=== PATIENT | female | born 1980 | race American Indian/Alaskan Native ===

== ENCOUNTER 2016-08-19 07:56 | Inpatient (IN) | payer OTHER ==
[2016-08-19] MEDS ORDERED: DUONEB 0.5 MG-3 MG/3 ML SOLN IH ONE (08:49)
[2016-08-19] MEDS ORDERED: TESSALON PERLES PO ONE (08:49)
[2016-08-19] MEDS ORDERED: MAGNESIUM SULFATE 2GM/50ML 50 ML IV ONE (08:50)
[2016-08-19 09:12] LABS: Basophils % (Auto) 0.8 % (0.0-1.8); Eosinophils % (Auto) 0.4 % (0.0-4.3); Hematocrit 44.1 % (30.3-42.9); Hemoglobin 13.8 gm/dl (10.1-14.3); Mean Corpuscular HGB Conc 31 % (30-34); Mean Corpuscular Volume 82 fl (79-97); Platelet Count 203 K/mm3 (140-440); Red Blood Count 5.35 M/mm3 (3.65-5.03); Red Cell Distribution Width 15.4 % (13.2-15.2); White Blood Count 13.7 K/mm3 (4.5-11.0)
[2016-08-19 09:15] LABS: Mean Corpuscular Hemoglobin 26 pg (28-32)
[2016-08-19] MEDS ORDERED: NACL 0.9% 1000 ML 1,000 ML IV ONE ×2 (09:25→09:26)
[2016-08-19 09:32] LABS: Alanine Aminotransferase 11 units/L (7-56); Albumin 3.3 g/dL (3.9-5); Albumin/Globulin Ratio 0.8 %; Alkaline Phosphatase 69 units/L (35-129); BUN/Creatinine Ratio 16.66; Bilirubin,Total 0.5 mg/dL (0.1-1.2); Blood Urea Nitrogen 10 mg/dL (7-17); Calcium 8.8 mg/dL (8.4-10.2); Carbon Dioxide 24 mmol/L (22-30); Chloride 96.9 mmol/L (98-107); Glucose 377 mg/dL (65-100); Potassium 3.5 mmol/L (3.6-5.0); Sodium 138 mmol/L (137-145); Total Protein 7.2 g/dL (6.3-8.2)
[2016-08-19 09:45] LABS: INR 1.06 (0.87-1.13)
[2016-08-19 09:46] LABS: Partial Thromboplastin Time 26.8 Sec. (24.2-36.6)
[2016-08-19 09:50] LABS: Anion Gap 21 mmol/L
--- NOTE | 2016-08-19 09:51 | Admit Criteria Form ---
Admission Criteria Documentation: PULMONARY DISEASE GRG Clinical Indications for Admission to Inpatient Care ( Place 'X' for any and all applicable criteria): Hospital admission is needed for appropriate care of the patient because of ANY ONE of the following(1): [ ]I. Impending or actual respiratory arrest ( Use Respiratory Failure Criteria for severe respiratory disease and long-term mechanical ventilation patients) (4) [ ]II. Severe airflow or ventilation abnormalities (not responsive to emergency and observation care treatment as appropriate) as indicated by ANY ONE of the following(5)(6)(7)(8) : [ ]a) PCO2 > 42 mm Hg (5.6 kPa) and pH < 7.35 (new) [ ]b) Documented PCO2 increase > 5 mm Hg (0.7 kPa) from disease baseline [ ]c) Airflow measurements[A] < 60% of previous best or predicted ( e.g., PEF <300 L/minute) despite intensive emergent treatment[B] [ ]d) Required respiratory treatments that are performable only in acute inpatient setting [ X]III. Severe respiratory findings (not responsive to emergency and observation care treatment as appropriate) including ANY ONE of the following(5)(8)(9): [X]a) Respiratory distress as indicated by ALL of the following(5)(10): [X ]i) Patient with ANY ONE of the following: [ ]1) Dyspnea (difficulty breathing) [ ]2) Abnormal breathing pattern (eg, chest retractions) [X ]3) Tachypnea [ ]4) Other evidence of difficulty breathing [X ]ii) Evidence of respiratory compromise indicated by ANY ONE of the following: [X ]1) Hypoxemia [ ]2) Altered mental status [ ]3) Other evidence of respiratory compromise (eg, pulmonary edema on chest x-ray) [ ]b) Stridor [ ]c) Gross hemoptysis(11) [ ]d) Acute cyanosis [ ]IV. High-risk pulmonary infection as indicated by ANY ONE of the following( 19)(20)(21)(22): [ ]a) Temperature less than 95 degrees F(35 degrees C) or greater than 103.1 degrees F(39.5 degrees C) [ ]b) Hemodynamic instability that remains after emergency or observation level care (as appropriate) [ ]c) Immunocompromised patient (eg, AIDS, post transplant, neutropenic) [ ]d) History of severe COPD [ ]e) History of severely symptomatic congestive heart failure [ ]f) Other high-risk comorbidity (eg, poorly controlled diabetes, cirrhosis, chronic renal insufficiency) [ ]g) Hypoxemia (new) [ ]h) Outpatient, observation, or recovery facility therapy has failed, is not appropriate, or is not feasible [ ]V. Severe atelectasis or lung collapse(15)(16) [ ]. Tuberculosis requiring inpatient treatment as indicated by ANY ONE of the following(17)(18): [ ]a) New positive acid-fast bacilli sputum smear [ ]b) Positive acid-fast bacilli smear (under current treatment), with ANY ONE of the following: [ ]i) Unexposed household contacts [ ]ii) Infants or immunosuppressed household contacts [ ]iii) Patient unable or unwilling to avoid exposing others [ ]iv) Severe immunocompromised patient (eg, AIDS, post transplant, neutropenic) [ ]VII. Empyema or lung abscess(13)(14) [ ]VIII. Severe pulmonary arterial hypertension or pulmonary vascular disease requiring inpatient care indicated by ANY ONE of the following(24)(25): [ ]a) Initiation or change of vasodilators (IV, subcutaneous, or inhaled) or other vasoactive medications needed [ ]b) IV anticoagulation needed (eg, immediate anticoagulation necessary, alternatives not appropriate) [ ]c) Arterial or pulmonary artery catheter monitoring needed due to infusion or other treatment [ ]IX. Chronic lung disease with severe deterioration (not responsive to emergency and observation care treatment as appropriate) as indicated by ANY ONE of the following (6)(12): [ ]a) SaO2 5% below baseline in patient with chronic hypoxemia [ ]b) New requirement for supplemental oxygen to keep SaO2 at baseline or acceptable level [ ]c) Required supplemental oxygen performable only in acute inpatient setting [ ]d) Severe airflow or ventilation abnormalities [ ]e) Rapid rate of exacerbation onset [ ]f) Previously mobile patient unable to walk between rooms [ ]g) Inability to eat or sleep due to dyspnea [ ]h) Altered mental status [ ]X. Cystic fibrosis with severe deterioration as indicated by ANY ONE of the following(26)(27): [ ]a) Severe exacerbation that does not respond to intensified home therapy [ ]b) Pneumonia [ ]c) Hemoptysis [ ]d) Atelectasis [ ]e) Pneumothorax [ ]f) Respiratory failure [ ]g) Severe exacerbation with patient unable to perform prescribed treatments at home [ ]XI. Severe right heart failure as indicated by ANY ONE of the following(24) (25): [ ]a) Increasing organ failure (eg, liver congestion with significant and worsening or new elevation of transaminases) [ ]b) Anasarca [ ]c) Angina that requires inpatient care (eg, not treatable in emergency or observation level of care) [ ]d) Respiratory distress [ ]e) Syncope [ ]f) SBP < 90 mm Hg (new) [ ]XII. Injury requiring inpatient care (medical) as indicated by ANY ONE of the following(28): [ ]a) Significant inhalation injury (eg, smoke inhalation, other toxic inhalation) (29)(30)(31) [ ]b) Airway obstruction that remains or is unstable after emergency or observation level care(32) [ ]c) Severe pain requiring acute inpatient management [ ]d) Lung contusion [ ]e) Bronchial tree injury [ ]f) Air or fat emboli(33) [ ]g) Other injury not treatable in emergency or observation level care (eg, hemothorax) (34) [ ]XIII. Pulmonary hemorrhage or significant hemoptysis(11)(35)(36) [ ]XIV. Inpatient palliative care needed[C](37)(38)(39)(40) [ ]XV. Complications of lung transplant (eg, rejection, failure, respiratory infection) (23) [ ]XVI. Pulmonary Disease and ANY ONE of the following: [ ]a) General Admission Criteria [ ]b) Pediatric General Admission Criteria [facility] has been revised. The portions of the content which have been revised are identified through the use of italic text or in bold, and [facility] has neither reviewed nor approved the modified material. All other unmodified content is copyright [facility]. Please see references footnoted in the original [facility] edition 2016 Admission Criteria Met: Yes
--- NOTE | 2016-08-19 09:54 | XRay Report ---
Portable chest: There is a diffusely coarse bronchovascular pulmonary pattern throughout both lungs. There is no focal mass or pleural effusion. There is some question concerning ill-defined infiltrate in the lower right lung however this may be due to poor inspiration. This is not apparent on recent study of July 16, 2016. The heart is normal in size. Impression: Fibrotic lung disease. Questionable infiltrate in right lower lung.
--- NOTE | 2016-08-19 10:21 | Emergency Department Report ---
HPI - General Chief Complaint: Dyspnea/Respdistress Time Seen by Provider: 08/19/16 08:43 - HPI HPI: The patient is a 36 yo female with a significant history of sarcoidosis, diabetes, afib, and who presents for evaluation of dyspnea. The patient reports 1 week of progressive dyspnea, constant and severe since this morning, 4 hours prior to my eval, exacerbated with attempted exertion or activity, and associated with wheezing, mild midsternal chest tightness, and a nonproductive cough. The patient denies fever, syncope, hemoptysis, unilateral leg swelling, oral contraceptive use, recent immobilization, history of DVT or PE, hx cancer. ED Past Medical Hx - Past Medical History Previous Medical History?: Yes Hx Hypertension: Yes Hx Diabetes: Yes Additional medical history: Sarchoidosis. Afib - Surgical History Past Surgical History?: Yes Additional Surgical History: x3 - Social History Smoking Status: Current Every Day Smoker Substance Use Type: None - Medications Home Medications: Home Medications Medication Instructions Recorded Confirmed Last Taken Type ALBUTEROL Inhaler [ProAir HFA 2 puff IH QID PRN #1 inhalation 07/16/16 08/19/16 Unknown Rx Inhaler] ALBUTEROL NEB's [Proventil 0.083% 2.5 mg IH QID PRN #1 box 07/16/16 08/19/16 Unknown Rx NEBS] Amiodarone [Cordarone 200 MG TAB] 200 mg PO DAILY #30 tablet 07/16/16 08/19/16 Unknown Rx Aspirin 162 mg PO DAILY 07/16/16 08/19/16 Unknown History Insulin NPH Hum/Reg Insulin Hm 50 unit SQ BID 07/16/16 08/19/16 Unknown History [HumuLIN 70-30 Vial] Lisinopril/Hydrochlorothiazide 1 tab PO QDAY #30 tablet 07/16/16 08/19/16 Unknown Rx [Zestoretic 10-12.5 mg] Metoprolol Tartrate [Lopressor] 50 mg PO BID 07/16/16 08/19/16 Unknown History predniSONE [Deltasone] 20 mg PO BID #14 tablet 07/16/16 08/19/16 Unknown Rx ED Review of Systems ROS: Stated complaint: SARCOID /AIFIB Other details as noted in HPI Constitutional: denies: fever ENT: denies: throat or neck pain Respiratory: reports cough, shortness of breath Cardiovascular: denies: chest pain Endocrine: denies unexplained weight loss or gain Gastrointestinal: denies: abdominal pain, nausea Genitourinary: denies: dysuria Musculoskeletal: denies: leg swelling Skin: denies: rash Neurological: denies: headache Hematological/Lymphatic: denies: easy bleeding or easy bruising Psych: denies sadness or hopelessness Physical Exam - Physical Exam Vital Signs: Vital Signs 08/19/16 08/19/16 08/19/16 08:40 08:49 09:00 Temperature 100 F H Pulse Rate 133 H 131 H Pulse Rate [ Anterior Bilateral Throughout] Respiratory 41 H Rate Respiratory Rate [Anterior Bilateral Throughout] Blood Pressure 151/90 O2 Sat by Pulse 94 100 97 Oximetry 08/19/16 08/19/16 09:03 09:26 Temperature Pulse Rate Pulse Rate [ 131 H 128 H Anterior Bilateral Throughout] Respiratory Rate Respiratory 26 H 20 Rate [Anterior Bilateral Throughout] Blood Pressure O2 Sat by Pulse Oximetry Physical Exam: General: well-nourished, well-developed, no acute distress Head: Normocephalic, atraumatic Eyes: normal sclera ENT: Mucous membranes are pale and dry Neck: trachea midline, neck supple, No neck stiffness, no cervical adenopathy Respiratory: Patient tachypnea, positive costal retractions, mild respiratory distress, diminished breath sounds and wheezing present throughout lung dunn bilaterally, rhonchi present to the right lower lung field Cardio: S1 and S2 present, no murmurs, rubs, gallops, capillary refill is delayed Abdomen: Normoactive bowel sounds, soft abdomen, no rigidity, no guarding or rebound tenderness Chest WALL/Back: No tenderness to palpation of the chest wall, no CVA tenderness with percussion Musc: No pitting edema Skin: No rash Neuro: no facial drooping, normal speech Psych: Normal affect ED Course Vital Signs 08/19/16 08/19/16 08/19/16 08:40 08:49 09:00 Temperature 100 F H Pulse Rate 133 H 131 H Pulse Rate [ Anterior Bilateral Throughout] Respiratory 41 H Rate Respiratory Rate [Anterior Bilateral Throughout] Blood Pressure 151/90 O2 Sat by Pulse 94 100 97 Oximetry 08/19/16 08/19/16 09:03 09:26 Temperature Pulse Rate Pulse Rate [ 131 H 128 H Anterior Bilateral Throughout] Respiratory Rate Respiratory 26 H 20 Rate [Anterior Bilateral Throughout] Blood Pressure O2 Sat by Pulse Oximetry ED Medical Decision Making - Lab Data Result diagrams: 08/19/16 09:00 08/19/16 09:00 - Medical Decision Making The patient was seen and examined by myself. The patient is placed on a cherry cutter and continuous pulse ox. On initial evaluation, the patient was found to be in mild respiratory distress, with hypoxia, oxygen saturation in the 70% on room air, and a low-grade temperature of 100 Fahrenheit. The patient is placed on a nonrebreather and oxygen saturation normalizes. The patient is given a tablet of Tylenol for her fever. Evaluation orders were placed. The patient given a DuoNeb breathing treatment, IV solumedrol, and IV magnesium for treatment of dyspnea and wheezing. x-ray of the chest reveals diffuse interstitial lung scarring and a right lower lobe infiltrate suspicious for pneumonia. The patient is given IV Rocephin and Levaquin for treatment of pneumonia. Lab results reveal hyperglycemia 377, LA 2.3, leukocytosis, WBC 13 and hypoxemia, PO2 61 on ABG. The patient is placed on Ventimask and FiO2 is titrated upward. The patient is given IV insulin for treatment of hyperglycemia and 2 L normal saline fluid bolus for treatment of dehydration. Medical records were reviewed and revealed that the patient received a CT as a gram of the chest one month ago which was negative for pulmonary embolism. The patient's d-dimer today is comparable to d-dimer level during that previous evaluation. The on-call hospitalist service was contacted. They agreed to admit the patient for further treatment and close monitoring. The ED admit order was placed. The patient was admitted in guarded condition. Critical care attestation.: If time is entered above; I have spent that time in minutes in the direct care of this critically ill patient, excluding procedure time. ED Disposition Clinical Impression: Acute hyperglycemia, Hypoxia, Interstitial lung disease, Dehydration Pneumonia Qualifiers: Pneumonia type: due to unspecified organism Laterality: right Lung location: lower lobe of lung Qualified Code(s): J18.9 - Pneumonia, unspecified organism Disposition: OP ADMITTED IP TO THIS HOSP Is pt being admited?: Yes Does the pt Need Aspirin: Yes Condition: Serious Instructions: Bacterial Pneumonia (ED) Referrals: PRIMARY CARE, [Primary Care Provider] - 3-5 Days Time of Disposition: 09:42
[2016-08-19] MEDS ORDERED: TYLENOL PO ONE (10:23)
[2016-08-19] MEDS ORDERED: BABY ASPIRIN PO ONE (10:24)
[2016-08-19] MEDS ORDERED: ROCEPHIN/NS 1 GM/50 ML 50 ML IV ONE (10:29)
[2016-08-19] MEDS ORDERED: LEVAQUIN 500MG/100ML 100 ML IV ONE (10:29)
[2016-08-19 10:33] LABS: ISTAT Base Excess -3; ISTAT HCO3 21.4; ISTAT PCO2 33.8 (35-45); ISTAT PO2 61 (80-105); ISTAT SO2 91; ISTAT TCO2 22
[2016-08-19] MEDS ORDERED: MILK OF MAGNESIA PO PRN (11:55)
[2016-08-19] MEDS ORDERED: D50W (25GM) IV PRN (11:55)
[2016-08-19] MEDS ORDERED: DULCOLAX PR PRN (11:55)
[2016-08-19] MEDS ORDERED: ZOFRAN IV PRN (11:55)
[2016-08-19] MEDS ORDERED: PROVENTIL IH PRN (12:03)
[2016-08-19] MEDS ORDERED: NON-FORMULARY (Lisinopril/Hydrochlorothiazide [Zestoretic 10-12.5 Mg] 1 TAB) PO SCH (12:15)
[2016-08-19] MEDS: BABY ASPIRIN PO SCH (12:41)
[2016-08-19] MEDS ORDERED: HCTZ ONE (13:00)
[2016-08-19] MEDS ORDERED: LOPRESSOR ONE (13:00)
[2016-08-19] MEDS ORDERED: ZESTRIL ONE (13:00)
[2016-08-19] MEDS: LOPRESSOR PO SCH ×2 (13:16→21:57)
[2016-08-19] MEDS: DUONEB 0.5 MG-3 MG/3 ML SOLN IH SCH ×2 (14:15→20:55)
[2016-08-19] MEDS: NOVOLOG SUB-Q SCH (16:40)
[2016-08-19 18:45] LABS: Bilirubin,Urine NEG (Negative); Blood,Urine NEG (Negative); Ketones,Urine NEG (Negative); Leukocyte Esterase,Urine NEG (Negative); Nitrite,Urine NEG (Negative); Urobilinogen,Urine < 2.0 mg/dL (<2.0)
[2016-08-19] MEDS: DELTASONE PO SCH (21:57)
[2016-08-19] MEDS: TYLENOL PO PRN (22:02)
--- NOTE | 2016-08-19 22:36 | History and Physical Report ---
History of Present Illness Date of examination: 08/19/16 Date of admission: 08/19/16 11:56 Chief complaint: SOB, Cough History of present illness: Patient is a 36 years old obese -[place] female with past medical history significant for sarcoidosis, atrial fibrillation on amiodarone for 6-7 years, HTN, DM, who presents to the ER complaining of cough, shortness of breath and chest tightness; her symptoms started approximately 2 weeks ago after she ran out of all her medications (lost [facility] insurance) and since then worsened progressively; her cough is productive at times; there was no fever, but chills were present; no sick contacts. Past History Past Medical History: atrial fib, diabetes, hypertension, sarcoidosis Past Surgical History: (x3) Social history: other (former smoker, denies alcohol or drug use) Family history: diabetes, hypertension, other (lupus (sister)) Medications and Allergies Allergies Allergy/AdvReac Type Severity Reaction Status Date / Time No Known Allergies Allergy Verified 07/16/16 17:20 Home Medications Medication Instructions Recorded Confirmed Last Taken Type ALBUTEROL Inhaler [ProAir HFA 2 puff IH QID PRN #1 inhalation 07/16/16 08/19/16 Unknown Rx Inhaler] ALBUTEROL NEB's [Proventil 0.083% 2.5 mg IH QID PRN #1 box 07/16/16 08/19/16 Unknown Rx NEBS] Amiodarone [Cordarone 200 MG TAB] 200 mg PO DAILY #30 tablet 07/16/16 08/19/16 Unknown Rx Aspirin 162 mg PO DAILY 07/16/16 08/19/16 Unknown History Insulin NPH Hum/Reg Insulin Hm 50 unit SQ BID 07/16/16 08/19/16 Unknown History [HumuLIN 70-30 Vial] Lisinopril/Hydrochlorothiazide 1 tab PO QDAY #30 tablet 07/16/16 08/19/16 Unknown Rx [Zestoretic 10-12.5 mg] Metoprolol Tartrate [Lopressor] 50 mg PO BID 07/16/16 08/19/16 Unknown History predniSONE [Deltasone] 20 mg PO BID #14 tablet 07/16/16 08/19/16 Unknown Rx Active Meds: Active Medications Acetaminophen (Tylenol) 650 mg PO Q4H PRN PRN Reason: Pain MILD(1-3)/Fever >100.5/IBRAHIM Last Admin: 08/19/16 22:02 Dose: 650 mg Albuterol (Proventil) 2.5 mg IH QID PRN PRN Reason: Wheezing Albuterol/Ipratropium (Duoneb 0.5 Mg-3 Mg/3 Ml Soln) 1 ampul IH Q6HRT [facility] Last Admin: 08/19/16 20:55 Dose: 1 ampul Aspirin (Baby Aspirin) 162 mg PO DAILY [facility] Last Admin: 08/19/16 12:41 Dose: Not Given Bisacodyl (Dulcolax) 10 mg [place] QDAY PRN PRN Reason: Constipation unrelieved by MOM Dextrose (D50w (25gm)) 50 ml IV PRN PRN PRN Reason: Hypoglycemia Enoxaparin Sodium (Lovenox) 40 mg SUB-Q QDAY [facility] Hydrochlorothiazide (Hctz) 12.5 mg PO QDAY [facility] Levofloxacin/Dextrose (Levaquin 750mg/150ml) 150 mls @ 100 mls/hr IV Q24HR [facility] PRN Reason: Protocol Insulin Aspart (Novolog) 0 units SUB-Q ACHS [facility] PRN Reason: Protocol Last Admin: 08/19/16 16:40 Dose: 6 units Insulin Human Isoph/Insulin Regular (Novolin 70/30) 50 unit SUB-Q BID [facility] Last Admin: 08/19/16 21:58 Dose: 50 unit Lisinopril (Zestril) 10 mg PO QDAY [facility] Magnesium Hydroxide (Milk Of Magnesia) 30 ml PO Q4H PRN PRN Reason: Constipation Metoprolol Tartrate (Lopressor) 50 mg PO BID [facility] Last Admin: 08/19/16 21:57 Dose: 50 mg Ondansetron HCl (Zofran) 4 mg IV Q8H PRN PRN Reason: N/V unrelieved by Reglan Prednisone (Deltasone) 20 mg PO BID [facility] Last Admin: 08/19/16 21:57 Dose: 20 mg Review of Systems Constitutional: chills, fatigue, no weight loss, no weight gain, no fever Ears, nose, mouth and throat: no ear pain, no nasal congestion, no nasal discharge, no sinus pressure, no dysphagia, no sore throat Cardiovascular: edema, shortness of breath, decreased exercise tolerance, no palpitations, no syncope, no lightheadedness Respiratory: cough, cough with sputum, shortness of breath, dyspnea on exertion , no congestion, no wheezing Gastrointestinal: no abdominal pain, no nausea, no vomiting, no change in bowel habits Genitourinary Female: no pelvic pain, no flank pain, no dysuria, no urinary frequency Rectal: no pain, no incontinence, no itching, no hemorrhoids Musculoskeletal: no arm numbness/tingling, no leg numbness/tingling Integumentary: no rash, no pruritis, no sores, no wounds Neurological: no paralysis, no weakness, no parathesias, no numbness, no tingling, no seizures, no syncope Psychiatric: no anxiety, no memory loss, no depression, no difficulties concentrating Endocrine: no cold intolerance, no heat intolerance, no polydipsia, no polyuria Hematologic/Lymphatic: no easy bruising, no easy bleeding, no lymphadenopathy, no lymphedema Allergic/Immunologic: no persistent infections Exam - Constitutional Vitals: Temp Pulse Resp BP Pulse Ox 98.5 F 102 H 20 148/100 96 08/19/16 21:00 08/19/16 21:16 08/19/16 21:16 08/19/16 21:00 08/19/16 21:00 General appearance: Present: mild distress, obese - EENT Eyes: Present: PERRL, EOM intact. Absent: scleral icterus, conjunctival injection - Neck Neck: Present: supple, normal ROM. Absent: enlarged thyroid, masses or JVD - Respiratory Respiratory effort: labored Respiratory: right: rhonchi, bilateral: diminished, negative: rales, wheezing - Cardiovascular Rhythm: other (tachycardic) Heart Sounds: Present: S1 & S2. Absent: systolic murmur - Extremities Extremities: no ischemia Extremity abnormal: edema - Abdominal General gastrointestinal: Present: soft, non-tender, non-distended, normal bowel sounds - Integumentary Integumentary: Present: warm, dry. Absent: jaundice, rash - Musculoskeletal Musculoskeletal: strength equal bilaterally - Psychiatric Psychiatric: appropriate mood/affect, intact judgment & insight, cooperative - Neurologic Neurologic: CNII-XII intact, no focal deficits Results - Labs CBC & Chem 7: 08/19/16 09:00 08/19/16 09:00 Labs: Abnormal lab results 01/12/2908/19/16 08/19/16 Range/Units 12:09 12:09 12:09 POC Glucose (70-105) Hemoglobin A1c 12.4 H (4-6) % Lactic Acid 3.2 H* (0.7-2.0) mmol/L Cholesterol 200 H (50-199) mg/dL 08/19/16 08/19/16 08/19/16 Range/Units 13:11 15:19 16:27 POC Glucose 360 H 335 H (70-105) Hemoglobin A1c (4-6) % Lactic Acid 2.2 H* (0.7-2.0) mmol/L Cholesterol (50-199) mg/dL 08/19/16 Range/Units 20:36 POC Glucose 293 H (70-105) Hemoglobin A1c (4-6) % Lactic Acid (0.7-2.0) mmol/L Cholesterol (50-199) mg/dL - Imaging and Cardiology EKG: image reviewed (sinus tachycardia) Chest x-ray: image reviewed (fibrotic lung changes bilateral; possible RLL infiltrate) Assessment and Plan 1. Sepsis/PNA Cough associated with tachycardia, tachypnea, leukocytosis; chest x-ray with RLL infiltrate Obtain blood and sputum cultures, check lactic acid Start antibiotics, IV fluids 2. Acute respiratory failure Secondary to pneumonia superimposed on sarcoidosis with fibrotic lung changes Supplemental oxygen, pulmonary toileting, NIPPV as needed 3. Sarcoidosis On chronic prednisone which she ran out 2 weeks ago Had no recent follow-up Resume corticosteroids Refer for pulmonary outpatient follow-up as she wants to establish care (also may need sleep study) 4. H/o Afib On amiodarone for rate control; was started 6-7 years and had no recent follow- up Refused anticoagulation; was only on antiplatelet therapy Currently she is on sinus rhythm Will monitor on telemetry Discontinue amiodarone given her age, lateral lung fibrotic changes and sarcoidosis Continue metoprolol for rate control if needed along with aspirin 5. DM Uncontrolled, BS almost 400 on admission Resume insulin 70/30 Add SSI based Accu-Cheks to assess insulin requirements and make adjustments Check hemoglobin A1c and lipid profile 6. HTN Restart home antihypertensives - metoprolol, lisinopril, HCTZ Monitor BP and adjust regimen as needed 7. Hypokalemia Mild, monitor 8. Obesity Counseled regarding importance of losing weight and lifestyle changes 9. DVT prophylaxis Lovenox
[2016-08-20] MEDS: DUONEB 0.5 MG-3 MG/3 ML SOLN IH SCH ×4 (02:41→20:04)
[2016-08-20] MEDS: NOVOLOG SUB-Q SCH ×5 (08:30→22:35)
[2016-08-20 08:36] LABS: Hematocrit 43.6 % (30.3-42.9); Hemoglobin 13.6 gm/dl (10.1-14.3); Mean Corpuscular HGB Conc 31 % (30-34); Mean Corpuscular Hemoglobin 26 pg (28-32); Mean Corpuscular Volume 83 fl (79-97); Platelet Count 208 K/mm3 (140-440); Red Blood Count 5.26 M/mm3 (3.65-5.03); Red Cell Distribution Width 15.7 % (13.2-15.2); White Blood Count 22.5 K/mm3 (4.5-11.0)
[2016-08-20 08:52] LABS: Anion Gap 20 mmol/L; BUN/Creatinine Ratio 16.66; Blood Urea Nitrogen 10 mg/dL (7-17); Calcium 8.6 mg/dL (8.4-10.2); Carbon Dioxide 25 mmol/L (22-30); Chloride 97.7 mmol/L (98-107); Glucose 284 mg/dL (65-100); Potassium 4.5 mmol/L (3.6-5.0); Sodium 138 mmol/L (137-145)
[2016-08-20 09:31] LABS: Anisocytosis 1+; Basophils % (Manual) 0 % (0.0-1.8); Blastocytes % (Manual) 0 %; Eosinophils % (Manual) 0 % (0.0-4.3); Poikilocytosis 1+
[2016-08-20 09:32] LABS: Diff Status Complete; Ovalocytes 1+; Polychromasia 1+; Tear Drop Cells Rare
[2016-08-20] MEDS: BABY ASPIRIN PO SCH (10:31)
[2016-08-20] MEDS: DELTASONE PO SCH ×2 (10:31→22:32)
[2016-08-20] MEDS: HCTZ PO SCH (10:32)
[2016-08-20] MEDS: LOVENOX SUB-Q SCH (10:32)
[2016-08-20] MEDS: LOPRESSOR PO SCH ×2 (10:32→22:32)
[2016-08-20] MEDS: LEVAQUIN 750MG/150ML 150 ML IV SCH (10:32)
[2016-08-20] MEDS: ZESTRIL PO SCH (10:34)
--- NOTE | 2016-08-20 17:13 | Progress Note ---
Assessment and Plan Assessment and plan: 1. Sepsis/PNA Cough associated with tachycardia, tachypnea, leukocytosis; chest x-ray with RLL infiltrate Blood and sputum cultures obtained, results pending; lactic acid mildly elevated, but trending down Continue antibiotics, IV fluids Leukocytosis worsening, but most likely secondary to corticosteroid use 2. Acute respiratory failure Secondary to pneumonia superimposed on sarcoidosis with fibrotic lung changes Supplemental oxygen, pulmonary toileting, NIPPV as needed 3. Sarcoidosis On chronic prednisone which she ran out 2 weeks ago Had no recent follow-up Corticosteroids resumed Referal for pulmonary outpatient follow-up as she wants to establish care (also may need sleep study) 4. H/o Afib On amiodarone for rate control; was started 6-7 years and had no recent follow- up Refused anticoagulation; was only on antiplatelet therapy Currently on sinus rhythm Monitor on telemetry Amiodarone discontinued given her age, bilateral lung fibrotic changes and sarcoidosis Continue metoprolol for rate control if needed along with aspirin 5. DM Uncontrolled, BS almost 400 on admission Insulin 70/30 resumed Hemoglobin A1c 12 Will increase dose of 70/30 And tinea Accu-Cheks and SSI to assess insulin requirements and make further adjustments 6. Hyperlipidemia Lipid profile checked and total cholesterol 200, LDL 126 Start statin 7. HTN BP controlled on metoprolol, lisinopril, HCTZ Continue to monitor and adjust regimen as needed 8. Hypokalemia Resolved 9. Obesity Counseled regarding importance of losing weight and lifestyle changes 10. DVT prophylaxis Lovenox History Interval history: no significant change, still SOB, using nonrebreather Hospitalist Physical - Constitutional Vitals: Temp Pulse Resp BP Pulse Ox 97.8 F 108 H 20 135/90 96 08/20/16 12:00 08/20/16 14:13 08/20/16 14:13 08/20/16 12:00 08/20/16 12:00 General appearance: Present: mild distress, obese - EENT Eyes: Present: PERRL, EOM intact. Absent: scleral icterus, conjunctival injection - Neck Neck: Present: supple, normal ROM. Absent: masses or JVD - Respiratory Respiratory effort: labored Respiratory: bilateral: diminished, rhonchi, negative: wheezing - Cardiovascular Rhythm: other (tachycardic) Heart Sounds: Present: S1 & S2. Absent: systolic murmur - Extremities Extremities: no ischemia - Abdominal General gastrointestinal: soft, non-tender, non-distended, normal bowel sounds - Integumentary Integumentary: Present: warm, dry. Absent: jaundice, rash - Psychiatric Psychiatric: cooperative - Neurologic Neurologic: CNII-XII intact, no focal deficits Results - Labs CBC & Chem 7: 08/20/16 07:20 08/20/16 07:20 Labs: Laboratory Last Values WBC 22.5 K/mm3 (4.5-11.0) H 08/20/16 07:20 RBC 5.26 M/mm3 (3.65-5.03) H 08/20/16 07:20 Hgb 13.6 gm/dl (10.1-14.3) 08/20/16 07:20 Hct 43.6 % (30.3-42.9) H 08/20/16 07:20 MCV 83 fl (79-97) 08/20/16 07:20 MCH 26 pg (28-32) L 08/20/16 07:20 MCHC 31 % (30-34) 08/20/16 07:20 RDW 15.7 % (13.2-15.2) H 08/20/16 07:20 Plt Count 208 K/mm3 (140-440) 08/20/16 07:20 Lymph % (Auto) 11.5 % (13.4-35.0) L 08/19/16 09:00 [place] % (Auto) 6.4 % (0.0-7.3) 08/19/16 09:00 Eos % (Auto) 0.4 % (0.0-4.3) 08/19/16 09:00 Baso % (Auto) 0.8 % (0.0-1.8) 08/19/16 09:00 Lymph # 1.6 K/mm3 (1.2-5.4) 08/19/16 09:00 [place] # 0.9 K/mm3 (0.0-0.8) H 08/19/16 09:00 Eos # 0.1 K/mm3 (0.0-0.4) 08/19/16 09:00 Baso # 0.1 K/mm3 (0.0-0.1) 08/19/16 09:00 Add Manual Diff Complete 08/20/16 07:20 Total Counted 100 08/20/16 07:20 Seg Neutrophils % 80.9 % (40.0-70.0) H 08/19/16 09:00 Seg Neuts % (Manual) 83.0 % (40.0-70.0) H 08/20/16 07:20 Band Neutrophils % 3.0 % 08/20/16 07:20 Lymphocytes % (Manual) 7.0 % (13.4-35.0) L 08/20/16 07:20 Reactive Lymphs % (Man) 0 % 08/20/16 07:20 Monocytes % (Manual) 7.0 % (0.0-7.3) 08/20/16 07:20 Eosinophils % (Manual) 0 % (0.0-4.3) 08/20/16 07:20 Basophils % (Manual) 0 % (0.0-1.8) 08/20/16 07:20 Metamyelocytes % 0 % 08/20/16 07:20 Myelocytes % 0 % 08/20/16 07:20 Promyelocytes % 0 % 08/20/16 07:20 Blast Cells % 0 % 08/20/16 07:20 Nucleated RBC % Not Reportable 08/20/16 07:20 Seg Neutrophils # 11.1 K/mm3 (1.8-7.7) H 08/19/16 09:00 Seg Neutrophils # Man 18.7 K/mm3 (1.8-7.7) H 08/20/16 07:20 Band Neutrophils # 0.7 K/mm3 08/20/16 07:20 Lymphocytes # (Manual) 1.6 K/mm3 (1.2-5.4) 08/20/16 07:20 Abs React Lymphs (Man) 0.0 K/mm3 08/20/16 07:20 Monocytes # (Manual) 1.6 K/mm3 (0.0-0.8) H 08/20/16 07:20 Eosinophils # (Manual) 0.0 K/mm3 (0.0-0.4) 08/20/16 07:20 Basophils # (Manual) 0.0 K/mm3 (0.0-0.1) 08/20/16 07:20 Metamyelocytes # 0.0 K/mm3 08/20/16 07:20 Myelocytes # 0.0 K/mm3 08/20/16 07:20 Promyelocytes # 0.0 K/mm3 08/20/16 07:20 Blast Cells # 0.0 K/mm3 08/20/16 07:20 WBC Morphology Not Reportable 08/20/16 07:20 Hypersegmented Neuts Not Reportable 08/20/16 07:20 Hyposegmented Neuts Not Reportable 08/20/16 07:20 Hypogranular Neuts Not Reportable 08/20/16 07:20 Smudge Cells Not Reportable 08/20/16 07:20 Toxic Granulation Not Reportable 08/20/16 07:20 Toxic Vacuolation Not Reportable 08/20/16 07:20 Dohle Bodies Not Reportable 08/20/16 07:20 Pelger-Huet Anomaly Not Reportable 08/20/16 07:20 Amanda Rods Not Reportable 08/20/16 07:20 Platelet Estimate Appears normal 08/20/16 07:20 Clumped Platelets Not Reportable 08/20/16 07:20 Plt Clumps, EDTA Not Reportable 08/20/16 07:20 Large Platelets Not Reportable 08/20/16 07:20 Giant Platelets Not Reportable 08/20/16 07:20 Platelet Satelliting Not Reportable 08/20/16 07:20 Plt Morphology Comment Not Reportable 08/20/16 07:20 RBC Morphology Not Reportable 08/20/16 07:20 Dimorphic RBCs Not Reportable 08/20/16 07:20 Polychromasia 1+ 08/20/16 07:20 Hypochromasia Not Reportable 08/20/16 07:20 Poikilocytosis 1+ 08/20/16 07:20 Anisocytosis 1+ 08/20/16 07:20 Microcytosis Not Reportable 08/20/16 07:20 Macrocytosis Not Reportable 08/20/16 07:20 Spherocytes Not Reportable 08/20/16 07:20 Pappenheimer Bodies Not Reportable 08/20/16 07:20 Sickle Cells Not Reportable 08/20/16 07:20 Target Cells Not Reportable 08/20/16 07:20 Tear Drop Cells Rare 08/20/16 07:20 Ovalocytes 1+ 08/20/16 07:20 Helmet Cells Not Reportable 08/20/16 07:20 Wang-Rupert Bodies Not Reportable 08/20/16 07:20 [place] Rings Not Reportable 08/20/16 07:20 [place] Cells Not Reportable 08/20/16 07:20 Bite Cells Not Reportable 08/20/16 07:20 Crenated Cell Not Reportable 08/20/16 07:20 Elliptocytes Not Reportable 08/20/16 07:20 Acanthocytes (Spur) Not Reportable 08/20/16 07:20 Rouleaux Not Reportable 08/20/16 07:20 Hemoglobin C Crystals Not Reportable 08/20/16 07:20 Schistocytes Not Reportable 08/20/16 07:20 Malaria parasites Not Reportable 08/20/16 07:20 Adriano Bodies Not Reportable 08/20/16 07:20 Hem Pathologist Commnt No 08/20/16 07:20 PT 13.7 Sec. (12.2-14.9) 08/19/16 09:00 INR 1.06 (0.87-1.13) 08/19/16 09:00 APTT 26.8 Sec. (24.2-36.6) 08/19/16 09:00 D-Dimer 489.79 ng/mlDDU (0-234) H 08/19/16 09:00 POC ABG pH 7.410 (7.35-7.45) 08/19/16 10:28 POC ABG pCO2 33.8 (35-45) L 08/19/16 10:28 POC ABG pO2 61 (80-105) L 08/19/16 10:28 POC ABG HCO3 21.4 08/19/16 10:28 POC ABG Total CO2 22 08/19/16 10:28 POC ABG O2 Sat 91 08/19/16 10:28 POC ABG Base Excess -3 08/19/16 10:28 FiO2 40 % 08/19/16 10:28 Sodium 138 mmol/L (137-145) 08/20/16 07:20 Potassium 4.5 mmol/L (3.6-5.0) D 08/20/16 07:20 Chloride 97.7 mmol/L (98-107) L 08/20/16 07:20 Carbon Dioxide 25 mmol/L (22-30) 08/20/16 07:20 Anion Gap 20 mmol/L 08/20/16 07:20 BUN 10 mg/dL (7-17) 08/20/16 07:20 Creatinine 0.6 mg/dL (0.7-1.2) L 08/20/16 07:20 Estimated GFR > 60 ml/min 08/20/16 07:20 BUN/Creatinine Ratio 16.66 % 08/20/16 07:20 Glucose 284 mg/dL (65-100) H 08/20/16 07:20 POC Glucose 293 (70-105) H 08/19/16 20:36 Hemoglobin A1c 12.4 % (4-6) H 08/19/16 12:09 Lactic Acid 2.2 mmol/L (0.7-2.0) H* 08/19/16 15:19 Calcium 8.6 mg/dL (8.4-10.2) 08/20/16 07:20 Total Bilirubin 0.5 mg/dL (0.1-1.2) 08/19/16 09:00 AST 12 units/L (5-40) 08/19/16 09:00 ALT 11 units/L (7-56) 08/19/16 09:00 Alkaline Phosphatase 69 units/L (35-129) 08/19/16 09:00 Troponin T < 0.010 ng/mL (0.00-0.029) 08/19/16 09:00 NT-Pro-B Natriuret Pep 58.23 pg/mL (0-450) 08/19/16 09:00 Total Protein 7.2 g/dL (6.3-8.2) 08/19/16 09:00 Albumin 3.3 g/dL (3.9-5) L 08/19/16 09:00 Albumin/Globulin Ratio 0.8 % 08/19/16 09:00 Triglycerides 97 mg/dL (2-149) 08/19/16 12:09 Cholesterol 200 mg/dL (50-199) H 08/19/16 12:09 LDL Cholesterol Direct 126 mg/dL (50-130) 08/19/16 12:09 HDL Cholesterol 55 mg/dL (40-59) 08/19/16 12:09 Cholesterol/HDL Ratio 3.63 % 08/19/16 12:09 HCG, Qual Negative (Negative) 08/19/16 09:00 Urine Color Straw (Yellow) 08/19/16 18:36 Urine Turbidity Clear (Clear) 08/19/16 18:36 Urine pH 5.0 (5.0-7.0) 08/19/16 18:36 Ur Specific [place] 1.023 (1.003-1.030) 08/19/16 18:36 Urine Protein 100 mg/dl mg/dL (Negative) 08/19/16 18:36 Urine Glucose (UA) >=500 mg/dL (Negative) 08/19/16 18:36 Urine Ketones Neg mg/dL (Negative) 08/19/16 18:36 Urine Blood Neg (Negative) 08/19/16 18:36 Urine Nitrite Neg (Negative) 08/19/16 18:36 Urine Bilirubin Neg (Negative) 08/19/16 18:36 Urine Urobilinogen < 2.0 mg/dL (<2.0) 08/19/16 18:36 Ur Leukocyte Esterase Neg (Negative) 08/19/16 18:36 Urine WBC (Auto) 1.0 /HPF (0.0-6.0) 08/19/16 18:36 Urine RBC (Auto) 1.0 /HPF (0.0-6.0) 08/19/16 18:36 U Epithel Cells (Auto) 1.0 /HPF (0-13.0) 08/19/16 18:36 Ketones 5.9 mg/dL (0.2-2.8) H 08/19/16 09:00
[2016-08-20] MEDS: TYLENOL PO PRN (23:00)
[2016-08-20] MEDS: BENADRYL PO PRN (23:01)
[2016-08-21] MEDS: DUONEB 0.5 MG-3 MG/3 ML SOLN IH SCH ×4 (01:51→20:36)
[2016-08-21] MEDS: NOVOLOG SUB-Q SCH ×4 (08:41→21:17)
[2016-08-21 08:59] LABS: Basophils % (Auto) 0.5 % (0.0-1.8); Hematocrit 42.7 % (30.3-42.9); Hemoglobin 13.4 gm/dl (10.1-14.3); Mean Corpuscular HGB Conc 31 % (30-34); Mean Corpuscular Volume 82 fl (79-97); Platelet Count 225 K/mm3 (140-440); Red Blood Count 5.19 M/mm3 (3.65-5.03); Red Cell Distribution Width 15.8 % (13.2-15.2); White Blood Count 18.4 K/mm3 (4.5-11.0)
[2016-08-21 09:10] LABS: Mean Corpuscular Hemoglobin 26 pg (28-32)
[2016-08-21] MEDS: BABY ASPIRIN PO SCH (11:44)
[2016-08-21] MEDS: ZESTRIL PO SCH (11:44)
[2016-08-21] MEDS: DELTASONE PO SCH ×2 (11:44→21:18)
[2016-08-21] MEDS: LEVAQUIN 750MG/150ML 150 ML IV SCH (11:44)
[2016-08-21] MEDS: LOPRESSOR PO SCH ×2 (11:45→21:18)
[2016-08-21] MEDS: LOVENOX SUB-Q SCH (11:46)
[2016-08-21] MEDS: HCTZ PO SCH (11:48)
--- NOTE | 2016-08-21 20:35 | Progress Note ---
Assessment and Plan Assessment and plan: 1. Sepsis/PNA Cough associated with tachycardia, tachypnea, leukocytosis; chest x-ray with RLL infiltrate Blood and sputum cultures obtained, results pending (blood cultures negative at 48 hours); lactic acid mildly elevated, but trended down Continue antibiotics, IV fluids Leukocytosis worsening, but most likely secondary to corticosteroid use 2. Acute respiratory failure Secondary to pneumonia superimposed on sarcoidosis with fibrotic lung changes Supplemental oxygen, pulmonary toileting, NIPPV as needed 3. Sarcoidosis On chronic prednisone which she ran out 2 weeks ago Had no recent follow-up Corticosteroids resumed Referal for pulmonary outpatient follow-up as she wants to establish care (also may need sleep study) 4. H/o Afib On amiodarone for rate control; was started 6-7 years and had no recent follow- up Refused anticoagulation; was only on antiplatelet therapy Currently on sinus rhythm Monitor on telemetry Amiodarone discontinued given her age, bilateral lung fibrotic changes and sarcoidosis Continue metoprolol for rate control if needed along with aspirin 5. DM Uncontrolled, BS almost 400 on admission Insulin 70/30 resumed and dose increased as BS elevated and hemoglobin A1c 12 Continue Accu-Cheks and SSI to assess insulin requirements and make further adjustments 6. Hyperlipidemia Lipid profile checked and total cholesterol 200, LDL 126 Started on statin 7. HTN On metoprolol, lisinopril, HCTZ BP not at goal, so will increase lisinopril dose and continue to monitor 8. Hypokalemia Resolved 9. Obesity Counseled regarding importance of losing weight and lifestyle changes 10. DVT prophylaxis Lovenox History Interval history: Still significantly short of breath with minimal activity, dependent on oxygen Hospitalist Physical - Constitutional Vitals: Temp Pulse Resp BP Pulse Ox 98.6 F 96 H 20 139/95 96 08/21/16 16:30 08/21/16 16:30 08/21/16 16:30 08/21/16 16:30 08/21/16 16:30 General appearance: Present: no acute distress, obese - EENT Eyes: Present: PERRL, EOM intact. Absent: scleral icterus, conjunctival injection - Neck Neck: Present: supple, normal ROM. Absent: masses or JVD - Respiratory Respiratory effort: normal Respiratory: bilateral: diminished, negative: rhonchi, wheezing - Cardiovascular Rhythm: other (tachycardia) Heart Sounds: Present: S1 & S2. Absent: systolic murmur - Extremities Extremities: no ischemia - Abdominal General gastrointestinal: soft, non-tender, non-distended, normal bowel sounds - Integumentary Integumentary: Present: warm, dry. Absent: jaundice, rash - Psychiatric Psychiatric: cooperative - Neurologic Neurologic: CNII-XII intact, no focal deficits Results - Labs CBC & Chem 7: 08/21/16 08:27 08/20/16 07:20 Labs: Laboratory Last Values WBC 18.4 K/mm3 (4.5-11.0) H 08/21/16 08:27 RBC 5.19 M/mm3 (3.65-5.03) H 08/21/16 08:27 Hgb 13.4 gm/dl (10.1-14.3) 08/21/16 08: Hct 42.7 % (30.3-42.9) 08/21/16 08:27 MCV 82 fl (79-97) 08/21/16 08: MCH 26 pg (28-32) L 08/21/16 08: MCHC 31 % (30-34) 08/21/16 08:27 RDW 15.8 % (13.2-15.2) H 08/21/16 08:27 Plt Count 225 K/mm3 (140-440) 08/21/16 08:27 Lymph % (Auto) 13.3 % (13.4-35.0) L 08/21/16 08:27 [place] % (Auto) 5.0 % (0.0-7.3) 08/21/16 08: Eos % (Auto) 0.0 % (0.0-4.3) 08/21/16 08:27 Baso % (Auto) 0.5 % (0.0-1.8) 08/21/16 08:27 Lymph # 2.4 K/mm3 (1.2-5.4) 08/21/16 08:27 [place] # 0.9 K/mm3 (0.0-0.8) H 08/21/16 08:27 Eos # 0.0 K/mm3 (0.0-0.4) 08/21/16 08:27 Baso # 0.1 K/mm3 (0.0-0.1) 08/21/16 08:27 Add Manual Diff Complete 08/20/16 07:20 Total Counted 100 08/20/16 07:20 Seg Neutrophils % 81.2 % (40.0-70.0) H 08/21/16 08:27 Seg Neuts % (Manual) 83.0 % (40.0-70.0) H 08/20/16 07:20 Band Neutrophils % 3.0 % 08/20/16 07:20 Lymphocytes % (Manual) 7.0 % (13.4-35.0) L 08/20/16 07:20 Reactive Lymphs % (Man) 0 % 08/20/16 07:20 Monocytes % (Manual) 7.0 % (0.0-7.3) 08/20/16 07:20 Eosinophils % (Manual) 0 % (0.0-4.3) 08/20/16 07:20 Basophils % (Manual) 0 % (0.0-1.8) 08/20/16 07:20 Metamyelocytes % 0 % 08/20/16 07:20 Myelocytes % 0 % 08/20/16 07:20 Promyelocytes % 0 % 08/20/16 07:20 Blast Cells % 0 % 08/20/16 07:20 Nucleated RBC % Not Reportable 08/20/16 07:20 Seg Neutrophils # 15.0 K/mm3 (1.8-7.7) H 08/21/16 08:27 Seg Neutrophils # Man 18.7 K/mm3 (1.8-7.7) H 08/20/16 07:20 Band Neutrophils # 0.7 K/mm3 08/20/16 07:20 Lymphocytes # (Manual) 1.6 K/mm3 (1.2-5.4) 08/20/16 07:20 Abs React Lymphs (Man) 0.0 K/mm3 08/20/16 07:20 Monocytes # (Manual) 1.6 K/mm3 (0.0-0.8) H 08/20/16 07:20 Eosinophils # (Manual) 0.0 K/mm3 (0.0-0.4) 08/20/16 07:20 Basophils # (Manual) 0.0 K/mm3 (0.0-0.1) 08/20/16 07:20 Metamyelocytes # 0.0 K/mm3 08/20/16 07:20 Myelocytes # 0.0 K/mm3 08/20/16 07:20 Promyelocytes # 0.0 K/mm3 08/20/16 07:20 Blast Cells # 0.0 K/mm3 08/20/16 07:20 WBC Morphology Not Reportable 08/20/16 07:20 Hypersegmented Neuts Not Reportable 08/20/16 07:20 Hyposegmented Neuts Not Reportable 08/20/16 07:20 Hypogranular Neuts Not Reportable 08/20/16 07:20 Smudge Cells Not Reportable 08/20/16 07:20 Toxic Granulation Not Reportable 08/20/16 07:20 Toxic Vacuolation Not Reportable 08/20/16 07:20 Dohle Bodies Not Reportable 08/20/16 07:20 Pelger-Huet Anomaly Not Reportable 08/20/16 07:20 Amanda Rods Not Reportable 08/20/16 07:20 Platelet Estimate Appears normal 08/20/16 07:20 Clumped Platelets Not Reportable 08/20/16 07:20 Plt Clumps, EDTA Not Reportable 08/20/16 07:20 Large Platelets Not Reportable 08/20/16 07:20 Giant Platelets Not Reportable 08/20/16 07:20 Platelet Satelliting Not Reportable 08/20/16 07:20 Plt Morphology Comment Not Reportable 08/20/16 07:20 RBC Morphology Not Reportable 08/20/16 07:20 Dimorphic RBCs Not Reportable 08/20/16 07:20 Polychromasia 1+ 08/20/16 07:20 Hypochromasia Not Reportable 08/20/16 07:20 Poikilocytosis 1+ 08/20/16 07:20 Anisocytosis 1+ 08/20/16 07:20 Microcytosis Not Reportable 08/20/16 07:20 Macrocytosis Not Reportable 08/20/16 07:20 Spherocytes Not Reportable 08/20/16 07:20 Pappenheimer Bodies Not Reportable 08/20/16 07:20 Sickle Cells Not Reportable 08/20/16 07:20 Target Cells Not Reportable 08/20/16 07:20 Tear Drop Cells Rare 08/20/16 07:20 Ovalocytes 1+ 08/20/16 07:20 Helmet Cells Not Reportable 08/20/16 07:20 Wang-Conde Bodies Not Reportable 08/20/16 07:20 [place] Rings Not Reportable 08/20/16 07:20 [place] Cells Not Reportable 08/20/16 07:20 Bite Cells Not Reportable 08/20/16 07:20 Crenated Cell Not Reportable 08/20/16 07:20 Elliptocytes Not Reportable 08/20/16 07:20 Acanthocytes (Spur) Not Reportable 08/20/16 07:20 Rouleaux Not Reportable 08/20/16 07:20 Hemoglobin C Crystals Not Reportable 08/20/16 07:20 Schistocytes Not Reportable 08/20/16 07:20 Malaria parasites Not Reportable 08/20/16 07:20 Adriano Bodies Not Reportable 08/20/16 07:20 Hem Pathologist Commnt No 08/20/16 07:20 PT 13.7 Sec. (12.2-14.9) 08/19/16 09:00 INR 1.06 (0.87-1.13) 08/19/16 09:00 APTT 26.8 Sec. (24.2-36.6) 08/19/16 09:00 D-Dimer 489.79 ng/mlDDU (0-234) H 08/19/16 09:00 POC ABG pH 7.410 (7.35-7.45) 08/19/16 10:28 POC ABG pCO2 33.8 (35-45) L 08/19/16 10:28 POC ABG pO2 61 (80-105) L 08/19/16 10:28 POC ABG HCO3 21.4 08/19/16 10:28 POC ABG Total CO2 22 08/19/16 10:28 POC ABG O2 Sat 91 08/19/16 10:28 POC ABG Base Excess -3 08/19/16 10:28 FiO2 40 % 08/19/16 10:28 Sodium 138 mmol/L (137-145) 08/20/16 07:20 Potassium 4.5 mmol/L (3.6-5.0) D 08/20/16 07:20 Chloride 97.7 mmol/L (98-107) L 08/20/16 07:20 Carbon Dioxide 25 mmol/L (22-30) 08/20/16 07:20 Anion Gap 20 mmol/L 08/20/16 07:20 BUN 10 mg/dL (7-17) 08/20/16 07:20 Creatinine 0.6 mg/dL (0.7-1.2) L 08/20/16 07:20 Estimated GFR > 60 ml/min 08/20/16 07:20 BUN/Creatinine Ratio 16.66 % 08/20/16 07:20 Glucose 284 mg/dL (65-100) H 08/20/16 07:20 POC Glucose 201 (70-105) H 08/21/16 16:39 Hemoglobin A1c 12.4 % (4-6) H 08/19/16 12:09 Lactic Acid 2.2 mmol/L (0.7-2.0) H* 08/19/16 15:19 Calcium 8.6 mg/dL (8.4-10.2) 08/20/16 07:20 Total Bilirubin 0.5 mg/dL (0.1-1.2) 08/19/16 09:00 AST 12 units/L (5-40) 08/19/16 09:00 ALT 11 units/L (7-56) 08/19/16 09:00 Alkaline Phosphatase 69 units/L (35-129) 08/19/16 09:00 Troponin T < 0.010 ng/mL (0.00-0.029) 08/19/16 09:00 NT-Pro-B Natriuret Pep 58.23 pg/mL (0-450) 08/19/16 09:00 Total Protein 7.2 g/dL (6.3-8.2) 08/19/16 09:00 Albumin 3.3 g/dL (3.9-5) L 08/19/16 09:00 Albumin/Globulin Ratio 0.8 % 08/19/16 09:00 Triglycerides 97 mg/dL (2-149) 08/19/16 12:09 Cholesterol 200 mg/dL (50-199) H 08/19/16 12:09 LDL Cholesterol Direct 126 mg/dL (50-130) 08/19/16 12:09 HDL Cholesterol 55 mg/dL (40-59) 08/19/16 12:09 Cholesterol/HDL Ratio 3.63 % 08/19/16 12:09 HCG, Qual Negative (Negative) 08/19/16 09:00 Urine Color Straw (Yellow) 08/19/16 18:36 Urine Turbidity Clear (Clear) 08/19/16 18:36 Urine pH 5.0 (5.0-7.0) 08/19/16 18:36 Ur Specific [place] 1.023 (1.003-1.030) 08/19/16 18:36 Urine Protein 100 mg/dl mg/dL (Negative) 08/19/16 18:36 Urine Glucose (UA) >=500 mg/dL (Negative) 08/19/16 18:36 Urine Ketones Neg mg/dL (Negative) 08/19/16 18:36 Urine Blood Neg (Negative) 08/19/16 18:36 Urine Nitrite Neg (Negative) 08/19/16 18:36 Urine Bilirubin Neg (Negative) 08/19/16 18:36 Urine Urobilinogen < 2.0 mg/dL (<2.0) 08/19/16 18:36 Ur Leukocyte Esterase Neg (Negative) 08/19/16 18:36 Urine WBC (Auto) 1.0 /HPF (0.0-6.0) 08/19/16 18:36 Urine RBC (Auto) 1.0 /HPF (0.0-6.0) 08/19/16 18:36 U Epithel Cells (Auto) 1.0 /HPF (0-13.0) 08/19/16 18:36 Ketones 5.9 mg/dL (0.2-2.8) H 08/19/16 09:00
[2016-08-21] MEDS: TYLENOL PO PRN (21:17)
[2016-08-21] MEDS: BENADRYL PO PRN (21:17)
[2016-08-22] MEDS: DUONEB 0.5 MG-3 MG/3 ML SOLN IH SCH ×4 (02:25→21:21)
[2016-08-22] MEDS: LEVAQUIN 750MG/150ML 150 ML IV SCH (10:34)
[2016-08-22] MEDS: LOPRESSOR PO SCH ×2 (10:35→21:32)
[2016-08-22] MEDS: HCTZ PO SCH (10:35)
[2016-08-22] MEDS: ZESTRIL PO SCH (10:35)
[2016-08-22] MEDS: BABY ASPIRIN PO SCH (10:35)
[2016-08-22] MEDS: DELTASONE PO SCH ×2 (10:35→21:32)
[2016-08-22] MEDS: NOVOLOG SUB-Q SCH ×4 (10:36→21:32)
[2016-08-22] MEDS: LOVENOX SUB-Q SCH (10:36)
--- NOTE | 2016-08-22 15:03 | Progress Note ---
Assessment and Plan Assessment and plan: 1. Sepsis/PNA Cough associated with tachycardia, tachypnea, leukocytosis; chest x-ray with RLL infiltrate Blood and sputum cultures obtained, results pending (blood cultures negative at 72 hours); lactic acid mildly elevated, but trended down Continue antibiotics, IV fluids 2. Acute respiratory failure Secondary to pneumonia superimposed on sarcoidosis with fibrotic lung changes Supplemental oxygen, pulmonary toileting, NIPPV as needed Sats in 60s while walking, so will consult CM for home O2 Referal for outpatient pulmonary f/u 3. Sarcoidosis On chronic prednisone which she ran out ? 2 weeks (or more) prior to admission Had no recent follow-up Corticosteroids resumed Referal for pulmonary outpatient follow-up as she wants to establish care (also may need sleep study) 4. H/o Afib On amiodarone for rate control; was started 6-7 years and had no recent follow- up Refused anticoagulation; was only on antiplatelet therapy Currently on sinus rhythm Monitor on telemetry Amiodarone discontinued given her age, bilateral lung fibrotic changes and sarcoidosis Continue metoprolol for rate control if needed along with aspirin 5. DM Uncontrolled, BS almost 400 on admission Insulin 70/30 resumed and dose increased as BS elevated and hemoglobin A1c 12 Continue Accu-Cheks and SSI to assess insulin requirements and make further adjustments 6. Hyperlipidemia Lipid profile checked and total cholesterol 200, LDL 126 Started on statin 7. HTN On metoprolol, lisinopril, HCTZ BP not at goal, so lisinopril dose increased yesterday Continue to monitor and adjust regimen 8. Hypokalemia Resolved 9. Obesity Counseled regarding importance of losing weight and lifestyle changes 10. DVT prophylaxis Lovenox History Interval history: Continues to have significant dyspnea with minimal activity; sats in the 60s while walking Hospitalist Physical - Constitutional Vitals: Temp Pulse Resp BP Pulse Ox 98.6 F 94 H 20 130/71 92 08/22/16 12:51 08/22/16 14:19 08/22/16 14:19 08/22/16 12:51 08/22/16 12:51 General appearance: Present: no acute distress, obese - EENT Eyes: Present: PERRL, EOM intact. Absent: scleral icterus, conjunctival injection - Neck Neck: Present: supple, normal ROM. Absent: masses or JVD - Respiratory Respiratory effort: normal (at rest), labored (with minimal activity) Respiratory: bilateral: diminished, rhonchi, negative: wheezing - Cardiovascular Rhythm: other (tachycardic) Heart Sounds: Present: S1 & S2. Absent: systolic murmur - Extremities Extremities: no ischemia - Abdominal General gastrointestinal: soft, non-tender, non-distended, normal bowel sounds - Integumentary Integumentary: Present: warm, dry. Absent: jaundice, rash - Psychiatric Psychiatric: cooperative - Neurologic Neurologic: CNII-XII intact, no focal deficits Results - Labs CBC & Chem 7: 08/21/16 08:27 08/20/16 07:20 Labs: Laboratory Last Values WBC 18.4 K/mm3 (4.5-11.0) H 08/21/16 08:27 RBC 5.19 M/mm3 (3.65-5.03) H 08/21/16 08:27 Hgb 13.4 gm/dl (10.1-14.3) 08/21/16 08: Hct 42.7 % (30.3-42.9) 08/21/16 08:27 MCV 82 fl (79-97) 08/21/16 08:27 MCH 26 pg (28-32) L 08/21/16 08: MCHC 31 % (30-34) 08/21/16 08:27 RDW 15.8 % (13.2-15.2) H 08/21/16 08:27 Plt Count 225 K/mm3 (140-440) 08/21/16 08:27 Lymph % (Auto) 13.3 % (13.4-35.0) L 08/21/16 08:27 [place] % (Auto) 5.0 % (0.0-7.3) 08/21/16 08:27 Eos % (Auto) 0.0 % (0.0-4.3) 08/21/16 08:27 Baso % (Auto) 0.5 % (0.0-1.8) 08/21/16 08:27 Lymph # 2.4 K/mm3 (1.2-5.4) 08/21/16 08:27 [place] # 0.9 K/mm3 (0.0-0.8) H 08/21/16 08:27 Eos # 0.0 K/mm3 (0.0-0.4) 08/21/16 08:27 Baso # 0.1 K/mm3 (0.0-0.1) 08/21/16 08:27 Add Manual Diff Complete 08/20/16 07:20 Total Counted 100 08/20/16 07:20 Seg Neutrophils % 81.2 % (40.0-70.0) H 08/21/16 08:27 Seg Neuts % (Manual) 83.0 % (40.0-70.0) H 08/20/16 07:20 Band Neutrophils % 3.0 % 08/20/16 07:20 Lymphocytes % (Manual) 7.0 % (13.4-35.0) L 08/20/16 07:20 Reactive Lymphs % (Man) 0 % 08/20/16 07:20 Monocytes % (Manual) 7.0 % (0.0-7.3) 08/20/16 07:20 Eosinophils % (Manual) 0 % (0.0-4.3) 08/20/16 07:20 Basophils % (Manual) 0 % (0.0-1.8) 08/20/16 07:20 Metamyelocytes % 0 % 08/20/16 07:20 Myelocytes % 0 % 08/20/16 07:20 Promyelocytes % 0 % 08/20/16 07:20 Blast Cells % 0 % 08/20/16 07:20 Nucleated RBC % Not Reportable 08/20/16 07:20 Seg Neutrophils # 15.0 K/mm3 (1.8-7.7) H 08/21/16 08:27 Seg Neutrophils # Man 18.7 K/mm3 (1.8-7.7) H 08/20/16 07:20 Band Neutrophils # 0.7 K/mm3 08/20/16 07:20 Lymphocytes # (Manual) 1.6 K/mm3 (1.2-5.4) 08/20/16 07:20 Abs React Lymphs (Man) 0.0 K/mm3 08/20/16 07:20 Monocytes # (Manual) 1.6 K/mm3 (0.0-0.8) H 08/20/16 07:20 Eosinophils # (Manual) 0.0 K/mm3 (0.0-0.4) 08/20/16 07:20 Basophils # (Manual) 0.0 K/mm3 (0.0-0.1) 08/20/16 07:20 Metamyelocytes # 0.0 K/mm3 08/20/16 07:20 Myelocytes # 0.0 K/mm3 08/20/16 07:20 Promyelocytes # 0.0 K/mm3 08/20/16 07:20 Blast Cells # 0.0 K/mm3 08/20/16 07:20 WBC Morphology Not Reportable 08/20/16 07:20 Hypersegmented Neuts Not Reportable 08/20/16 07:20 Hyposegmented Neuts Not Reportable 08/20/16 07:20 Hypogranular Neuts Not Reportable 08/20/16 07:20 Smudge Cells Not Reportable 08/20/16 07:20 Toxic Granulation Not Reportable 08/20/16 07:20 Toxic Vacuolation Not Reportable 08/20/16 07:20 Dohle Bodies Not Reportable 08/20/16 07:20 Pelger-Huet Anomaly Not Reportable 08/20/16 07:20 Amanda Rods Not Reportable 08/20/16 07:20 Platelet Estimate Appears normal 08/20/16 07:20 Clumped Platelets Not Reportable 08/20/16 07:20 Plt Clumps, EDTA Not Reportable 08/20/16 07:20 Large Platelets Not Reportable 08/20/16 07:20 Giant Platelets Not Reportable 08/20/16 07:20 Platelet Satelliting Not Reportable 08/20/16 07:20 Plt Morphology Comment Not Reportable 08/20/16 07:20 RBC Morphology Not Reportable 08/20/16 07:20 Dimorphic RBCs Not Reportable 08/20/16 07:20 Polychromasia 1+ 08/20/16 07:20 Hypochromasia Not Reportable 08/20/16 07:20 Poikilocytosis 1+ 08/20/16 07:20 Anisocytosis 1+ 08/20/16 07:20 Microcytosis Not Reportable 08/20/16 07:20 Macrocytosis Not Reportable 08/20/16 07:20 Spherocytes Not Reportable 08/20/16 07:20 Pappenheimer Bodies Not Reportable 08/20/16 07:20 Sickle Cells Not Reportable 08/20/16 07:20 Target Cells Not Reportable 08/20/16 07:20 Tear Drop Cells Rare 08/20/16 07:20 Ovalocytes 1+ 08/20/16 07:20 Helmet Cells Not Reportable 08/20/16 07:20 Wang-[place] Bodies Not Reportable 08/20/16 07:20 [place] Rings Not Reportable 08/20/16 07:20 Mara Cells Not Reportable 08/20/16 07:20 Bite Cells Not Reportable 08/20/16 07:20 Crenated Cell Not Reportable 08/20/16 07:20 Elliptocytes Not Reportable 08/20/16 07:20 Acanthocytes (Spur) Not Reportable 08/20/16 07:20 Rouleaux Not Reportable 08/20/16 07:20 Hemoglobin C Crystals Not Reportable 08/20/16 07:20 Schistocytes Not Reportable 08/20/16 07:20 Malaria parasites Not Reportable 08/20/16 07:20 Adriano Bodies Not Reportable 08/20/16 07:20 Hem Pathologist Commnt No 08/20/16 07:20 PT 13.7 Sec. (12.2-14.9) 08/19/16 09:00 INR 1.06 (0.87-1.13) 08/19/16 09:00 APTT 26.8 Sec. (24.2-36.6) 08/19/16 09:00 D-Dimer 489.79 ng/mlDDU (0-234) H 08/19/16 09:00 POC ABG pH 7.410 (7.35-7.45) 08/19/16 10:28 POC ABG pCO2 33.8 (35-45) L 08/19/16 10:28 POC ABG pO2 61 (80-105) L 08/19/16 10:28 POC ABG HCO3 21.4 08/19/16 10:28 POC ABG Total CO2 22 08/19/16 10:28 POC ABG O2 Sat 91 08/19/16 10:28 POC ABG Base Excess -3 08/19/16 10:28 FiO2 40 % 08/19/16 10:28 Sodium 138 mmol/L (137-145) 08/20/16 07:20 Potassium 4.5 mmol/L (3.6-5.0) D 08/20/16 07:20 Chloride 97.7 mmol/L (98-107) L 08/20/16 07:20 Carbon Dioxide 25 mmol/L (22-30) 08/20/16 07:20 Anion Gap 20 mmol/L 08/20/16 07:20 BUN 10 mg/dL (7-17) 08/20/16 07:20 Creatinine 0.6 mg/dL (0.7-1.2) L 08/20/16 07:20 Estimated GFR > 60 ml/min 08/20/16 07:20 BUN/Creatinine Ratio 16.66 % 08/20/16 07:20 Glucose 284 mg/dL (65-100) H 08/20/16 07:20 POC Glucose 201 (70-105) H 08/21/16 16:39 Hemoglobin A1c 12.4 % (4-6) H 08/19/16 12:09 Lactic Acid 2.2 mmol/L (0.7-2.0) H* 08/19/16 15:19 Calcium 8.6 mg/dL (8.4-10.2) 08/20/16 07:20 Total Bilirubin 0.5 mg/dL (0.1-1.2) 08/19/16 09:00 AST 12 units/L (5-40) 08/19/16 09:00 ALT 11 units/L (7-56) 08/19/16 09:00 Alkaline Phosphatase 69 units/L (35-129) 08/19/16 09:00 Troponin T < 0.010 ng/mL (0.00-0.029) 08/19/16 09:00 NT-Pro-B Natriuret Pep 58.23 pg/mL (0-450) 08/19/16 09:00 Total Protein 7.2 g/dL (6.3-8.2) 08/19/16 09:00 Albumin 3.3 g/dL (3.9-5) L 08/19/16 09:00 Albumin/Globulin Ratio 0.8 % 08/19/16 09:00 Triglycerides 97 mg/dL (2-149) 08/19/16 12:09 Cholesterol 200 mg/dL (50-199) H 08/19/16 12:09 LDL Cholesterol Direct 126 mg/dL (50-130) 08/19/16 12:09 HDL Cholesterol 55 mg/dL (40-59) 08/19/16 12:09 Cholesterol/HDL Ratio 3.63 % 08/19/16 12:09 HCG, Qual Negative (Negative) 08/19/16 09:00 Urine Color Straw (Yellow) 08/19/16 18:36 Urine Turbidity Clear (Clear) 08/19/16 18:36 Urine pH 5.0 (5.0-7.0) 08/19/16 18:36 Ur Specific [place] 1.023 (1.003-1.030) 08/19/16 18:36 Urine Protein 100 mg/dl mg/dL (Negative) 08/19/16 18:36 Urine Glucose (UA) >=500 mg/dL (Negative) 08/19/16 18:36 Urine Ketones Neg mg/dL (Negative) 08/19/16 18:36 Urine Blood Neg (Negative) 08/19/16 18:36 Urine Nitrite Neg (Negative) 08/19/16 18:36 Urine Bilirubin Neg (Negative) 08/19/16 18:36 Urine Urobilinogen < 2.0 mg/dL (<2.0) 08/19/16 18:36 Ur Leukocyte Esterase Neg (Negative) 08/19/16 18:36 Urine WBC (Auto) 1.0 /HPF (0.0-6.0) 08/19/16 18:36 Urine RBC (Auto) 1.0 /HPF (0.0-6.0) 08/19/16 18:36 U Epithel Cells (Auto) 1.0 /HPF (0-13.0) 08/19/16 18:36 Ketones 5.9 mg/dL (0.2-2.8) H 08/19/16 09:00
[2016-08-22] MEDS: BENADRYL PO PRN (21:32)
[2016-08-22] MEDS: TYLENOL PO PRN (21:32)
[2016-08-23] MEDS: DUONEB 0.5 MG-3 MG/3 ML SOLN IH SCH ×3 (02:30→13:59)
[2016-08-23] MEDS: NOVOLOG SUB-Q SCH ×2 (08:39→22:43)
[2016-08-23] MEDS: BABY ASPIRIN PO SCH (11:16)
[2016-08-23] MEDS: DELTASONE PO SCH ×2 (11:17→22:41)
[2016-08-23] MEDS: HCTZ PO SCH (11:17)
[2016-08-23] MEDS: LOPRESSOR PO SCH ×2 (11:17→22:40)
[2016-08-23] MEDS: LEVAQUIN PO SCH (11:17)
[2016-08-23] MEDS: ZESTRIL PO SCH (11:17)
[2016-08-23] MEDS: LOVENOX SUB-Q SCH (11:17)
--- NOTE | 2016-08-23 16:32 | Progress Note ---
Assessment and Plan Assessment and plan: 1. Sepsis/PNA Cough associated with tachycardia, tachypnea, leukocytosis; chest x-ray with RLL infiltrate Blood and sputum cultures obtained, (blood cultures negative); lactic acid mildly elevated, but trended down Continue antibiotics 2. Acute respiratory failure Secondary to pneumonia superimposed on sarcoidosis with fibrotic lung changes Supplemental oxygen, pulmonary toileting, NIPPV as needed Sats in 60-70s while walking; CM consulted for home O2 Obtain ECHO Referal for outpatient pulmonary f/u 3. Sarcoidosis On chronic prednisone which she ran out ? 2 weeks (or more) prior to admission Had no recent follow-up Corticosteroids resumed Referal for pulmonary outpatient follow-up as she wants to establish care (also may need sleep study) 4. H/o Afib On amiodarone for rate control; was started 6-7 years and had no recent follow- up Refused anticoagulation; was only on antiplatelet therapy Currently on sinus rhythm Monitor on telemetry Amiodarone discontinued given her age, bilateral lung fibrotic changes and sarcoidosis Continue metoprolol for rate control if needed along with aspirin 5. DM Uncontrolled, BS almost 400 on admission Insulin 70/30 resumed and dose further increased as BS elevated and hemoglobin A1c 12 Continue Accu-Cheks and SSI to assess insulin requirements and make further adjustments 6. Hyperlipidemia Lipid profile checked and total cholesterol 200, LDL 126 Started on statin 7. HTN On metoprolol, lisinopril, HCTZ BP not at goal, so lisinopril dose increased yesterday Continue to monitor and adjust regimen 8. Hypokalemia Resolved 9. Obesity Counseled regarding importance of losing weight and lifestyle changes 10. DVT prophylaxis Lovenox 11. Discharge planning issues Awaiting approval for home oxygen History Interval history: No improvement, significant dyspnea with minimal activity, sats dropping in 70s only walking a few steps in her room Hospitalist Physical - Constitutional Vitals: Temp Pulse Resp BP Pulse Ox 97.6 F 99 H 20 128/84 97 08/23/16 15:51 08/23/16 15:51 08/23/16 15:51 08/23/16 15:51 08/23/16 15:51 General appearance: Present: no acute distress, obese - EENT Eyes: Present: PERRL, EOM intact. Absent: scleral icterus, conjunctival injection - Neck Neck: Present: supple, normal ROM. Absent: masses or JVD - Respiratory Respiratory effort: normal (at rest, labored with minimal activity) Respiratory: bilateral: diminished, rhonchi, negative: wheezing - Cardiovascular Rhythm: regular Heart Sounds: Present: S1 & S2. Absent: systolic murmur - Extremities Extremities: no ischemia - Abdominal General gastrointestinal: soft, non-tender, non-distended, normal bowel sounds - Integumentary Integumentary: Present: warm, dry. Absent: jaundice, rash - Psychiatric Psychiatric: cooperative - Neurologic Neurologic: CNII-XII intact, no focal deficits Results - Labs CBC & Chem 7: 08/21/16 08:27 08/20/16 07:20 Labs: Laboratory Last Values WBC 18.4 K/mm3 (4.5-11.0) H 08/21/16 08:27 RBC 5.19 M/mm3 (3.65-5.03) H 08/21/16 08:27 Hgb 13.4 gm/dl (10.1-14.3) 08/21/16 08:27 Hct 42.7 % (30.3-42.9) 08/21/16 08:27 MCV 82 fl (79-97) 08/21/16 08:27 MCH 26 pg (28-32) L 08/21/16 08:27 MCHC 31 % (30-34) 08/21/16 08:27 RDW 15.8 % (13.2-15.2) H 08/21/16 08:27 Plt Count 225 K/mm3 (140-440) 08/21/16 08:27 Lymph % (Auto) 13.3 % (13.4-35.0) L 08/21/16 08:27 [place] % (Auto) 5.0 % (0.0-7.3) 08/21/16 08:27 Eos % (Auto) 0.0 % (0.0-4.3) 08/21/16 08:27 Baso % (Auto) 0.5 % (0.0-1.8) 08/21/16 08:27 Lymph # 2.4 K/mm3 (1.2-5.4) 08/21/16 08:27 [place] # 0.9 K/mm3 (0.0-0.8) H 08/21/16 08:27 Eos # 0.0 K/mm3 (0.0-0.4) 08/21/16 08:27 Baso # 0.1 K/mm3 (0.0-0.1) 08/21/16 08:27 Add Manual Diff Complete 08/20/16 07:20 Total Counted 100 08/20/16 07:20 Seg Neutrophils % 81.2 % (40.0-70.0) H 08/21/16 08:27 Seg Neuts % (Manual) 83.0 % (40.0-70.0) H 08/20/16 07:20 Band Neutrophils % 3.0 % 08/20/16 07:20 Lymphocytes % (Manual) 7.0 % (13.4-35.0) L 08/20/16 07:20 Reactive Lymphs % (Man) 0 % 08/20/16 07:20 Monocytes % (Manual) 7.0 % (0.0-7.3) 08/20/16 07:20 Eosinophils % (Manual) 0 % (0.0-4.3) 08/20/16 07:20 Basophils % (Manual) 0 % (0.0-1.8) 08/20/16 07:20 Metamyelocytes % 0 % 08/20/16 07:20 Myelocytes % 0 % 08/20/16 07:20 Promyelocytes % 0 % 08/20/16 07:20 Blast Cells % 0 % 08/20/16 07:20 Nucleated RBC % Not Reportable 08/20/16 07:20 Seg Neutrophils # 15.0 K/mm3 (1.8-7.7) H 08/21/16 08:27 Seg Neutrophils # Man 18.7 K/mm3 (1.8-7.7) H 08/20/16 07:20 Band Neutrophils # 0.7 K/mm3 08/20/16 07:20 Lymphocytes # (Manual) 1.6 K/mm3 (1.2-5.4) 08/20/16 07:20 Abs React Lymphs (Man) 0.0 K/mm3 08/20/16 07:20 Monocytes # (Manual) 1.6 K/mm3 (0.0-0.8) H 08/20/16 07:20 Eosinophils # (Manual) 0.0 K/mm3 (0.0-0.4) 08/20/16 07:20 Basophils # (Manual) 0.0 K/mm3 (0.0-0.1) 08/20/16 07:20 Metamyelocytes # 0.0 K/mm3 08/20/16 07:20 Myelocytes # 0.0 K/mm3 08/20/16 07:20 Promyelocytes # 0.0 K/mm3 08/20/16 07:20 Blast Cells # 0.0 K/mm3 08/20/16 07:20 WBC Morphology Not Reportable 08/20/16 07:20 Hypersegmented Neuts Not Reportable 08/20/16 07:20 Hyposegmented Neuts Not Reportable 08/20/16 07:20 Hypogranular Neuts Not Reportable 08/20/16 07:20 Smudge Cells Not Reportable 08/20/16 07:20 Toxic Granulation Not Reportable 08/20/16 07:20 Toxic Vacuolation Not Reportable 08/20/16 07:20 Dohle Bodies Not Reportable 08/20/16 07:20 Pelger-Huet Anomaly Not Reportable 08/20/16 07:20 Amanda Rods Not Reportable 08/20/16 07:20 Platelet Estimate Appears normal 08/20/16 07:20 Clumped Platelets Not Reportable 08/20/16 07:20 Plt Clumps, EDTA Not Reportable 08/20/16 07:20 Large Platelets Not Reportable 08/20/16 07:20 Giant Platelets Not Reportable 08/20/16 07:20 Platelet Satelliting Not Reportable 08/20/16 07:20 Plt Morphology Comment Not Reportable 08/20/16 07:20 RBC Morphology Not Reportable 08/20/16 07:20 Dimorphic RBCs Not Reportable 08/20/16 07:20 Polychromasia 1+ 08/20/16 07:20 Hypochromasia Not Reportable 08/20/16 07:20 Poikilocytosis 1+ 08/20/16 07:20 Anisocytosis 1+ 08/20/16 07:20 Microcytosis Not Reportable 08/20/16 07:20 Macrocytosis Not Reportable 08/20/16 07:20 Spherocytes Not Reportable 08/20/16 07:20 Pappenheimer Bodies Not Reportable 08/20/16 07:20 Sickle Cells Not Reportable 08/20/16 07:20 Target Cells Not Reportable 08/20/16 07:20 Tear Drop Cells Rare 08/20/16 07:20 Ovalocytes 1+ 08/20/16 07:20 Helmet Cells Not Reportable 08/20/16 07:20 Wang-[place] Bodies Not Reportable 08/20/16 07:20 [place] Rings Not Reportable 08/20/16 07:20 Mara Cells Not Reportable 08/20/16 07:20 Bite Cells Not Reportable 08/20/16 07:20 Crenated Cell Not Reportable 08/20/16 07:20 Elliptocytes Not Reportable 08/20/16 07:20 Acanthocytes (Spur) Not Reportable 08/20/16 07:20 Rouleaux Not Reportable 08/20/16 07:20 Hemoglobin C Crystals Not Reportable 08/20/16 07:20 Schistocytes Not Reportable 08/20/16 07:20 Malaria parasites Not Reportable 08/20/16 07:20 Adriano Bodies Not Reportable 08/20/16 07:20 Hem Pathologist Commnt No 08/20/16 07:20 PT 13.7 Sec. (12.2-14.9) 08/19/16 09:00 INR 1.06 (0.87-1.13) 08/19/16 09:00 APTT 26.8 Sec. (24.2-36.6) 08/19/16 09:00 D-Dimer 489.79 ng/mlDDU (0-234) H 08/19/16 09:00 POC ABG pH 7.410 (7.35-7.45) 08/19/16 10:28 POC ABG pCO2 33.8 (35-45) L 08/19/16 10:28 POC ABG pO2 61 (80-105) L 08/19/16 10:28 POC ABG HCO3 21.4 08/19/16 10:28 POC ABG Total CO2 22 08/19/16 10:28 POC ABG O2 Sat 91 08/19/16 10:28 POC ABG Base Excess -3 08/19/16 10:28 FiO2 40 % 08/19/16 10:28 Sodium 138 mmol/L (137-145) 08/20/16 07:20 Potassium 4.5 mmol/L (3.6-5.0) D 08/20/16 07:20 Chloride 97.7 mmol/L (98-107) L 08/20/16 07:20 Carbon Dioxide 25 mmol/L (22-30) 08/20/16 07:20 Anion Gap 20 mmol/L 08/20/16 07:20 BUN 10 mg/dL (7-17) 08/20/16 07:20 Creatinine 0.6 mg/dL (0.7-1.2) L 08/20/16 07:20 Estimated GFR > 60 ml/min 08/20/16 07:20 BUN/Creatinine Ratio 16.66 % 08/20/16 07:20 Glucose 284 mg/dL (65-100) H 08/20/16 07:20 POC Glucose 243 (70-105) H 08/23/16 07:21 Hemoglobin A1c 12.4 % (4-6) H 08/19/16 12:09 Lactic Acid 2.2 mmol/L (0.7-2.0) H* 08/19/16 15:19 Calcium 8.6 mg/dL (8.4-10.2) 08/20/16 07:20 Total Bilirubin 0.5 mg/dL (0.1-1.2) 08/19/16 09:00 AST 12 units/L (5-40) 08/19/16 09:00 ALT 11 units/L (7-56) 08/19/16 09:00 Alkaline Phosphatase 69 units/L (35-129) 08/19/16 09:00 Troponin T < 0.010 ng/mL (0.00-0.029) 08/19/16 09:00 NT-Pro-B Natriuret Pep 58.23 pg/mL (0-450) 08/19/16 09:00 Total Protein 7.2 g/dL (6.3-8.2) 08/19/16 09:00 Albumin 3.3 g/dL (3.9-5) L 08/19/16 09:00 Albumin/Globulin Ratio 0.8 % 08/19/16 09:00 Triglycerides 97 mg/dL (2-149) 08/19/16 12:09 Cholesterol 200 mg/dL (50-199) H 08/19/16 12:09 LDL Cholesterol Direct 126 mg/dL (50-130) 08/19/16 12:09 HDL Cholesterol 55 mg/dL (40-59) 08/19/16 12:09 Cholesterol/HDL Ratio 3.63 % 08/19/16 12:09 HCG, Qual Negative (Negative) 08/19/16 09:00 Urine Color Straw (Yellow) 08/19/16 18:36 Urine Turbidity Clear (Clear) 08/19/16 18:36 Urine pH 5.0 (5.0-7.0) 08/19/16 18:36 Ur Specific [place] 1.023 (1.003-1.030) 08/19/16 18:36 Urine Protein 100 mg/dl mg/dL (Negative) 08/19/16 18:36 Urine Glucose (UA) >=500 mg/dL (Negative) 08/19/16 18:36 Urine Ketones Neg mg/dL (Negative) 08/19/16 18:36 Urine Blood Neg (Negative) 08/19/16 18:36 Urine Nitrite Neg (Negative) 08/19/16 18:36 Urine Bilirubin Neg (Negative) 08/19/16 18:36 Urine Urobilinogen < 2.0 mg/dL (<2.0) 08/19/16 18:36 Ur Leukocyte Esterase Neg (Negative) 08/19/16 18:36 Urine WBC (Auto) 1.0 /HPF (0.0-6.0) 08/19/16 18:36 Urine RBC (Auto) 1.0 /HPF (0.0-6.0) 08/19/16 18:36 U Epithel Cells (Auto) 1.0 /HPF (0-13.0) 08/19/16 18:36 Ketones 5.9 mg/dL (0.2-2.8) H 08/19/16 09:00
[2016-08-23] MEDS: BENADRYL PO PRN (22:40)
[2016-08-24] MEDS: DUONEB 0.5 MG-3 MG/3 ML SOLN IH SCH ×4 (02:21→13:56)
[2016-08-24] MEDS: NOVOLOG SUB-Q SCH (10:08)
[2016-08-24] MEDS: DELTASONE PO SCH (10:16)
[2016-08-24] MEDS: BABY ASPIRIN PO SCH (10:16)
[2016-08-24] MEDS: LOPRESSOR PO SCH (10:17)
[2016-08-24] MEDS: LEVAQUIN PO SCH (10:17)
[2016-08-24] MEDS: HCTZ PO SCH (10:17)
[2016-08-24] MEDS: LOVENOX SUB-Q SCH (10:18)
[2016-08-24] MEDS: ZESTRIL PO SCH (10:19)
--- NOTE | 2016-08-24 15:51 | Discharge Summary ---
Providers - Providers Date of Admission: 08/19/16 11:56 Date of discharge: 08/24/16 Attending physician: AMERICA BRENNAN 08/23/16 09:05 Consult to Case Management [CONS] Urgent Services Needed at Discharge: Other Notified:: no Additional Physician Instructions: home O2 Primary care physician: INKER MACHINE Hospitalization Reason for admission: sob Condition: Serious Pertinent studies: Chest x-ray Echocardiogram Hospital course: Patient is a 36 years old obese -[place] female with past medical history significant for sarcoidosis, atrial fibrillation on amiodarone for 6-7 years, HTN, DM, who presents to the ER complaining of cough, shortness of breath and chest tightness; her symptoms started approximately 2 weeks ago after she ran out of all her medications (lost [employer] insurance) and since then worsened progressively. She was restarted on her medications and regimen has been adjusted. It was found that she was in normal sinus rhythm; amiodarone was discontinued given fibrotic lung changes; advised to never restart it; was given beta lei for rate control if needed. Diagnosed with pneumonia for which she was started on antibiotics. She remained persistently severely hypoxemic, so she will be discharged on home oxygen and will have a follow-up with pulmonary. 1. Sepsis/PNA Cough associated with tachycardia, tachypnea, leukocytosis; chest x-ray with RLL infiltrate Blood and sputum cultures obtained, (blood cultures negative); lactic acid mildly elevated, but trended down Continue antibiotics 2. Acute respiratory failure Secondary to pneumonia superimposed on sarcoidosis with fibrotic lung changes Supplemental oxygen, pulmonary toileting, NIPPV as needed Sats in 60-70s while walking; CM consulted for home O2 ECHO obtained, results pending Referal for outpatient pulmonary f/u 3. Sarcoidosis On chronic prednisone which she ran out ? 2 weeks (or more) prior to admission Had no recent follow-up Corticosteroids resumed Referal for pulmonary outpatient follow-up as she wants to establish care (also may need sleep study) 4. H/o Afib On amiodarone for rate control; was started 6-7 years and had no recent follow- up Refused anticoagulation; was only on antiplatelet therapy Currently on sinus rhythm Monitor on telemetry Amiodarone discontinued given her age, bilateral lung fibrotic changes and sarcoidosis Continue metoprolol for rate control if needed along with aspirin 5. DM Uncontrolled, BS almost 400 on admission Insulin 70/30 resumed and dose further increased as BS elevated and hemoglobin A1c 12 Accu-Cheks and SSI to assess insulin requirements and make further adjustments 6. Hyperlipidemia Lipid profile checked and total cholesterol 200, LDL 126 Started on statin 7. HTN On metoprolol, lisinopril, HCTZ BP not at goal, so lisinopril dose increased yesterday Continue to monitor and adjust regimen 8. Hypokalemia Resolved 9. Obesity Counseled regarding importance of losing weight and lifestyle changes Disposition: DISCHARGED TO HOME OR SELFCARE Time spent for discharge: 40 min Core Measure Documentation - Palliative Care Palliative Care/ Comfort Measures: Not Applicable - Core Measures Any of the following diagnoses?: none Exam - Physical Exam Narrative exam: Patient seen and examined: - Constitutional Vitals: Temp Pulse Resp BP Pulse Ox 98.4 F 96 H 20 130/89 97 08/24/16 12:13 08/24/16 14:06 08/24/16 14:06 08/24/16 12:13 08/24/16 12:13 General appearance: Present: no acute distress, obese - EENT Eyes: Present: PERRL, EOM intact. Absent: scleral icterus, conjunctival injection - Neck Neck: Present: supple, normal ROM. Absent: masses or JVD - Respiratory Respiratory effort: normal Respiratory: bilateral: diminished, rhonchi, negative: wheezing - Cardiovascular Rhythm: regular Heart Sounds: Present: S1 & S2. Absent: systolic murmur - Extremities Extremities: no ischemia - Abdominal General gastrointestinal: Present: soft, non-tender, non-distended, normal bowel sounds - Integumentary Integumentary: Present: warm, dry. Absent: jaundice, rash - Psychiatric Psychiatric: cooperative - Neurologic Neurologic: CNII-XII intact, no focal deficits Plan Activity: advance as tolerated, no driving until cleared by PCP Diet: low cholesterol, low salt Follow up with: [facility] [Outside] - 09/17/16 9:30 am RANDA DODGE MD [Primary Care Provider] - 3-5 Days EMELIA HAMLIN MD [Staff Physician] - 7 Days Forms: AMA Form Prescriptions: AtorvaSTATin [Lipitor] 10 mg PO QHS #30 tablet Aspirin 162 mg PO DAILY #30 tab.chew predniSONE [Deltasone] 20 mg PO BID #60 tablet Hydrochlorothiazide [HCTZ] 12.5 mg PO QDAY #30 capsule Levofloxacin [Levaquin TAB] 750 mg PO Q24HR #5 tablet Metoprolol Tartrate [Lopressor] 50 mg PO BID #60 tablet Insulin NPH/Regular [NovoLIN 70/30] 60 unit SUB-Q BIDDIAB #2 units ALBUTEROL Inhaler [ProAir HFA Inhaler] 2 puff IH QID PRN #1 inhalation PRN Reason: Shortness Of Breath ALBUTEROL NEB's [Proventil 0.083% NEBS] 2.5 mg IH QID PRN #1 box PRN Reason: Wheezing Lisinopril [Zestril TAB] 20 mg PO QDAY #30
[2016-08-24 16:01] VITALS: BP 128/80
--- NOTE | 2016-08-24 18:31 | Echocardiography Report ---
Transthoracic Echocardiogram Indication: SOB BP: 128/69 Findings Left Ventricle: The left ventricular chamber size is normal. Mild concentric left ventricular hypertrophy is observed. Global left ventricular wall motion and contractility are within normal limits. Global left ventricular systolic function is normal. The estimated ejection fraction is 55-60%. Abnormal left ventricular diastolic filling is observed, consistent with impaired relaxation. Left Atrium: The left atrial chamber size is normal. Right Ventricle: The right ventricular cavity size is normal. The right ventricular global systolic function is normal. Right Atrium: The right atrial cavity size is normal. The interatrial septum appears normal. Aortic Valve: The aortic valve is trileaflet. The aortic valve leaflets are mildly thickened. Systolic excursion of the aortic valve is normal. There is trace of aortic regurgitation. There is no evidence of aortic stenosis. Mitral Valve: The mitral valve leaflets appear myxomatous. The mitral valve leaflets are mildly thickened. There is mild mitral regurgitation. There is no evidence of mitral stenosis. Tricuspid Valve: The tricuspid valve leaflets are normal. There is mild to moderate tricuspid regurgitation. The right ventricular systolic pressure is calculated at 40 mmHg. There is evidence of mild pulmonary hypertension. There is no tricuspid stenosis. Pulmonic Valve: The pulmonic valve appears normal. There is trace pulmonic regurgitation. There is no pulmonic stenosis. Pericardium: There is no pericardial effusion. Aorta: There is no dilatation of the ascending aorta. There is no dilatation of the aortic arch. There is no dilatation of the descending thoracic aorta. There is no dilatation of the aortic root. Venous: The inferior vena cava appears normal in size. Measurements Chambers MM Name Value Normal Range Ao root diameter (MM) 2.8 cm (2 - 3.7) LA dimension (AP) MM 3.4 cm (1.9 - 4) LA:Ao ratio (MM) 1.21 ratio - AV cusp separation (MM) 1.2 cm (1.5 - 2.6) Chambers 2D Name Value Normal Range RVIDd (AP) 2D 2.68 cm (0.9 - 2.6) IVSd (2D) 1.02 cm (0.6 - 1.1) LVPWd (2D) 1.03 cm (0.6 - 1.1) IVS:LVPW ratio (2D) 0.99 ratio - LVIDd (2D) 4.19 cm (3.7 - 5.6) LVIDs (2D) 2.47 cm (2 - 3.8) LV FS (Teichholz) (2D) 41.1 % - LV FS (cube) (2D) 41.1 % - EF Teichholz (2D) 72.2 % - LA dimension (AP) 2D 3.4 cm (1.9 - 4) Volumes/Mass Name Value Normal Range LA ESV SP 4CH (MOD) 36 ml - LA ESV SP 2CH (MOD) 32 ml - LA ESV BP (MOD) 35 ml - LA ESV BP (MOD) index 17.2 ml/m2 - Diastolic/Systolic Function Name Value Normal Range MV E-wave Vmax 0.6 m/sec - MV deceleration time 232 msec - MV A-wave Vmax 0.71 m/sec - MV E:A ratio 0.8 ratio - LV septal e' Vmax 0.07 m/sec - LV lateral e' Vmax 0.09 m/sec - LV E:e' septal ratio 8.1 ratio - LV E:e' lateral ratio 6.6 ratio - Aortic Valve Name Value Normal Range AV VTI 27 cm - AV mean gradient 5 mmHg - LVOT diameter 2 cm - LVOT VTI 20.5 cm - LVOT mean gradient 4 mmHg - SV LVOT 64 ml - ANA MARIA (continuity VTI) 2.38 cm2 - Mitral Valve Name Value Normal Range MV PHT 42 msec - MR Vmax 3.7 m/sec - MVA (PHT) 5.24 cm2 - Tricuspid Valve Name Value Normal Range TR Vmax 3.04 m/sec - TR peak gradient 37 mmHg - RAP 3 mmHg - RVSP 40 mmHg - Pulmonic Valve/Qp:Qs Name Value Normal Range PV Vmax 0.98 m/sec - PV peak gradient 4 mmHg - CT end-diastolic Vmax 1.4 m/sec - PV acceleration time 106 msec -
== END 2016-08-24 17:28 | disposition home or self-care (01) | DRG 871 ==
LOC: ED 07:56 → 4A 11:56
PROVIDERS: ADMIT Internal Medicine; ATTEND Internal Medicine
DX: A41.9 Sepsis, unspecified organism (principal); J18.9 Pneumonia, unspecified organism; J96.00 Acute respiratory failure, unspecified whether with hypoxia or hypercapnia; Z68.41 Body mass index [BMI] 40.0-44.9, adult; D86.9 Sarcoidosis, unspecified; E11.9 Type 2 diabetes mellitus without complications; I10 Essential (primary) hypertension; E66.9 Obesity, unspecified; E78.5 Hyperlipidemia, unspecified; I48.91 Unspecified atrial fibrillation; E87.6 Hypokalemia; Z91.14 Patient's other noncompliance with medication regimen; Z87.891 Personal history of nicotine dependence; Z83.3 Family history of diabetes mellitus; Z82.49 Family history of ischemic heart disease and other diseases of the circulatory system; Z84.89 Family history of other specified conditions
CPT/HCPCS: 36415; 71010; 80048; 80053; 80061; 81001; 82010; 82140; 82803; 82962; 83036; 83880; 84484; 84703; 85007; 85025; 85379; 85610; 85730; 87040; 87400; 93005; 93010; 93306; 94640; 94760; 96361; 96365; 96367; 96375; A9270-GY; J0696; J1650; J1815; J1956; J2930; J3475; J7030; J7512

== ENCOUNTER 2016-12-22 10:02 | Emergency (ER) | payer MEDICAID ==
[2016-12-22 10:23] VITALS: BP 140/94
[2016-12-22 10:41] LABS: Basophils % (Auto) 0.9 % (0.0-1.8); Eosinophils % (Auto) 2.5 % (0.0-4.3); Hematocrit 37.6 % (30.3-42.9); Hemoglobin 11.7 gm/dl (10.1-14.3); Mean Corpuscular HGB Conc 31 % (30-34); Mean Corpuscular Hemoglobin 26 pg (28-32); Mean Corpuscular Volume 84 fl (79-97); Platelet Count 265 K/mm3 (140-440); Red Blood Count 4.46 M/mm3 (3.65-5.03); Red Cell Distribution Width 15.5 % (13.2-15.2)
[2016-12-22 11:04] LABS: Anion Gap 16 mmol/L; BUN/Creatinine Ratio 8.33; Blood Urea Nitrogen 5 mg/dL (7-17); Calcium 8.6 mg/dL (8.4-10.2); Carbon Dioxide 31 mmol/L (22-30); Chloride 92.5 mmol/L (98-107); Glucose 499 mg/dL (65-100); Potassium 3.9 mmol/L (3.6-5.0); Sodium 136 mmol/L (137-145)
--- NOTE | 2016-12-22 11:33 | XRay Report ---
CHEST TWO VIEWS: 12/22/16 10:02:00 CLINICAL: Shortness of breath. Cough with brown mucus. History of sarcoidosis. COMPARISON: 08/19/16 FINDINGS: Extensive bilateral reticular interstitial as well as alveolar lung opacities are not significantly changed compared to the prior exam. No pulmonary consolidation. Normal heart and pulmonary vessels. No lymphadenopathy.The bones and soft tissues are normal. IMPRESSION: Chronic pulmonary sarcoidosis, not significantly changed compared to the prior exam.
== END 2016-12-22 10:21 | disposition left against medical advice (07) ==
LOC: ED 10:02
DX: R07.9 Chest pain, unspecified (principal); Z53.21 Procedure and treatment not carried out due to patient leaving prior to being seen by health care provider
CPT/HCPCS: 36415; 71020; 80048; 84484; 85025; 87040; 93005; 93010

== ENCOUNTER 2017-08-20 01:45 | Inpatient (IN) | payer MEDICAID, OTHER ==
[2017-08-20 03:19] LABS: Basophils % (Auto) 0.3 % (0.0-1.8); Eosinophils # (Auto) 0.1 K/mm3 (0.0-0.4); Eosinophils % (Auto) 0.5 % (0.0-4.3); Hematocrit 38.4 % (30.3-42.9); Hemoglobin 12.4 gm/dl (10.1-14.3); Lymphocytes # (Auto) 1.4 K/mm3 (1.2-5.4); Lymphocytes % (Auto) 12.6 % (13.4-35.0); Mean Corpuscular HGB Conc 32 % (30-34); Mean Corpuscular Hemoglobin 27 pg (28-32); Mean Corpuscular Volume 84 fl (79-97); Monocytes % (Auto) 8.7 % (0.0-7.3); Platelet Count 196 K/mm3 (140-440); Red Blood Count 4.55 M/mm3 (3.65-5.03); Red Cell Distribution Width 16.2 % (13.2-15.2)
[2017-08-20 03:42] LABS: BUN/Creatinine Ratio 26; Blood Urea Nitrogen 18 mg/dL (7-17); Calcium 9.3 mg/dL (8.4-10.2); Hemolysis Index 7
--- NOTE | 2017-08-20 03:57 | XRay Report ---
FINAL REPORT PROCEDURE: XR CHEST ROUTINE 2V TECHNIQUE: PA and lateral chest radiographs were obtained. CPT 77069 HISTORY: Shortness of breath. Right sided chest pain with cough and sore throat. Hx. of sarcoidosis. COMPARISON: 07/16/2016 FINDINGS: Heart: Normal. Mediastinum/Vessels: Normal. Lungs/Pleural space: There are few scattered infiltrates in both lungs. Underlying interstitial lung disease.. Bony thorax: No acute osseous abnormality. Other: IMPRESSION: Scattered infiltrates are identified in both lungs. Underlying interstitial lung disease is noted..
--- NOTE | 2017-08-20 04:50 | Emergency Department Report ---
ED General Adult HPI - General Chief complaint: Dyspnea/Respdistress Stated complaint: WHEEZING; SOB Time Seen by Provider: 08/20/17 04:50 Source: patient Mode of arrival: Ambulatory Limitations: No Limitations - History of Present Illness Initial comments: Patient is a 37-year-old Afro-Stateless female with a past medical history of sarcoidosis who is presenting to the emergency department with cough congestion sore throat and right-sided chest pain for approximately 2 days. Patient states that the cough is productive of yellow sputum. Patient has had subjective fevers as well. Patient states that she has a very deep cough and pain in the right chest when she coughs only. Patient has a history of sarcoidosis and its upper respiratory infections very easily. Patient states the pain in the chest is 10 out of 10. Patient's also states that she has nausea vomiting as well. Patient denies diarrhea headache syncope pleuritic pain at this time. Onset/Timin -: Gradual, days(s) Worsens with: none Associated Symptoms: chest pain, cough, diaphoresis, fever/chills, loss of appetite, malaise, nausea/vomiting, shortness of breath. denies: confusion, rash Treatments Prior to Arrival: none - Related Data Home Medications Medication Instructions Recorded Confirmed Last Taken ALBUTEROL NEB's [Proventil 0.083% 2.5 mg IH QID PRN 12/22/16 12/22/16 Unknown NEBS] Aspirin 81 mg PO DAILY 12/22/16 12/22/16 12/21/16 Previous Rx's Medication Instructions Recorded Last Taken Type ALBUTEROL Inhaler [ProAir HFA 2 puff IH QID PRN #1 inhalation 08/24/16 Unknown Rx Inhaler] Hydrochlorothiazide [HCTZ] 12.5 mg PO QDAY #30 capsule 08/24/16 12/21/16 Rx Insulin NPH/Regular [NovoLIN 70/30] 60 unit SUB-Q BIDDIAB #2 units 08/24/1605/01 Rx Metoprolol Tartrate [Lopressor] 50 mg PO BID #60 tablet 08/24/16 12/21/16 Rx Benzonatate [Tessalon Perles] 100 mg PO Q8HR PRN #20 capsule 12/25/16 Unknown Rx Cyclobenzaprine [Flexeril 10 MG 5 mg PO TID PRN #20 tablet 12/25/16 Unknown Rx TAB] HYDROcodone/APAP 5-325 [Christopher 1 each PO Q6H PRN #10 tablet 12/25/16 Unknown Rx 5-325 mg TAB] Lisinopril [Zestril TAB] 40 mg PO QDAY #30 tablet 12/25/16 Unknown Rx Allergies Allergy/AdvReac Type Severity Reaction Status Date / Time No Known Allergies Allergy Verified 12/22/16 10:19 ED Review of Systems ROS: Stated complaint: WHEEZING; SOB Other details as noted in HPI Comment: All other systems reviewed and negative ED Past Medical Hx - Past Medical History Hx Hypertension: Yes Hx CVA: No Hx Heart Attack/AMI: No Hx Congestive Heart Failure: No Hx Diabetes: Yes Hx Deep Vein Thrombosis: No Hx Pulmonary Embolism: No Hx Asthma: No Hx COPD: No Hx Tuberculosis: No Hx HIV: No Additional medical history: Sarcoidosis. Afib - Surgical History Hx Coronary Stent: No Hx Pacemaker: No Additional Surgical History: x3 - Social History Smoking Status: Never Smoker Substance Use Type: None - Medications Home Medications: Home Medications Medication Instructions Recorded Confirmed Last Taken Type ALBUTEROL Inhaler [ProAir HFA 2 puff IH QID PRN #1 inhalation 08/24/16 12/22/16 Unknown Rx Inhaler] Hydrochlorothiazide [HCTZ] 12.5 mg PO QDAY #30 capsule 08/24/16 12/22/16 Rx Insulin NPH/Regular [NovoLIN 70/30] 60 unit SUB-Q BIDDIAB #2 units 08/24/1605/3112/21/16 Rx Metoprolol Tartrate [Lopressor] 50 mg PO BID #60 tablet 08/24/16 12/22/16 Rx ALBUTEROL NEB's [Proventil 0.083% 2.5 mg IH QID PRN 12/22/16 12/22/16 Unknown History NEBS] Aspirin 81 mg PO DAILY 12/22/16 12/22/16 12/21/16 History Benzonatate [Tessalon Perles] 100 mg PO Q8HR PRN #20 capsule 12/25/16 Unknown Rx Cyclobenzaprine [Flexeril 10 MG 5 mg PO TID PRN #20 tablet 12/25/16 Unknown Rx TAB] HYDROcodone/APAP 5-325 [Christopher 1 each PO Q6H PRN #10 tablet 12/25/16 Unknown Rx 5-325 mg TAB] Lisinopril [Zestril TAB] 40 mg PO QDAY #30 tablet 12/25/16 Unknown Rx ED Physical Exam - General Limitations: No Limitations General appearance: alert, in no apparent distress - Head Head exam: Present: atraumatic, normocephalic - Eye Eye exam: Present: normal appearance - ENT ENT exam: Present: mucous membranes moist - Neck Neck exam: Present: normal inspection - Respiratory Respiratory exam: Present: normal lung sounds bilaterally, rhonchi (right posterior lung dunn). Absent: respiratory distress, wheezes, rales, chest wall tenderness, accessory muscle use - Cardiovascular Cardiovascular Exam: Present: normal rhythm, tachycardia. Absent: systolic murmur, diastolic murmur, rubs, gallop - GI/Abdominal GI/Abdominal exam: Present: soft, normal bowel sounds. Absent: distended, tenderness, guarding, rebound - Rectal Rectal exam: Present: deferred - Extremities Exam Extremities exam: Present: normal inspection - Back Exam Back exam: Present: normal inspection - Neurological Exam Neurological exam: Present: alert, oriented X3 - Psychiatric Psychiatric exam: Present: normal affect, normal mood - Skin Skin exam: Present: warm, dry, intact, normal color. Absent: rash ED Course Vital Signs 08/20/17 08/20/17 02:35 04:57 Temperature 98.3 F 99.4 F Pulse Rate 107 H 131 H Respiratory 24 24 Rate Blood Pressure 154/89 Blood Pressure 141/94 [Right] O2 Sat by Pulse 94 98 Oximetry ED Medical Decision Making - Lab Data Result diagrams: 08/20/17 03:06 08/20/17 03:06 Lab Results 08/20/17 08/20/17 08/20/17 Range/Units 03:06 03:06 03:06 WBC 11.3 H (4.5-11.0) K/mm3 RBC 4.55 (3.65-5.03) M/mm3 Hgb 12.4 (10.1-14.3) gm/dl Hct 38.4 (30.3-42.9) % MCV 84 (79-97) fl MCH 27 L (28-32) pg MCHC 32 (30-34) % RDW 16.2 H (13.2-15.2) % Plt Count 196 (140-440) K/mm3 Lymph % (Auto) 12.6 L (13.4-35.0) % [place] % (Auto) 8.7 H (0.0-7.3) % Eos % (Auto) 0.5 (0.0-4.3) % Baso % (Auto) 0.3 (0.0-1.8) % Lymph # 1.4 (1.2-5.4) K/mm3 [place] # 1.0 H (0.0-0.8) K/mm3 Eos # 0.1 (0.0-0.4) K/mm3 Baso # 0.0 (0.0-0.1) K/mm3 Seg Neutrophils % 77.9 H (40.0-70.0) % Seg Neutrophils # 8.8 H (1.8-7.7) K/mm3 Sodium 139 (137-145) mmol/L Potassium 4.2 (3.6-5.0) mmol/L Chloride 95.5 L (98-107) mmol/L Carbon Dioxide 29 (22-30) mmol/L Anion Gap 19 mmol/L BUN 18 H (7-17) mg/dL Creatinine 0.7 (0.7-1.2) mg/dL Estimated GFR > 60 ml/min BUN/Creatinine Ratio 26 % Glucose 294 H (65-100) mg/dL Calcium 9.3 (8.4-10.2) mg/dL Troponin T < 0.010 (0.00-0.029) ng/mL HCG, Qual Negative (Negative) - EKG Data -: EKG Interpreted by De EKG shows normal: axis, intervals, QRS complexes, ST-T waves Rate: tachycardia - EKG Data Interpretation: other (sinus tachycardia rate of 118) - Medical Decision Making Patient is a 37-year-old female with a past medical history of doses who is presenting with pneumonia. Patient will be started on Levaquin and will be admitted to Dr. Cordon Critical care attestation.: If time is entered above; I have spent that time in minutes in the direct care of this critically ill patient, excluding procedure time. ED Disposition Clinical Impression: Pulmonary sarcoidosis Pneumonia Qualifiers: Pneumonia type: due to unspecified organism Laterality: right Lung location: lower lobe of lung Qualified Code(s): J18.1 - Lobar pneumonia, unspecified organism Disposition: DC-09 OP ADMIT IP TO THIS HOSP Is pt being admited?: Yes Does the pt Need Aspirin: No Condition: Stable Instructions: Community-acquired Pneumonia (ED) Referrals: QUEENIE CROCKETT MD [Primary Care Provider] - 3-5 Days
[2017-08-20] MEDS ORDERED: MORPHINE IV ONE (04:52)
[2017-08-20] MEDS ORDERED: LEVAQUIN 750MG/150ML 750 MG/150 ML BAG IV ONE (04:52)
[2017-08-20] MEDS ORDERED: ZOFRAN IV ONE (04:52)
[2017-08-20] MEDS ORDERED: NACL 0.9% 1000 ML 1,000 ML IV ONE (05:00)
[2017-08-20] MEDS ORDERED: NACL 0.9% 1000 ML 1,000 ML IV SCH (06:00)
[2017-08-20] MEDS ORDERED: ATROVENT IH ONE (07:33)
[2017-08-20] MEDS ORDERED: PROVENTIL IH ONE (07:33)
[2017-08-20] MEDS ORDERED: DUONEB *Not for PRN Use IH ONE ×2 (07:48→07:49)
--- NOTE | 2017-08-20 08:03 | History and Physical Report ---
History of Present Illness Date of examination: 08/20/17 Date of admission: 08/20/17 05:32 Chief complaint: CC: Increasing SOB and wheezing for 3 days History of present illness: History of Present Illness Patient is a 37-year-old Afro-[place] female with a past medical history of sarcoidosis who is presenting to the emergency department with cough congestion sore throat and right-sided chest pain for approximately 2 days. Patient states that the cough is productive of yellow sputum. Patient has had subjective fevers as well. Patient has a history of sarcoidosis and its upper respiratory infections very easily. Patient states the pain in the chest is 10 out of 10. Patient's also states that she has nausea vomiting as well. Patient denies diarrhea headache syncope pleuritic pain at this time.Patient on Past Medical History Hypertension Diabetes Sarcoidosis. Afib Surgical History Hx Coronary Stent: No Hx Pacemaker: No Additional Surgical History: x3 Social History Smoking Status: Never Smoker Substance Use Type: None Family Hx Htn Medications Home Medications: Home Medications Medication Instructions Recorded Confirmed Last Taken Type ALBUTEROL Inhaler [ProAir HFA 2 puff IH QID PRN #1 inhalation 08/24/16 12/22/16 Unknown Rx Inhaler] Hydrochlorothiazide [HCTZ] 12.5 mg PO QDAY #30 capsule 08/24/16 12/22/16 Rx Insulin NPH/Regular [NovoLIN 70/30] 60 unit SUB-Q BIDDIAB #2 units 08/24/1605/3112/21/16 Rx Metoprolol Tartrate [Lopressor] 50 mg PO BID #60 tablet 08/24/16 12/22/16 Rx ALBUTEROL NEB's [Proventil 0.083% 2.5 mg IH QID PRN 12/22/16 12/22/16 Unknown History NEBS] Aspirin 81 mg PO DAILY 12/22/16 12/22/16 12/21/16 History Benzonatate [Tessalon Perles] 100 mg PO Q8HR PRN #20 capsule 12/25/16 Unknown Rx Cyclobenzaprine [Flexeril 10 MG 5 mg PO TID PRN #20 tablet 12/25/16 Unknown Rx TAB] HYDROcodone/APAP 5-325 [[place] 1 each PO Q6H PRN #10 tablet 12/25/16 Unknown Rx 5-325 mg TAB] Lisinopril [Zestril TAB] 40 mg PO QDAY #30 tablet 12/25/16 Unknown Rx Medications and Allergies Allergies Allergy/AdvReac Type Severity Reaction Status Date / Time No Known Allergies Allergy Verified 12/22/16 10:19 Home Medications Medication Instructions Recorded Confirmed Last Taken Type ALBUTEROL Inhaler [ProAir HFA 2 puff IH QID PRN #1 inhalation 08/24/16 08/20/17 Unknown Rx Inhaler] Insulin NPH/Regular [NovoLIN 70/30] 60 unit SUB-Q BIDDIAB #2 units 08/24/1601/3012/21/16 Rx Metoprolol Tartrate [Lopressor] 50 mg PO BID #60 tablet 08/24/16 08/20/17 Rx ALBUTEROL NEB's [Proventil 0.083% 2.5 mg IH QID PRN 12/22/16 08/20/17 Unknown History NEBS] Aspirin 81 mg PO DAILY 12/22/16 08/20/17 12/21/16 History Lisinopril [Zestril TAB] 40 mg PO QDAY #30 tablet 12/25/16 08/20/17 Unknown Rx predniSONE [Deltasone] 20 mg PO QDAY 08/20/17 08/20/17 Unknown History Active Meds: Active Medications Sodium Chloride (Nacl 0.9% 1000 Ml) 1,000 mls @ 100 mls/hr IV DIRECT GABRIEL Last Admin: 08/20/17 06:53 Dose: 100 mls/hr Exam - Physical Exam Narrative exam: Young Obese female in resp distress - Constitutional Vitals: Temp Pulse Resp BP Pulse Ox 98.9 F 113 H 15 125/77 99 08/20/17 06:02 08/20/17 06:02 08/20/17 06:02 08/20/17 06:02 08/20/17 06:02 General appearance: Present: severe distress, well-nourished - EENT Eyes: Present: PERRL ENT: hearing intact, clear oral mucosa - Neck Neck: Present: supple, normal ROM - Respiratory Respiratory effort: normal Respiratory: bilateral: diminished, rhonchi - Cardiovascular Heart rate: 90 Rhythm: regular Heart Sounds: Present: S1 & S2. Absent: rub, click - Extremities Extremities: no ischemia, pulses intact, pulses symmetrical, No edema Peripheral Pulses: within normal limits - Abdominal General gastrointestinal: Present: soft, non-tender, non-distended, normal bowel sounds Female genitourinary: Present: normal - Rectal Rectal Exam: deferred - Integumentary Integumentary: Present: clear, warm, dry - Musculoskeletal Musculoskeletal: gait normal, strength equal bilaterally - Psychiatric Psychiatric: appropriate mood/affect, intact judgment & insight - Neurologic Neurologic: CNII-XII intact, moves all extremities - Allied Health Allied health notes reviewed: nursing, case management Results - Labs CBC & Chem 7: 08/20/17 03:06 08/20/17 03:06 Labs: Laboratory Last Values WBC 11.3 K/mm3 (4.5-11.0) H 08/20/17 03:06 RBC 4.55 M/mm3 (3.65-5.03) 08/20/17 03:06 Hgb 12.4 gm/dl (10.1-14.3) 08/20/17 03:06 Hct 38.4 % (30.3-42.9) 08/20/17 03:06 MCV 84 fl (79-97) 08/20/17 03:06 MCH 27 pg (28-32) L 08/20/17 03:06 MCHC 32 % (30-34) 08/20/17 03:06 RDW 16.2 % (13.2-15.2) H 08/20/17 03:06 Plt Count 196 K/mm3 (140-440) 08/20/17 03:06 Lymph % (Auto) 12.6 % (13.4-35.0) L 08/20/17 03:06 [place] % (Auto) 8.7 % (0.0-7.3) H 08/20/17 03:06 Eos % (Auto) 0.5 % (0.0-4.3) 08/20/17 03:06 Baso % (Auto) 0.3 % (0.0-1.8) 08/20/17 03:06 Lymph # 1.4 K/mm3 (1.2-5.4) 08/20/17 03:06 [place] # 1.0 K/mm3 (0.0-0.8) H 08/20/17 03:06 Eos # 0.1 K/mm3 (0.0-0.4) 08/20/17 03:06 Baso # 0.0 K/mm3 (0.0-0.1) 08/20/17 03:06 Seg Neutrophils % 77.9 % (40.0-70.0) H 08/20/17 03:06 Seg Neutrophils # 8.8 K/mm3 (1.8-7.7) H 08/20/17 03:06 Sodium 139 mmol/L (137-145) 08/20/17 03:06 Potassium 4.2 mmol/L (3.6-5.0) 08/20/17 03:06 Chloride 95.5 mmol/L (98-107) L 08/20/17 03:06 Carbon Dioxide 29 mmol/L (22-30) 08/20/17 03:06 Anion Gap 19 mmol/L 08/20/17 03:06 BUN 18 mg/dL (7-17) H 08/20/17 03:06 Creatinine 0.7 mg/dL (0.7-1.2) 08/20/17 03:06 Estimated GFR > 60 ml/min 08/20/17 03:06 BUN/Creatinine Ratio 26 % 08/20/17 03:06 Glucose 294 mg/dL (65-100) H 08/20/17 03:06 Calcium 9.3 mg/dL (8.4-10.2) 08/20/17 03:06 Troponin T < 0.010 ng/mL (0.00-0.029) 08/20/17 03:06 HCG, Qual Negative (Negative) 08/20/17 03:06 - Imaging and Cardiology EKG: report reviewed Chest x-ray: report reviewed (Scattered infiltraates both lungs Underlying Interstitial lung disease) Assessment and Plan Advance Directives: Yes (full code) VTE prophylaxis?: Chemical Plan of care discussed with patient/family: Yes - Patient Problems (1) Acute and chronic respiratory failure Current Visit: No Status: Acute Qualifiers: Respiratory failure complication: hypoxia Qualified Code(s): J96.21 - Acute and chronic respiratory failure with hypoxia Plan to address problem: COnt Neb tx iv solumedrol and IV abx Pulmonary consulted Bipapand Intubation if necessary (2) Pulmonary sarcoidosis Current Visit: Yes Status: Chronic Plan to address problem: On Prednisone chronically Defer to Pulmonary (3) Asthma exacerbation Current Visit: No Status: Acute Qualifiers: Asthma severity: severe Plan to address problem: IV Abx IV solu medrol and Duonebs q6RTC and q3 prn (4) Bilateral pneumonia Current Visit: Yes Status: Acute Qualifiers: Lung location: unspecified part of lung Plan to address problem: IV abx for now (5) IDDM (insulin dependent diabetes mellitus) Current Visit: Yes Status: Chronic Plan to address problem: Cont Insulin and coverage Check A1c (6) HTN (hypertension) Current Visit: Yes Status: Chronic Qualifiers: Hypertension type: essential hypertension Qualified Code(s): I10 - Essential (primary) hypertension Plan to address problem: Cont Lisinopril and Metoprolol (7) DVT prophylaxis Current Visit: Yes Status: Acute Plan to address problem: On Lovenox
[2017-08-20] MEDS ORDERED: DULCOLAX PR PRN (08:04)
[2017-08-20] MEDS ORDERED: PERCOCET 5/325 PO PRN (08:04)
[2017-08-20] MEDS ORDERED: ZOFRAN IV PRN (08:04)
[2017-08-20] MEDS ORDERED: TYLENOL PO PRN (08:04)
[2017-08-20] MEDS ORDERED: MILK OF MAGNESIA PO PRN (08:04)
[2017-08-20] MEDS ORDERED: DUONEB *Not for PRN Use IH (08:09)
[2017-08-20] MEDS: DUONEB *Not for PRN Use IH SCH ×3 (08:15→21:24)
[2017-08-20] MEDS ORDERED: HEPARIN ONE (09:13)
[2017-08-20] MEDS ORDERED: PEPCID ONE (09:13)
[2017-08-20] MEDS ORDERED: MORPHINE ONE (09:14)
[2017-08-20] MEDS ORDERED: ZOFRAN ONE (09:15)
[2017-08-20] MEDS: PEPCID PO SCH ×2 (09:40→21:57)
[2017-08-20] MEDS: HEPARIN SUB-Q SCH ×2 (09:40→22:00)
[2017-08-20] MEDS: MORPHINE IV PRN ×3 (09:40→19:57)
[2017-08-20] MEDS ORDERED: PROAIR IH PRN (11:21)
[2017-08-20] MEDS ORDERED: PROVENTIL IH PRN (11:46)
[2017-08-20] MEDS: LEVAQUIN 750MG/150ML 750 MG/150 ML BAG IV SCH (12:25)
[2017-08-20] MEDS: ZESTRIL PO SCH (13:55)
[2017-08-20] MEDS: LOPRESSOR PO SCH ×2 (13:56→21:59)
[2017-08-20] MEDS: BROVANA NEBU IH SCH ×2 (14:10→21:31)
[2017-08-20] MEDS: PULMICORT IH SCH ×2 (14:10→21:24)
--- NOTE | 2017-08-20 15:23 | Event Note ---
Date: 08/20/17 Patient seen and examined She had a full history and physical earlier this morning She is alert and oriented Feels a lot better since she came in She is not in any acute distress She is medically stable Continue present management
[2017-08-20] MEDS: NOVOLOG SUB-Q SCH ×3 (17:04→23:53)
[2017-08-21] MEDS ORDERED: AMBIEN PO ONE (00:18)
[2017-08-21] MEDS: DUONEB *Not for PRN Use IH SCH ×3 (02:40→20:18)
[2017-08-21] MEDS: MORPHINE IV PRN ×4 (06:47→22:08)
[2017-08-21 07:18] LABS: Basophils % (Auto) 0.3 % (0.0-1.8); Hematocrit 35.8 % (30.3-42.9); Hemoglobin 11.4 gm/dl (10.1-14.3); Lymphocytes # (Auto) 0.9 K/mm3 (1.2-5.4); Lymphocytes % (Auto) 6.8 % (13.4-35.0); Mean Corpuscular HGB Conc 32 % (30-34); Mean Corpuscular Hemoglobin 27 pg (28-32); Mean Corpuscular Volume 84 fl (79-97); Monocytes # (Auto) 1.2 K/mm3 (0.0-0.8); Monocytes % (Auto) 8.9 % (0.0-7.3); Platelet Count 174 K/mm3 (140-440); Red Blood Count 4.29 M/mm3 (3.65-5.03); Red Cell Distribution Width 16.2 % (13.2-15.2)
[2017-08-21 07:38] LABS: Alanine Aminotransferase 25 units/L (7-56); Albumin 3.4 g/dL (3.9-5); BUN/Creatinine Ratio 26; Blood Urea Nitrogen 18 mg/dL (7-17); Calcium 8.7 mg/dL (8.4-10.2); Hemolysis Index 4
[2017-08-21] MEDS: NOVOLOG SUB-Q SCH ×3 (08:21→17:43)
[2017-08-21] MEDS: BROVANA NEBU IH SCH ×2 (08:33→20:16)
[2017-08-21] MEDS: PULMICORT IH SCH ×2 (08:33→20:16)
[2017-08-21] MEDS: LEVAQUIN 750MG/150ML 750 MG/150 ML BAG IV SCH (09:56)
[2017-08-21] MEDS: DELTASONE PO SCH (09:56)
[2017-08-21] MEDS: ZESTRIL PO SCH (09:57)
[2017-08-21] MEDS: HEPARIN SUB-Q SCH ×2 (09:57→21:54)
[2017-08-21] MEDS: BABY ASPIRIN PO SCH (09:57)
[2017-08-21] MEDS: LOPRESSOR PO SCH ×2 (09:57→21:53)
[2017-08-21] MEDS: PEPCID PO SCH ×2 (09:57→21:52)
--- NOTE | 2017-08-21 11:52 | Progress Note ---
Assessment and Plan Acute respiratory failure: Improved, continue oxygen via nasal cannula, continue this to nebulizer treatments with DuoNeb long-acting beta agonist and evaluation steroids Pulmonary consult pending History of pulmonary sarcoidosis: Continue steroids po Bilateral lung infiltrates: Rule out pneumonia versus secondary to sarcoidosis Continue IV antibiotics Await pulmonary evaluation Type 2 diabetes on insulin: Poorly controlled secondary to likely steroids Will change to high dose sliding scale coverage and continue basal insulin Asthma exacerbation: Improving continue present treatment Hypertension: Well-controlled. Continue present medications Subjective Date of service: 08/21/17 Interval history: Patient is awake alert and oriented Dyspnea is better Complains of hoarseness otherwise Denies sore throat fever or chills Labs reviewed Objective - Constitutional Vitals: Vital Signs - 12hr 08/21/17 08/21/17 08/21/17 07:31 08:00 08:35 Temperature 98.2 F Pulse Rate 99 H Pulse Rate [ 94 H Anterior Bilateral Throughout] Respiratory 20 Rate Respiratory 23 Rate [Anterior Bilateral Throughout] Blood Pressure 131/77 O2 Sat by Pulse 94 93 Oximetry 08/21/17 08:58 Temperature Pulse Rate Pulse Rate [ 96 H Anterior Bilateral Throughout] Respiratory Rate Respiratory 18 Rate [Anterior Bilateral Throughout] Blood Pressure O2 Sat by Pulse Oximetry General appearance: Present: no acute distress - EENT Eyes: PERRL, EOM intact ENT: hearing intact, clear oral mucosa - Neck Neck: supple, normal ROM, no masses or JVD - Respiratory Respiratory effort: normal Respiratory: bilateral: CTA, diminished, negative: wheezing - Cardiovascular Rhythm: regular Heart Sounds: Present: S1 & S2 Extremities: No edema - Gastrointestinal General gastrointestinal: Present: soft, non-tender. Absent: hepatomegaly, splenomegaly - Integumentary Integumentary: clear - Musculoskeletal Musculoskeletal: strength equal bilaterally - Neurologic Neurologic: no focal deficits - Labs CBC & Chem 7: 08/21/17 06:48 08/21/17 06:48 Labs: Abnormal lab results 08/20/17 08/20/17 08/21/17 Range/Units 16:54 22:48 06:48 WBC 13.9 H (4.5-11.0) K/mm3 MCH 27 L (28-32) pg RDW 16.2 H (13.2-15.2) % Lymph % (Auto) 6.8 L (13.4-35.0) % [place] % (Auto) 8.9 H (0.0-7.3) % Lymph # 0.9 L (1.2-5.4) K/mm3 [place] # 1.2 H (0.0-0.8) K/mm3 Seg Neutrophils % 84.0 H (40.0-70.0) % Seg Neutrophils # 11.7 H (1.8-7.7) K/mm3 Chloride (98-107) mmol/L BUN (7-17) mg/dL Glucose (65-100) mg/dL POC Glucose 459 H 462 H (70-105) Albumin (3.9-5) g/dL 08/21/17 08/21/17 08/21/17 Range/Units 06:48 08:09 11:07 WBC (4.5-11.0) K/mm3 MCH (28-32) pg RDW (13.2-15.2) % Lymph % (Auto) (13.4-35.0) % [place] % (Auto) (0.0-7.3) % Lymph # (1.2-5.4) K/mm3 [place] # (0.0-0.8) K/mm3 Seg Neutrophils % (40.0-70.0) % Seg Neutrophils # (1.8-7.7) K/mm3 Chloride 95.7 L (98-107) mmol/L BUN 18 H (7-17) mg/dL Glucose 287 H (65-100) mg/dL POC Glucose 274 H 210 H (70-105) Albumin 3.4 L (3.9-5) g/dL
--- NOTE | 2017-08-21 13:54 | Consultation ---
History of Present Illness Consult date: 08/21/17 Requesting physician: PELON YUAN Reason for consult: asthma, other (sarcoid) History of present illness: 37 y/o female admitted with asthma/sarcoid flare. STarted on high doses of IV steroids and only PRN nebs. Changed steroids to PO and added long acting bronchodilator. Feels better today. Past History Past Medical History: diabetes, hypertension, sarcoidosis, other (asthma) Medications and Allergies Allergies Allergy/AdvReac Type Severity Reaction Status Date / Time No Known Allergies Allergy Verified 12/22/16 10:19 Home Medications Medication Instructions Recorded Confirmed Last Taken Type ALBUTEROL Inhaler [ProAir HFA 2 puff IH QID PRN #1 inhalation 08/24/16 08/20/17 Unknown Rx Inhaler] Insulin NPH/Regular [NovoLIN 70/30] 60 unit SUB-Q BIDDIAB #2 units 08/24/1601/3012/21/16 Rx Metoprolol Tartrate [Lopressor] 50 mg PO BID #60 tablet 08/24/16 08/20/17 Rx ALBUTEROL NEB's [Proventil 0.083% 2.5 mg IH QID PRN 12/22/16 08/20/17 Unknown History NEBS] Aspirin 81 mg PO DAILY 12/22/16 08/20/17 12/21/16 History Lisinopril [Zestril TAB] 40 mg PO QDAY #30 tablet 12/25/16 08/20/17 Unknown Rx predniSONE [Deltasone] 20 mg PO QDAY 08/20/17 08/20/17 Unknown History Active Meds: Active Medications Acetaminophen (Tylenol) 650 mg PO Q4H PRN PRN Reason: Pain MILD(1-3)/Fever >100.5/IBRAHIM Last Admin: 08/20/17 11:06 Dose: 650 mg Albuterol (Proventil) 2.5 mg IH Q4HRT PRN PRN Reason: Shortness Of Breath Albuterol/Ipratropium (Duoneb *Not For Prn Use*) 1 ampul IH Q6HRT [facility], [facility]–1983 Last Admin: 08/21/17 02:40 Dose: Not Given Arformoterol Tartrate (Brovana Nebu) 15 mcg IH Q12HRT [facility], [facility]1983 Last Admin: 08/21/17 08:33 Dose: 15 mcg Aspirin (Baby Aspirin) 81 mg PO DAILY [facility] Last Admin: 08/21/17 09:57 Dose: 81 mg Bisacodyl (Dulcolax) 10 mg LA QDAY PRN PRN Reason: Constipation unrelieved by MOM Budesonide (Pulmicort) 0.5 mg IH Q12HRT [facility], [facility]1983 Last Admin: 08/21/17 08:33 Dose: 0.5 mg Famotidine (Pepcid) 20 mg PO BID [facility] Last Admin: 08/21/17 09:57 Dose: 20 mg Heparin Sodium (Porcine) (Heparin) 5,000 unit SUB-Q Q12HR [facility]1983 Last Admin: 08/21/17 09:57 Dose: 5,000 unit Levofloxacin/Dextrose (Levaquin 750mg/150ml) 750 mg in 150 mls @ 100 mls/hr IV Q24HR [facility]1983 PRN Reason: Protocol Last Admin: 08/21/17 09:56 Dose: 100 mls/hr Insulin Aspart (Novolog) 0 units SUB-Q ACHS [facility]1983 PRN Reason: Protocol Last Admin: 08/21/17 12:49 Dose: 4 units Insulin Human Isoph/Insulin Regular (Novolin 70/30) 60 unit SUB-Q BIDDIAB [facility] Last Admin: 08/21/17 08:21 Dose: 60 unit Lisinopril (Zestril) 40 mg PO QDAY [facility] Last Admin: 08/21/17 09:57 Dose: 40 mg Magnesium Hydroxide (Milk Of Magnesia) 30 ml PO Q4H PRN PRN Reason: Constipation Metoprolol Tartrate (Lopressor) 50 mg PO BID [facility] Last Admin: 08/21/17 09:57 Dose: 50 mg Morphine Sulfate (Morphine) 2 mg IV Q4H PRN PRN Reason: Pain, Moderate (4-6) Morphine Sulfate (Morphine) 4 mg IV Q4H PRN PRN Reason: Pain , Severe (7-10) Last Admin: 08/21/17 06:47 Dose: 4 mg Ondansetron HCl (Zofran) 4 mg IV Q3H PRN PRN Reason: N/V unrelieved by Reglan Last Admin: 08/20/17 09:40 Dose: 4 mg Oxycodone/Acetaminophen (Percocet 5/325) 1 tab PO Q6H PRN PRN Reason: Pain, Moderate (4-6) Prednisone (Deltasone) 60 mg PO QDAY GABRIEL Last Admin: 08/21/17 09:56 Dose: 60 mg Review of Systems All systems: negative Physical Examination Vital signs: Vital Signs Temp Pulse Resp BP Pulse Ox 98.3 F 107 H 24 154/89 94 08/20/17 02:35 08/20/17 02:35 08/20/17 02:35 08/20/17 02:35 08/20/17 02:35 General appearance: no acute distress, alert, other (obese) Eyes: non-icteric ENT: oropharynx moist Effort: normal Ascultation: Bilateral: wheezes Results - Laboratory Findings CBC and BMP: 08/21/17 06:48 08/21/17 06:48 Abnormal lab findings: Abnormal Labs 08/20/17 08/20/17 08/20/17 03:06 03:06 03:06 WBC 11.3 H MCH 27 L RDW 16.2 H Lymph % (Auto) 12.6 L [place] % (Auto) 8.7 H Lymph # [place] # 1.0 H Seg Neutrophils % 77.9 H Seg Neutrophils # 8.8 H Chloride 95.5 L BUN 18 H Glucose 294 H POC Glucose Hemoglobin A1c 10.1 H Albumin 08/20/17 08/20/17 08/20/17 10:32 16:54 22:48 WBC MCH RDW Lymph % (Auto) [place] % (Auto) Lymph # [place] # Seg Neutrophils % Seg Neutrophils # Chloride BUN Glucose POC Glucose 164 H 459 H 462 H Hemoglobin A1c Albumin 08/21/17 08/21/17 08/21/17 06:48 06:48 08:09 WBC 13.9 H MCH 27 L RDW 16.2 H Lymph % (Auto) 6.8 L [place] % (Auto) 8.9 H Lymph # 0.9 L [place] # 1.2 H Seg Neutrophils % 84.0 H Seg Neutrophils # 11.7 H Chloride 95.7 L BUN 18 H Glucose 287 H POC Glucose 274 H Hemoglobin A1c Albumin 3.4 L 08/21/17 11:07 WBC MCH RDW Lymph % (Auto) [place] % (Auto) Lymph # [place] # Seg Neutrophils % Seg Neutrophils # Chloride BUN Glucose POC Glucose 210 H Hemoglobin A1c Albumin - Diagnostic Findings Chest x-ray: image reviewed (chronic interstital lung disease) Assessment and Plan 37 y/o female with acute exacerbation of asthma and sarcoid. 1. Continue Prednisone 60 and then taper from there down to 40. would leave on 40 until seen in the office. 2. Would change abx therapy to PO. Treat for a total of 5 days. 3. Hopeful discharge in the next 24-48 hours
[2017-08-22] MEDS: NOVOLOG SUB-Q SCH ×4 (00:53→22:28)
[2017-08-22] MEDS: MORPHINE IV PRN ×4 (02:51→22:03)
[2017-08-22 07:04] LABS: Hematocrit 36.9 % (30.3-42.9); Hemoglobin 11.8 gm/dl (10.1-14.3); Mean Corpuscular HGB Conc 32 % (30-34); Mean Corpuscular Hemoglobin 27 pg (28-32); Mean Corpuscular Volume 83 fl (79-97); Platelet Count 177 K/mm3 (140-440); Red Blood Count 4.43 M/mm3 (3.65-5.03); Red Cell Distribution Width 16.3 % (13.2-15.2)
[2017-08-22 07:29] LABS: BUN/Creatinine Ratio 23; Blood Urea Nitrogen 16 mg/dL (7-17); Calcium 8.2 mg/dL (8.4-10.2); Hemolysis Index 10
[2017-08-22] MEDS: BROVANA NEBU IH SCH ×2 (07:51→20:16)
[2017-08-22] MEDS: PULMICORT IH SCH ×2 (07:51→20:16)
[2017-08-22] MEDS: DUONEB *Not for PRN Use IH SCH ×3 (07:51→20:18)
[2017-08-22] MEDS: LEVAQUIN 750MG/150ML 750 MG/150 ML BAG IV SCH (09:45)
[2017-08-22] MEDS: DELTASONE PO SCH (09:46)
[2017-08-22] MEDS: BABY ASPIRIN PO SCH (09:46)
[2017-08-22] MEDS: HEPARIN SUB-Q SCH ×2 (09:47→22:04)
[2017-08-22] MEDS: PEPCID PO SCH ×2 (09:47→22:04)
[2017-08-22] MEDS: LOPRESSOR PO SCH ×2 (09:51→22:29)
[2017-08-22] MEDS: ZESTRIL PO SCH (09:51)
--- NOTE | 2017-08-22 11:24 | Progress Note ---
Assessment and Plan /Acute respiratory failure: Improved, continue oxygen via nasal cannula, continue this to nebulizer treatments with DuoNeb long-acting beta agonist and evaluation steroids Pulmonary following /History of pulmonary sarcoidosis: Continue steroids po /Bilateral lung infiltrates: likely pneumonia versus secondary to sarcoidosis Continue IV antibiotics pulmonary recommended to cont abx Type 2 diabetes on insulin: Poorly controlled secondary to likely steroids Will continue to high dose sliding scale coverage and continue basal insulin Asthma exacerbation: Improving continue present treatment Hypertension: Well-controlled. Continue present medications Leukocytosis -likely due to steroid Disposition: Home if remains stable by tomorrow Subjective Date of service: 08/22/17 Interval history: Patient seen and examined. Medical records and medication list reviewed. No acute event overnight noted by the RN. Patient c/o chest pain with cough and has exertinal difficulty breathing. Patient is tolerating diet. Discussed plan of care at bedside with patient. Objective - Exam Narrative Exam: General appearance: Present: no acute distress - EENT Eyes: PERRL, EOM intact ENT: hearing intact, clear oral mucosa - Neck Neck: supple, normal ROM, no masses or JVD - Respiratory Respiratory effort: normal Respiratory: bilateral: CTA, diminished, negative: wheezing - Cardiovascular Rhythm: regular Heart Sounds: Present: S1 & S2 Extremities: No edema - Gastrointestinal General gastrointestinal: Present: soft, non-tender. Absent: hepatomegaly, splenomegaly - Integumentary Integumentary: clear - Musculoskeletal Musculoskeletal: strength equal bilaterally - Neurologic Neurologic: no focal deficits - Constitutional Vitals: Vital Signs - 12hr 08/21/17 08/22/17 08/22/17 23:55 03:00 03:12 Temperature Pulse Rate Pulse Rate [ 96 H 98 H Anterior Bilateral Throughout] Respiratory Rate Respiratory 20 22 Rate [Anterior Bilateral Throughout] Blood Pressure O2 Sat by Pulse 32 L Oximetry 08/22/17 08/22/17 08/22/17 07:52 07:54 08:03 Temperature 98.4 F Pulse Rate 121 H Pulse Rate [ 103 H Anterior Bilateral Throughout] Respiratory 16 Rate Respiratory 18 Rate [Anterior Bilateral Throughout] Blood Pressure 140/87 O2 Sat by Pulse 95 92 Oximetry 08/22/17 08/22/17 08/22/17 08:12 09:48 09:51 Temperature Pulse Rate 121 H Pulse Rate [ 120 H Anterior Bilateral Throughout] Respiratory 20 Rate Respiratory 18 Rate [Anterior Bilateral Throughout] Blood Pressure 140/87 O2 Sat by Pulse Oximetry Extremities: pulses intact, No edema, normal color, Full ROM - Labs CBC & Chem 7: 08/22/17 06:45 08/22/17 06:45 Labs: Abnormal lab results 08/21/17 08/21/17 08/21/17 Range/Units 11:07 16:48 21:35 WBC (4.5-11.0) K/mm3 MCH (28-32) pg RDW (13.2-15.2) % POC Glucose 210 H 336 H 348 H (70-105) Calcium (8.4-10.2) mg/dL 08/22/17 08/22/17 08/22/17 Range/Units 06:45 06:45 09:01 WBC 12.9 H (4.5-11.0) K/mm3 MCH 27 L (28-32) pg RDW 16.3 H (13.2-15.2) % POC Glucose 167 H (70-105) Calcium 8.2 L (8.4-10.2) mg/dL
--- NOTE | 2017-08-22 13:00 | Progress Note ---
Assessment and Plan Asthma exacerbation. No wheezing at this time. Already on by mouth steroids Sarcoidosis recent tapering down of by mouth steroids Hypoxic respiratory failure, on home oxygen support. Chronic Morbid obesity Recommendations Continue current oxygen support. She is on 2 L/m oxygen which is her baseline oxygen at home Continue nebulizer therapy every 4-6 hours Brovana nebulizationsj Continue by mouth steroids. Plan will be to taper her down eventually to 20 mg daily which is her last baseline dose. The patient also reports that she being set up for methotrexate therapy by Dr. Renee, as an outpatient. Complete 7 days of antibiotics Out of bed as tolerated Subjective Date of service: 08/22/17 Interval history: Procedure reports improvement today. She still feel her breathing is not yet back to baseline with mild wheezing earlier in the day. No active expectoration Objective Vital Signs - 12hr 08/22/17 08/22/17 08/22/17 03:00 03:12 07:52 Temperature Pulse Rate Pulse Rate [ 96 H 98 H 103 H Anterior Bilateral Throughout] Respiratory Rate Respiratory 20 22 18 Rate [Anterior Bilateral Throughout] Blood Pressure O2 Sat by Pulse Oximetry 08/22/17 08/22/17 08/22/17 07:54 08:03 08:12 Temperature 98.4 F Pulse Rate 121 H Pulse Rate [ 120 H Anterior Bilateral Throughout] Respiratory 16 Rate Respiratory 18 Rate [Anterior Bilateral Throughout] Blood Pressure 140/87 O2 Sat by Pulse 95 92 Oximetry 08/22/17 08/22/17 08/22/17 09:48 09:51 11:58 Temperature 99.6 F Pulse Rate 121 H 111 H Pulse Rate [ Anterior Bilateral Throughout] Respiratory 20 18 Rate Respiratory Rate [Anterior Bilateral Throughout] Blood Pressure 140/87 89/63 O2 Sat by Pulse 94 Oximetry Constitutional: no acute distress, alert, other (morbidly obese) Eyes: non-icteric ENT: oropharynx moist Neck: no JVD Effort: normal Ascultation: Bilateral: clear, diminished breath sounds, rales (fine crackles and inspiratory at bases) Cardiovascular: regular rate and rhythm Gastrointestinal: normoactive bowel sounds Extremities: no cyanosis, no edema Neurologic: normal mental status, non-focal exam, pupils equal and round, CN II- XII normal Psychiatric: mood appropriate CBC and BMP: 08/22/17 06:45 08/22/17 06:45 Abnormal lab findings: Abnormal Labs 08/20/17 08/20/17 08/20/17 03:06 03:06 03:06 WBC 11.3 H MCH 27 L RDW 16.2 H Lymph % (Auto) 12.6 L [place] % (Auto) 8.7 H Lymph # [place] # 1.0 H Seg Neutrophils % 77.9 H Seg Neutrophils # 8.8 H Chloride 95.5 L BUN 18 H Glucose 294 H POC Glucose Hemoglobin A1c 10.1 H Calcium Albumin 08/20/17 08/20/17 08/20/17 10:32 16:54 22:48 WBC MCH RDW Lymph % (Auto) [place] % (Auto) Lymph # [place] # Seg Neutrophils % Seg Neutrophils # Chloride BUN Glucose POC Glucose 164 H 459 H 462 H Hemoglobin A1c Calcium Albumin 08/21/17 08/21/17 08/21/17 06:48 06:48 08:09 WBC 13.9 H MCH 27 L RDW 16.2 H Lymph % (Auto) 6.8 L [place] % (Auto) 8.9 H Lymph # 0.9 L [place] # 1.2 H Seg Neutrophils % 84.0 H Seg Neutrophils # 11.7 H Chloride 95.7 L BUN 18 H Glucose 287 H POC Glucose 274 H Hemoglobin A1c Calcium Albumin 3.4 L 08/21/17 08/21/17 08/21/17 11:07 16:48 21:35 WBC MCH RDW Lymph % (Auto) [place] % (Auto) Lymph # [place] # Seg Neutrophils % Seg Neutrophils # Chloride BUN Glucose POC Glucose 210 H 336 H 348 H Hemoglobin A1c Calcium Albumin 08/22/17 08/22/17 08/22/17 06:45 06:45 09:01 WBC 12.9 H MCH 27 L RDW 16.3 H Lymph % (Auto) [place] % (Auto) Lymph # [place] # Seg Neutrophils % Seg Neutrophils # Chloride BUN Glucose POC Glucose 167 H Hemoglobin A1c Calcium 8.2 L Albumin 08/22/17 12:33 WBC MCH RDW Lymph % (Auto) [place] % (Auto) Lymph # [place] # Seg Neutrophils % Seg Neutrophils # Chloride BUN Glucose POC Glucose 140 H Hemoglobin A1c Calcium Albumin
[2017-08-23] MEDS: NOVOLOG SUB-Q SCH ×4 (08:02→22:29)
[2017-08-23] MEDS: BROVANA NEBU IH SCH ×2 (08:34→20:51)
[2017-08-23] MEDS: PULMICORT IH SCH ×2 (08:34→20:50)
[2017-08-23] MEDS: BABY ASPIRIN PO SCH (09:17)
[2017-08-23] MEDS: DELTASONE PO SCH (09:18)
[2017-08-23] MEDS: LOPRESSOR PO SCH ×2 (09:20→22:30)
[2017-08-23] MEDS: HEPARIN SUB-Q SCH ×2 (09:20→22:30)
[2017-08-23] MEDS: LEVAQUIN PO SCH (09:20)
[2017-08-23] MEDS: PEPCID PO SCH ×2 (09:21→22:31)
[2017-08-23] MEDS: ZESTRIL PO SCH (09:21)
[2017-08-23] MEDS ORDERED: ZESTRIL PO SCH (09:59)
[2017-08-23] MEDS ORDERED: LOPRESSOR PO ONE (11:00)
[2017-08-23] MEDS: DUONEB *Not for PRN Use IH SCH ×3 (13:39→20:50)
--- NOTE | 2017-08-23 16:06 | Progress Note ---
Assessment and Plan Tachyarrythmia - get CE, EKG - will obtain 2d echo /Acute respiratory failure: Improved, continue oxygen via nasal cannula, continue this to nebulizer treatments with DuoNeb long-acting beta agonist and evaluation steroids Pulmonary following /History of pulmonary sarcoidosis: Continue steroids po /Bilateral lung infiltrates: likely pneumonia versus secondary to sarcoidosis Continue IV antibiotics pulmonary recommended to cont abx Type 2 diabetes on insulin: Poorly controlled secondary to likely steroids Will continue to high dose sliding scale coverage and continue basal insulin Asthma exacerbation: Improving continue present treatment Hypertension: Well-controlled. Continue present medications Leukocytosis -likely due to steroid Subjective Date of service: 08/23/17 Interval history: Patient seen and examined. Medical records and medication list reviewed. No acute event overnight noted by the RN. Patient c/o chest pain with cough and has exertinal difficulty breathing. Patient is tolerating diet. She is running HR of 130s on monitor Discussed plan of care at bedside with patient. Objective - Constitutional Vitals: Vital Signs - 12hr 08/23/17 08/23/17 08/23/17 07:14 08:00 10:00 Temperature 99.7 F H Pulse Rate 120 H Pulse Rate [ 100 H Anterior Bilateral Throughout] Pulse Rate [ 102 H Posterior Bilateral Throughout] Respiratory 24 Rate Respiratory 18 Rate [Anterior Bilateral Throughout] Respiratory 18 Rate [Posterior Bilateral Throughout] Blood Pressure 125/91 O2 Sat by Pulse 93 97 Oximetry 08/23/17 08/23/17 08/23/17 13:15 14:38 15:46 Temperature 99.4 F 98.8 F Pulse Rate 109 H 114 H Pulse Rate [ 88 Anterior Bilateral Throughout] Pulse Rate [ 96 H Posterior Bilateral Throughout] Respiratory 18 20 Rate Respiratory 18 Rate [Anterior Bilateral Throughout] Respiratory 20 Rate [Posterior Bilateral Throughout] Blood Pressure 118/77 123/75 O2 Sat by Pulse 93 92 Oximetry - Labs CBC & Chem 7: 08/24/17 06:25 08/23/17 15:55 Labs: Abnormal lab results 08/22/17 08/22/17 08/23/17 Range/Units 16:26 21:42 10:14 POC Glucose 325 H 338 H 221 H (70-105) 08/23/17 Range/Units 12:01 POC Glucose 150 H (70-105)
--- NOTE | 2017-08-23 16:36 | Progress Note ---
Assessment and Plan Asthma exacerbation. No wheezing mostly clear. On by mouth steroids Fever. Still with some low-grade temperature. No additional complaints Sarcoidosis recent tapering down of by mouth steroids Hypoxic respiratory failure, on home oxygen support. Chronic Morbid obesity Recommendations Continue current oxygen support. Will add incentive spirometry and flutter therapy if available for secretion clearance Monitor fever Continue nebulizer therapy every 4-6 hours Complete 7 days of antibiotics Out of bed as tolerated Subjective Date of service: 08/23/17 Interval history: Feels better today. Minimal wheezing. Mucoid expectoration noted Objective Vital Signs - 12hr 08/23/17 08/23/17 08/23/17 07:14 08:00 10:00 Temperature 99.7 F H Pulse Rate 120 H Pulse Rate [ 100 H Anterior Bilateral Throughout] Pulse Rate [ 102 H Posterior Bilateral Throughout] Respiratory 24 Rate Respiratory 18 Rate [Anterior Bilateral Throughout] Respiratory 18 Rate [Posterior Bilateral Throughout] Blood Pressure 125/91 O2 Sat by Pulse 93 97 Oximetry 08/23/17 08/23/17 08/23/17 13:15 14:38 15:46 Temperature 99.4 F 98.8 F Pulse Rate 109 H 114 H Pulse Rate [ 88 Anterior Bilateral Throughout] Pulse Rate [ 96 H Posterior Bilateral Throughout] Respiratory 18 20 Rate Respiratory 18 Rate [Anterior Bilateral Throughout] Respiratory 20 Rate [Posterior Bilateral Throughout] Blood Pressure 118/77 123/75 O2 Sat by Pulse 93 92 Oximetry Constitutional: no acute distress, alert, other (morbidly obese) Eyes: non-icteric ENT: oropharynx moist Neck: no JVD Effort: normal Ascultation: Bilateral: clear, diminished breath sounds, wheezes (minimal), rales (fine crackles and inspiratory at bases) Cardiovascular: regular rate and rhythm Gastrointestinal: normoactive bowel sounds Extremities: no cyanosis, no edema Neurologic: normal mental status, non-focal exam, pupils equal and round, CN II- XII normal Psychiatric: mood appropriate CBC and BMP: 08/22/17 06:45 08/23/17 15:55 Abnormal lab findings: Abnormal Labs 08/20/17 08/20/17 08/20/17 03:06 03:06 03:06 WBC 11.3 H MCH 27 L RDW 16.2 H Lymph % (Auto) 12.6 L Humphreys % (Auto) 8.7 H Lymph # Humphreys # 1.0 H Seg Neutrophils % 77.9 H Seg Neutrophils # 8.8 H Chloride 95.5 L BUN 18 H Glucose 294 H POC Glucose Hemoglobin A1c 10.1 H Calcium Albumin 08/20/17 08/20/17 08/20/17 10:32 16:54 22:48 WBC MCH RDW Lymph % (Auto) Humphreys % (Auto) Lymph # Humphreys # Seg Neutrophils % Seg Neutrophils # Chloride BUN Glucose POC Glucose 164 H 459 H 462 H Hemoglobin A1c Calcium Albumin 08/21/17 08/21/17 08/21/17 06:48 06:48 08:09 WBC 13.9 H MCH 27 L RDW 16.2 H Lymph % (Auto) 6.8 L Humphreys % (Auto) 8.9 H Lymph # 0.9 L Humphreys # 1.2 H Seg Neutrophils % 84.0 H Seg Neutrophils # 11.7 H Chloride 95.7 L BUN 18 H Glucose 287 H POC Glucose 274 H Hemoglobin A1c Calcium Albumin 3.4 L 08/21/17 08/21/17 08/21/17 11:07 16:48 21:35 WBC MCH RDW Lymph % (Auto) Humphreys % (Auto) Lymph # Humphreys # Seg Neutrophils % Seg Neutrophils # Chloride BUN Glucose POC Glucose 210 H 336 H 348 H Hemoglobin A1c Calcium Albumin 08/22/17 08/22/17 08/22/17 06:45 06:45 09:01 WBC 12.9 H MCH 27 L RDW 16.3 H Lymph % (Auto) Humphreys % (Auto) Lymph # Humphreys # Seg Neutrophils % Seg Neutrophils # Chloride BUN Glucose POC Glucose 167 H Hemoglobin A1c Calcium 8.2 L Albumin 08/22/17 08/22/17 08/22/17 12:33 16:26 21:42 WBC MCH RDW Lymph % (Auto) Humphreys % (Auto) Lymph # Humphreys # Seg Neutrophils % Seg Neutrophils # Chloride BUN Glucose POC Glucose 140 H 325 H 338 H Hemoglobin A1c Calcium Albumin 08/23/17 08/23/17 10:14 12:01 WBC MCH RDW Lymph % (Auto) Humphreys % (Auto) Lymph # Humphreys # Seg Neutrophils % Seg Neutrophils # Chloride BUN Glucose POC Glucose 221 H 150 H Hemoglobin A1c Calcium Albumin
[2017-08-23 16:42] LABS: BUN/Creatinine Ratio 20; Blood Urea Nitrogen 18 mg/dL (7-17); Calcium 8.2 mg/dL (8.4-10.2); Hemolysis Index 13
[2017-08-24 07:33] LABS: Basophils % (Auto) 0.4 % (0.0-1.8); Eosinophils % (Auto) 0.2 % (0.0-4.3); Hematocrit 35.6 % (30.3-42.9); Hemoglobin 11.2 gm/dl (10.1-14.3); Lymphocytes # (Auto) 3.2 K/mm3 (1.2-5.4); Mean Corpuscular HGB Conc 32 % (30-34); Mean Corpuscular Hemoglobin 26 pg (28-32); Mean Corpuscular Volume 83 fl (79-97); Monocytes # (Auto) 1.3 K/mm3 (0.0-0.8); Monocytes % (Auto) 11.1 % (0.0-7.3); Red Blood Count 4.32 M/mm3 (3.65-5.03); Red Cell Distribution Width 16.1 % (13.2-15.2)
[2017-08-24 07:44] LABS: Platelet Count 155 K/mm3 (140-440)
[2017-08-24] MEDS: NOVOLOG SUB-Q SCH ×2 (07:47→12:00)
[2017-08-24] MEDS: PULMICORT IH SCH (07:54)
[2017-08-24] MEDS: DUONEB *Not for PRN Use IH SCH ×2 (07:55→13:49)
[2017-08-24] MEDS: BROVANA NEBU IH SCH (07:55)
[2017-08-24] MEDS: HEPARIN SUB-Q SCH (09:58)
[2017-08-24] MEDS: BABY ASPIRIN PO SCH (09:58)
[2017-08-24] MEDS: DELTASONE PO SCH (09:58)
[2017-08-24] MEDS: LEVAQUIN PO SCH (09:58)
[2017-08-24] MEDS: PEPCID PO SCH (09:59)
[2017-08-24] MEDS: LOPRESSOR PO SCH (09:59)
[2017-08-24] MEDS ORDERED: ZESTRIL PO SCH (10:00)
--- NOTE | 2017-08-24 12:17 | Discharge Summary ---
Providers - Providers Date of Admission: 08/20/17 05:32 Date of discharge: 08/24/17 Attending physician: EDI JOHNSON 08/20/17 08:06 Consult to Physician [CONS] Routine Consulting Provider: EMELIA HAMLIN Reason For Exam: Asthma exacerbation/Pneumonia/Sarcodosis Place consult to:: DR. BELTRAN Notified:: DR. BELTRAN Phone number called:: IN HOUSE Was contact made?: Yes If yes, spoke with:: DR. BELTRAN Time called:: 10:30 Primary care physician: QUEENIE CROCKETT Hospitalization Condition: Stable Hospital course: Discharge diagnosis and management: /Acute respiratory failure: Improved, continue oxygen via nasal cannula, continue this to nebulizer treatments with DuoNeb long-acting beta agonist and evaluation steroids Pulmonary following /History of pulmonary sarcoidosis: Continue steroids po /Bilateral lung infiltrates: likely pneumonia versus secondary to sarcoidosis Continue IV antibiotics pulmonary recommended to cont abx Type 2 diabetes on insulin: Poorly controlled secondary to likely steroids Will continue to high dose sliding scale coverage and continue basal insulin Asthma exacerbation: Improving continue present treatment Hypertension: Well-controlled. Continue present medications Leukocytosis -likely due to steroid /Tachyarrythmia - ST - nor CE, ST on EKG - preserve EF on 2d echo Disposition: DC/TX-06 HOME UNDER HOME HL Time spent for discharge: 32 minutes Core Measure Documentation - Palliative Care Palliative Care/ Comfort Measures: Not Applicable - Core Measures Any of the following diagnoses?: none Exam - Physical Exam Narrative exam: General appearance: Present: no acute distress - EENT Eyes: PERRL, EOM intact ENT: hearing intact, clear oral mucosa - Neck Neck: supple, normal ROM, no masses or JVD - Respiratory Respiratory effort: normal Respiratory: bilateral: CTA, diminished, negative: wheezing - Cardiovascular Rhythm: regular Heart Sounds: Present: S1 & S2 Extremities: No edema - Gastrointestinal General gastrointestinal: Present: soft, non-tender. Absent: hepatomegaly, splenomegaly - Integumentary Integumentary: clear - Musculoskeletal Musculoskeletal: strength equal bilaterally - Neurologic Neurologic: no focal deficits - Constitutional Vitals: Temp Pulse Resp BP Pulse Ox 98.4 F 103 H 16 127/83 94 08/24/17 08:17 08/24/17 08:17 08/24/17 08:17 08/24/17 08:17 01/10/18 08:17 Plan Activity: advance as tolerated Weight Bearing Status: Weight Bear as Tolerated Diet: low fat, low salt Additional Instructions: cont prednisone 60mg daily for one week then resume home dose of 20mg daily Follow up with: QUEENIE CROCKETT MD [Primary Care Provider] - 3-5 Days Prescriptions: Famotidine [Pepcid] 20 mg PO BID #60 tablet Fluticasone/Salmeterol [Advair 250-50 Diskus] 1 each IH BID 30 Days blst.w.dev Levofloxacin [Levaquin TAB] 750 mg PO DAILY #4 tablet Lisinopril [Zestril TAB] 20 mg PO QDAY #30 tablet Metoprolol [Lopressor TAB] 75 mg PO BID #60 tablet predniSONE [Deltasone] 60 mg PO QDAY #7 tablet
[2017-08-24 14:38] VITALS: BP 131/83
== END 2017-08-24 15:38 | disposition home health service (06) | DRG 193 ==
LOC: ED 01:45 → 3A 05:32
PROVIDERS: ADMIT Internal Medicine; ATTEND Internal Medicine
DX: J18.9 Pneumonia, unspecified organism (principal); J96.21 Acute and chronic respiratory failure with hypoxia; J45.901 Unspecified asthma with (acute) exacerbation; Z68.42 Body mass index [BMI] 45.0-49.9, adult; E66.01 Morbid (severe) obesity due to excess calories; E11.9 Type 2 diabetes mellitus without complications; T38.0X5A Adverse effect of glucocorticoids and synthetic analogues, initial encounter; I10 Essential (primary) hypertension; D72.829 Elevated white blood cell count, unspecified; I48.91 Unspecified atrial fibrillation; Z79.4 Long term (current) use of insulin; Y92.89 Other specified places as the place of occurrence of the external cause
CPT/HCPCS: 36415; 71046; 80048; 80053; 82962; 83036; 83880; 84484; 84703; 85025; 85027; 87040; 93005; 93010; 93306; 94640; 94760; 96365; 96375; J1644; J1815; J1956; J2270; J2405; J2930; J7030; J7512

== ENCOUNTER 2017-12-23 18:24 | Emergency (ER) | payer SELFPAY ==
[2017-12-23 18:56] LABS: Basophils % (Auto) 0.2 % (0.0-1.8); Eosinophils % (Auto) 0.2 % (0.0-4.3); Lymphocytes # (Auto) 3.8 K/mm3 (1.2-5.4); Lymphocytes % (Auto) 20.8 % (13.4-35.0); Mean Corpuscular HGB Conc 31 % (30-34); Mean Corpuscular Volume 81 fl (79-97); Monocytes # (Auto) 0.8 K/mm3 (0.0-0.8); Monocytes % (Auto) 4.4 % (0.0-7.3); Platelet Count 245 K/mm3 (140-440); Red Blood Count 5.26 M/mm3 (3.65-5.03); Red Cell Distribution Width 16.6 % (13.2-15.2)
--- NOTE | 2017-12-23 19:00 | Emergency Department Report ---
ED General Adult HPI - General Chief complaint: Chest Pain Stated complaint: SOB CHEST PAINS Time Seen by Provider: 12/23/17 18:47 Source: patient, RN notes reviewed, old records reviewed Mode of arrival: Ambulatory Limitations: No Limitations - History of Present Illness Initial comments: This is a 37-year-old female who was previously on known to this provider. Pulp Roller: Dr. Renee Cardiology: [facility] Past medical history: Morbid obesity, hypertension, steroid dependence, sarcoid , asthma, paroxysmal A. fib, diabetes Patient presents to the ER with a subjective sensation that her A. fib had " gone off." She endorses one month of unintentional weight gain, approximately 30 pounds, shortness of breath and decreased exercise tolerance. She denies DVT , pulmonary embolus risk factors. She currently has no chest pain, headache, neck pain, abdominal pain. She denies urinary symptoms, and admits to chronic shortness of breath which is not new, worsening or different. Patient endorses that she does not consume tobacco products. -: Gradual Location: chest Radiation: non-radiation Quality: aching Consistency: now resolved Improves with: rest Worsens with: movement Associated Symptoms: chest pain, cough, malaise, shortness of breath, weakness. denies: confusion, diaphoresis, fever/chills, headaches, loss of appetite, nausea/vomiting, rash, seizure, syncope - Related Data Home Medications Medication Instructions Recorded Confirmed Last Taken ALBUTEROL NEB's [Proventil 0.083% 2.5 mg IH QID PRN 12/22/16 08/20/17 Unknown NEBS] Aspirin 81 mg PO DAILY 12/22/16 08/20/17 12/21/16 predniSONE [Deltasone] 20 mg PO QDAY 08/20/17 08/20/17 Unknown Previous Rx's Medication Instructions Recorded Last Taken Type ALBUTEROL Inhaler [ProAir HFA 2 puff IH QID PRN 30 Days 08/24/17 Unknown Rx Inhaler] inhalation Famotidine [Pepcid] 20 mg PO BID #60 tablet 08/24/17 Unknown Rx Fluticasone/Salmeterol [Advair 1 each IH BID 30 Days blst.w.dev 08/24/17 Unknown Rx 250-50 Diskus] Insulin NPH/Regular [NovoLIN 70/30] 50 unit SUB-Q BIDDIAB units 08/24/17 Unknown Rx Levofloxacin [Levaquin TAB] 750 mg PO DAILY #4 tablet 08/24/17 Unknown Rx Lisinopril [Zestril TAB] 20 mg PO QDAY #30 tablet 08/24/17 Unknown Rx Metoprolol [Lopressor TAB] 75 mg PO BID #60 tablet 08/24/17 Unknown Rx predniSONE [Deltasone] 60 mg PO QDAY #7 tablet 08/24/17 Unknown Rx Allergies Allergy/AdvReac Type Severity Reaction Status Date / Time No Known Allergies Allergy Verified 12/22/16 10:19 ED Review of Systems ROS: Stated complaint: SOB CHEST PAINS Other details as noted in HPI Comment: All other systems reviewed and negative ED Past Medical Hx - Past Medical History Previous Medical History?: Yes Hx Hypertension: Yes Hx CVA: No Hx Heart Attack/AMI: No Hx Congestive Heart Failure: No Hx Diabetes: Yes Hx Deep Vein Thrombosis: No Hx Pulmonary Embolism: No Hx Asthma: No Hx COPD: No Hx Tuberculosis: No Hx HIV: No Additional medical history: Sarcoidosis. Afib - Surgical History Past Surgical History?: Yes Hx Coronary Stent: No Hx Pacemaker: No Additional Surgical History: x3 - Social History Smoking Status: Never Smoker Substance Use Type: None - Medications Home Medications: Home Medications Medication Instructions Recorded Confirmed Last Taken Type ALBUTEROL NEB's [Proventil 0.083% 2.5 mg IH QID PRN 12/22/16 08/20/17 Unknown History NEBS] Aspirin 81 mg PO DAILY 12/22/16 08/20/17 12/21/16 History predniSONE [Deltasone] 20 mg PO QDAY 08/20/17 08/20/17 Unknown History ALBUTEROL Inhaler [ProAir HFA 2 puff IH QID PRN 30 Days 08/24/17 08/20/17 Unknown Rx Inhaler] inhalation Famotidine [Pepcid] 20 mg PO BID #60 tablet 08/24/17 Unknown Rx Fluticasone/Salmeterol [Advair 1 each IH BID 30 Days blst.w.dev 08/24/17 Unknown Rx 250-50 Diskus] Insulin NPH/Regular [NovoLIN 70/30] 50 unit SUB-Q BIDDIAB units 08/24/17 Unknown Rx Levofloxacin [Levaquin TAB] 750 mg PO DAILY #4 tablet 08/24/17 Unknown Rx Lisinopril [Zestril TAB] 20 mg PO QDAY #30 tablet 08/24/17 Unknown Rx Metoprolol [Lopressor TAB] 75 mg PO BID #60 tablet 08/24/17 Unknown Rx predniSONE [Deltasone] 60 mg PO QDAY #7 tablet 08/24/17 Unknown Rx ED Physical Exam - General Limitations: No Limitations, Physical Limitation General appearance: alert, in distress, obese - Head Head exam: Present: atraumatic, normocephalic - Eye Eye exam: Present: normal appearance - ENT ENT exam: Present: normal exam, normal orophraynx, mucous membranes moist, normal external ear exam - Neck Neck exam: Present: normal inspection - Respiratory Respiratory exam: Present: decreased breath sounds. Absent: respiratory distress, wheezes, rales, rhonchi, stridor - Cardiovascular Cardiovascular Exam: Present: normal rhythm, tachycardia, normal heart sounds. Absent: systolic murmur, diastolic murmur, rubs, gallop - GI/Abdominal GI/Abdominal exam: Present: soft, normal bowel sounds. Absent: distended, tenderness, guarding, rebound, rigid, pulsatile mass - Extremities Exam Extremities exam: Present: normal inspection, full ROM, normal capillary refill , pedal edema, other (there is no palpable cord. There is a negative Homans sign). Absent: calf tenderness - Back Exam Back exam: Present: normal inspection, full ROM. Absent: tenderness, CVA tenderness (R), paraspinal tenderness, vertebral tenderness - Neurological Exam Neurological exam: Present: alert, oriented X3, CN II-XII intact, other ( Extraocular movements intact. Tongue midline. No facial droop. Facial sensation intact to light touch in the V1, V2, V3 distribution bilaterally. 5 and 5 strength in 4 extremities.. Sensation is intact to light touch in 4 extremities.). Absent: motor sensory deficit - Psychiatric Psychiatric exam: Present: normal affect, normal mood - Skin Skin exam: Present: warm, dry, intact, normal color. Absent: rash ED Course Vital Signs 12/23/17 12/23/17 12/23/17 18:32 19:13 19:15 Temperature 97.8 F 98.4 F Pulse Rate 74 92 H 107 H Respiratory 18 15 25 H Rate Blood Pressure 110/75 Blood Pressure 98/70 [Right] O2 Sat by Pulse 96 96 96 Oximetry 12/23/17 12/23/17 12/23/17 19:49 20:00 21:00 Temperature Pulse Rate 103 H 97 H Respiratory 26 H 27 H Rate Blood Pressure 103/65 105/55 Blood Pressure [Right] O2 Sat by Pulse 96 95 Oximetry 12/23/17 22:00 Temperature Pulse Rate 98 H Respiratory 32 H Rate Blood Pressure 126/77 Blood Pressure [Right] O2 Sat by Pulse 95 Oximetry - Reevaluation(s) Reevaluation #1: 12/23/17 19:12 Differential diagnosis, including but not limited to: Resolved A. fib, pneumonia , acute coronary syndrome, pulmonary embolus, right ventricular dysfunction, natural history of obesity/obesity hypoventilation syndrome/sarcoid, Assessment and plan: 37-year-old female with clinically resolved A. fib with RVR. She is currently tachycardic. She does not have pulmonary embolus or DVT risk factors and the patient is low risk by well's criteria. She does not clinically sound by overloaded, most likely, the patient's presentation is a natural progression and history of her underlying chronic medical conditions. She is saturating well on supplemental oxygen. Plan is to give trial bolus of IV fluids, check basic laboratory studies including d-dimer, EKG, and reassess. Patient low risk by heart score, low risk by SHUBHAM score. Reevaluation #2: 12/23/17 19:28 Heart rate now 106. Hyperglycemia and leukocytosis appreciated. Both of these are likely secondary to chronic steroid administration. IV fluids, insulin ordered. Repeat EKG is pending. Reevaluation #3: 12/23/17 20:18 Heart rate now 10 2 bpm. D-dimer negative. Laboratory studies thus far unremarkable. X-ray of the chest some stretch chronic interstitial lung disease. Reevaluation #4: 12/23/17 22:54 Troponin is negative. Continues to saturate well on supplemental oxygen. When the patient ambulates, she does become somewhat tachycardic and a little bit short of breath, however I believe this is the chronic natural progression of her chronic lung disease. She recently had an echocardiogram, and I do not believe she requires readmission to the hospital at this time. She will need to follow-up with outpatient cardiology and pulmonology. ED Medical Decision Making - Lab Data Result diagrams: 12/23/17 18:38 12/23/17 18:38 Vital Signs 12/23/17 18:32 Temperature 97.8 F Pulse Rate 74 Respiratory 18 Rate Blood Pressure 110/75 O2 Sat by Pulse 96 Oximetry Lab Results 12/23/17 12/23/17 12/23/17 Range/Units 18:38 18:38 19:00 WBC 18.1 H (4.5-11.0) K/mm3 RBC 5.26 H (3.65-5.03) M/mm3 Hgb 13.2 (10.1-14.3) gm/dl Hct 42.6 (30.3-42.9) % MCV 81 (79-97) fl MCH 25 L (28-32) pg MCHC 31 (30-34) % RDW 16.6 H (13.2-15.2) % Plt Count 245 (140-440) K/mm3 Lymph % (Auto) 20.8 (13.4-35.0) % Clinch % (Auto) 4.4 (0.0-7.3) % Eos % (Auto) 0.2 (0.0-4.3) % Baso % (Auto) 0.2 (0.0-1.8) % Lymph # 3.8 (1.2-5.4) K/mm3 Clinch # 0.8 (0.0-0.8) K/mm3 Eos # 0.0 (0.0-0.4) K/mm3 Baso # 0.0 (0.0-0.1) K/mm3 Seg Neutrophils % 74.4 H (40.0-70.0) % Seg Neutrophils # 13.5 H (1.8-7.7) K/mm3 PT (12.2-14.9) Sec. INR (0.87-1.13) D-Dimer (0-234) ng/mlDDU Sodium 135 L (137-145) mmol/L Potassium 5.4 H (3.6-5.0) mmol/L Chloride 91.7 L (98-107) mmol/L Carbon Dioxide 27 (22-30) mmol/L Anion Gap 22 mmol/L BUN 28 H (7-17) mg/dL Creatinine 1.2 (0.7-1.2) mg/dL Estimated GFR > 60 ml/min BUN/Creatinine Ratio 23 % Glucose 553 H* (65-100) mg/dL POC Glucose (70-105) Calcium 9.1 (8.4-10.2) mg/dL Magnesium 1.70 (1.7-2.3) mg/dL Troponin T < 0.010 (0.00-0.029) ng/mL NT-Pro-B Natriuret Pep (0-450) pg/mL TSH (0.270-4.200) mlU/mL Free T4 (0.76-1.46) ng/dL HCG, Quant (0-4) mIU/mL 12/23/17 12/23/17 12/23/17 Range/Units 19:00 19:00 19:00 WBC (4.5-11.0) K/mm3 RBC (3.65-5.03) M/mm3 Hgb (10.1-14.3) gm/dl Hct (30.3-42.9) % MCV (79-97) fl MCH (28-32) pg MCHC (30-34) % RDW (13.2-15.2) % Plt Count (140-440) K/mm3 Lymph % (Auto) (13.4-35.0) % Clinch % (Auto) (0.0-7.3) % Eos % (Auto) (0.0-4.3) % Baso % (Auto) (0.0-1.8) % Lymph # (1.2-5.4) K/mm3 Clinch # (0.0-0.8) K/mm3 Eos # (0.0-0.4) K/mm3 Baso # (0.0-0.1) K/mm3 Seg Neutrophils % (40.0-70.0) % Seg Neutrophils # (1.8-7.7) K/mm3 PT (12.2-14.9) Sec. INR (0.87-1.13) D-Dimer (0-234) ng/mlDDU Sodium (137-145) mmol/L Potassium (3.6-5.0) mmol/L Chloride (98-107) mmol/L Carbon Dioxide (22-30) mmol/L Anion Gap mmol/L BUN (7-17) mg/dL Creatinine (0.7-1.2) mg/dL Estimated GFR ml/min BUN/Creatinine Ratio % Glucose (65-100) mg/dL POC Glucose (70-105) Calcium (8.4-10.2) mg/dL Magnesium (1.7-2.3) mg/dL Troponin T (0.00-0.029) ng/mL NT-Pro-B Natriuret Pep (0-450) pg/mL TSH 0.238 L (0.270-4.200) mlU/mL Free T4 1.43 (0.76-1.46) ng/dL HCG, Quant < 2 (0-4) mIU/mL 12/23/17 12/23/17 12/23/17 Range/Units 19:00 19:07 19:37 WBC (4.5-11.0) K/mm3 RBC (3.65-5.03) M/mm3 Hgb (10.1-14.3) gm/dl Hct (30.3-42.9) % MCV (79-97) fl MCH (28-32) pg MCHC (30-34) % RDW (13.2-15.2) % Plt Count (140-440) K/mm3 Lymph % (Auto) (13.4-35.0) % Clinch % (Auto) (0.0-7.3) % Eos % (Auto) (0.0-4.3) % Baso % (Auto) (0.0-1.8) % Lymph # (1.2-5.4) K/mm3 Clinch # (0.0-0.8) K/mm3 Eos # (0.0-0.4) K/mm3 Baso # (0.0-0.1) K/mm3 Seg Neutrophils % (40.0-70.0) % Seg Neutrophils # (1.8-7.7) K/mm3 PT 11.9 L (12.2-14.9) Sec. INR 0.84 L (0.87-1.13) D-Dimer < 135.00 (0-234) ng/mlDDU Sodium (137-145) mmol/L Potassium (3.6-5.0) mmol/L Chloride (98-107) mmol/L Carbon Dioxide (22-30) mmol/L Anion Gap mmol/L BUN (7-17) mg/dL Creatinine (0.7-1.2) mg/dL Estimated GFR ml/min BUN/Creatinine Ratio % Glucose (65-100) mg/dL POC Glucose 441 H (70-105) Calcium (8.4-10.2) mg/dL Magnesium (1.7-2.3) mg/dL Troponin T (0.00-0.029) ng/mL NT-Pro-B Natriuret Pep 25.30 (0-450) pg/mL TSH (0.270-4.200) mlU/mL Free T4 (0.76-1.46) ng/dL HCG, Quant (0-4) mIU/mL - EKG Data -: EKG Interpreted by Me EKG shows normal: sinus rhythm - EKG Data 12/23/17 20:21 EKG #1 demonstrated atrial fibrillation, rapid ventricular response, 161 bpm, QTC prolonged. EKG #2 demonstrates sinus tachycardia, 102 bpm, motion artifact, normal intervals, normal axis. It is not consistent with a STEMI. - Radiology Data Radiology results: image reviewed interpreted by me: X-ray of the chest, interpreted by myself: Chronic interstitial process, no acute disease. Critical care attestation.: If time is entered above; I have spent that time in minutes in the direct care of this critically ill patient, excluding procedure time. ED Disposition Clinical Impression: Interstitial lung disease, Acute hyperglycemia, Dyspnea Disposition: DC-01 TO HOME OR SELFCARE Is pt being admited?: No Does the pt Need Aspirin: No Condition: Good Instructions: Dyspnea (ED) Additional Instructions: Continue current outpatient medications. Follow up with her pulmonary doctor within the next week. Follow up with the primary care doctor or cabin cleaner within the next 10 days. Return to the ER right away with fevers, chills, lethargy, irritability, projectile vomiting, change in mental status, confusion , inability to tolerate liquid feeds. Referrals: PRIMARY CARE, [Primary Care Provider] - 3-5 Days EMELIA HAMLIN MD [Staff Physician] - 3-5 Days [facility] [Provider Group] - 3-5 Days
[2017-12-23 19:09] LABS: BUN/Creatinine Ratio 23; Blood Urea Nitrogen 28 mg/dL (7-17); Calcium 9.1 mg/dL (8.4-10.2); Hemolysis Index 18
[2017-12-23 19:10] LABS: Hemoglobin 13.2 gm/dl (10.1-14.3)
[2017-12-23 19:11] LABS: Hematocrit 42.6 % (30.3-42.9); Mean Corpuscular Hemoglobin 25 pg (28-32)
[2017-12-23 19:24] LABS: INR 0.84 (0.87-1.13)
[2017-12-23] MEDS: HumuLIN R IV ONE (19:44)
[2017-12-23] MEDS: TORADOL IV ONE (19:44)
[2017-12-23] MEDS: NACL 0.9% 500 ML 500 ML IV ONE (19:44)
[2017-12-23] MEDS: NACL 0.9% 250ML 250 ML IV ONE (19:45)
--- NOTE | 2017-12-23 21:17 | XRay Report ---
FINAL REPORT EXAM: XR CHEST ROUTINE 2V HISTORY: cp sob TECHNIQUE: Frontal and lateral chest x-ray. PRIORS: 01 September 2059. FINDINGS: Cardiac and mediastinal silhouette within normal limits. Lungs are normally expanded, with patchy, but diffuse and mostly reticular opacities scattered throughout both lung, about the same. No new consolidation, pleural effusion or apparent pneumothorax. Bony thorax grossly unremarkable. IMPRESSION: 1. Chronic postinflammatory change, interstitial lung disease or scarring similar to comparison. 2. No acute consolidation.
[2017-12-23 23:13] VITALS: BP 131/87
== END 2017-12-23 23:14 | disposition home or self-care (01) ==
LOC: ED 18:24
DX: E11.65 Type 2 diabetes mellitus with hyperglycemia (principal); R06.02 Shortness of breath; J84.9 Interstitial pulmonary disease, unspecified; I10 Essential (primary) hypertension
CPT/HCPCS: 36415; 71046; 80048; 82962; 83735; 83880; 84439; 84443; 84484; 84702; 85025; 85379; 85610; 96374; 96375; 99284; J1885; J7040; 93005; 93010; J1815

== ENCOUNTER 2018-10-01 02:09 | Inpatient (IN) | payer SELFPAY ==
--- NOTE | 2018-10-01 03:32 | Emergency Department Report ---
ED Shortness of Breath HPI - General Chief Complaint: Dyspnea/Respdistress Stated Complaint: DIFFICULTY IN BREATHING Time Seen by Provider: 10/01/18 03:32 Source: patient Mode of arrival: Ambulatory Limitations: No Limitations - History of Present Illness MD Complaint: shortness of breath -: Gradual, days(s) (3 days.) Improves With: oxygen Worsens With: exertion Known History Of: congestive heart failure Associated Symptoms: palpitations Treatments Prior to Arrival: oxygen - Related Data Home Oxygen Therapy: Yes Home Medications Medication Instructions Recorded Confirmed Last Taken Aspirin 81 mg PO DAILY 12/22/16 10/01/18 09/30/18 Torsemide [Demadex] 20 mg PO BID 10/01/18 10/01/18 09/28/18 glipiZIDE [Glipizide] 10 mg PO BID 10/01/18 10/01/18 09/28/18 predniSONE [Deltasone] 20 mg PO QDAY 10/01/18 10/01/18 09/28/18 Previous Rx's Medication Instructions Recorded Last Taken Type Insulin NPH/Regular [NovoLIN 70/30] 50 unit SUB-Q BIDDIAB units 08/24/17 09/30/18 Rx Metoprolol [Lopressor TAB] 75 mg PO BID #60 tablet 08/24/17 09/28/18 Rx Allergies Allergy/AdvReac Type Severity Reaction Status Date / Time No Known Allergies Allergy Verified 12/22/16 10:19 ED Review of Systems ROS: Stated complaint: DIFFICULTY IN BREATHING Other details as noted in HPI Comment: All other systems reviewed and negative Constitutional: denies: chills, fever Eyes: denies: eye pain, eye discharge, vision change ENT: denies: ear pain, throat pain Respiratory: shortness of breath, SOB with exertion. denies: cough, wheezing Cardiovascular: edema. denies: chest pain, palpitations Endocrine: no symptoms reported Gastrointestinal: denies: abdominal pain, nausea, diarrhea Genitourinary: denies: urgency, dysuria, discharge Musculoskeletal: denies: back pain, joint swelling, arthralgia Skin: denies: rash, lesions Neurological: denies: headache, weakness, paresthesias Psychiatric: denies: anxiety, depression Hematological/Lymphatic: denies: easy bleeding, easy bruising ED Past Medical Hx - Past Medical History Previous Medical History?: Yes Hx Hypertension: Yes Hx CVA: No Hx Heart Attack/AMI: No Hx Congestive Heart Failure: No Hx Diabetes: Yes Hx Deep Vein Thrombosis: No Hx Pulmonary Embolism: No Hx Asthma: No Hx COPD: No Hx Tuberculosis: No Hx HIV: No Additional medical history: Sarcoidosis, Home 02 2-4L. Afib - Surgical History Past Surgical History?: Yes Hx Coronary Stent: No Hx Pacemaker: No Additional Surgical History: x3 - Social History Smoking Status: Former Smoker Substance Use Type: None - Medications Home Medications: Home Medications Medication Instructions Recorded Confirmed Last Taken Type Aspirin 81 mg PO DAILY 12/22/16 10/01/18 09/30/18 History Insulin NPH/Regular [NovoLIN 70/30] 50 unit SUB-Q BIDDIAB units 08/24/17 10/01/18 09/30/18 Rx Metoprolol [Lopressor TAB] 75 mg PO BID #60 tablet 08/24/17 10/01/18 09/28/18 Rx Torsemide [Demadex] 20 mg PO BID 10/01/18 10/01/18 09/28/18 History glipiZIDE [Glipizide] 10 mg PO BID 10/01/18 10/01/18 09/28/18 History predniSONE [Deltasone] 20 mg PO QDAY 10/01/18 10/01/18 09/28/18 History ED Physical Exam - General Limitations: No Limitations General appearance: alert, in no apparent distress - Head Head exam: Present: atraumatic, normocephalic - Eye Eye exam: Present: normal appearance, PERRL, EOMI Pupils: Present: normal accommodation - ENT ENT exam: Present: normal exam, normal orophraynx, mucous membranes moist - Neck Neck exam: Present: normal inspection, full ROM. Absent: tenderness - Respiratory Respiratory exam: Present: normal lung sounds bilaterally, wheezes. Absent: respiratory distress - Cardiovascular Cardiovascular Exam: Present: regular rate, normal rhythm, normal heart sounds. Absent: systolic murmur, diastolic murmur, rubs, gallop - GI/Abdominal GI/Abdominal exam: Present: soft, normal bowel sounds. Absent: distended, tenderness - Extremities Exam Extremities exam: Present: normal inspection, full ROM, normal capillary refill - Back Exam Back exam: Present: normal inspection, full ROM - Neurological Exam Neurological exam: Present: alert, oriented X3, CN II-XII intact - Psychiatric Psychiatric exam: Present: normal affect, normal mood - Skin Skin exam: Present: warm, dry, intact, normal color. Absent: rash ED Course Vital Signs 10/01/18 10/01/18 10/01/18 02:48 04:06 04:15 Temperature 97.9 F Pulse Rate 125 H Respiratory 20 21 30 H Rate Blood Pressure 206/115 161/99 Blood Pressure [Left] O2 Sat by Pulse 88 95 Oximetry 10/01/18 10/01/18 10/01/18 04:30 04:45 04:47 Temperature Pulse Rate Respiratory 21 29 H 19 Rate Blood Pressure 140/82 164/93 Blood Pressure [Left] O2 Sat by Pulse 95 97 98 Oximetry 10/01/18 10/01/18 10/01/18 05:01 05:15 05:30 Temperature Pulse Rate 101 H Respiratory 30 H 33 H Rate Blood Pressure 164/93 164/93 137/86 Blood Pressure [Left] O2 Sat by Pulse 95 97 95 Oximetry 10/01/18 10/01/18 05:45 06:30 Temperature 98.2 F Pulse Rate 98 H Respiratory 14 22 Rate Blood Pressure 137/86 Blood Pressure 138/86 [Left] O2 Sat by Pulse 93 97 Oximetry - Consultations Consultation #1: 10/01/18 06:40 Dr Coleman to admit patient. ED Medical Decision Making - Lab Data Result diagrams: 10/01/18 03:49 10/01/18 03:49 Lab Results 10/01/18 10/01/18 10/01/18 Range/Units 02:56 03:49 03:49 WBC 12.8 H (4.5-11.0) K/mm3 RBC 4.98 (3.65-5.03) M/mm3 Hgb 13.0 (10.1-14.3) gm/dl Hct 41.3 (30.3-42.9) % MCV 83 (79-97) fl MCH 26 L (28-32) pg MCHC 32 (30-34) % RDW 15.3 H (13.2-15.2) % Plt Count 71 L (140-440) K/mm3 Lymph % (Auto) 26.1 (13.4-35.0) % Butler % (Auto) 8.7 H (0.0-7.3) % Eos % (Auto) 1.1 (0.0-4.3) % Baso % (Auto) 1.1 (0.0-1.8) % Lymph # 3.3 (1.2-5.4) K/mm3 Butler # 1.1 H (0.0-0.8) K/mm3 Eos # 0.1 (0.0-0.4) K/mm3 Baso # 0.1 (0.0-0.1) K/mm3 Seg Neutrophils % 63.0 (40.0-70.0) % Seg Neutrophils # 8.1 H (1.8-7.7) K/mm3 PT (12.2-14.9) Sec. INR (0.87-1.13) APTT (24.2-36.6) Sec. D-Dimer (0-234) ng/mlDDU POC ABG pH (7.35-7.45) POC ABG pCO2 (35-45) POC ABG pO2 (80-105) POC ABG HCO3 POC ABG Total CO2 POC ABG O2 Sat POC ABG Base Excess FiO2 % Sodium 137 (137-145) mmol/L Potassium 4.7 (3.6-5.0) mmol/L Chloride 95.2 L (98-107) mmol/L Carbon Dioxide 28 (22-30) mmol/L Anion Gap 19 mmol/L BUN 12 (7-17) mg/dL Creatinine 0.6 L (0.7-1.2) mg/dL Estimated GFR > 60 ml/min BUN/Creatinine Ratio 20 % Glucose 299 H (65-100) mg/dL POC Glucose 325 H (70-105) Calcium 9.6 (8.4-10.2) mg/dL Magnesium 1.60 L (1.7-2.3) mg/dL Total Bilirubin 0.20 (0.1-1.2) mg/dL AST 46 H (5-40) units/L ALT 22 (7-56) units/L Alkaline Phosphatase 75 (35-129) units/L Total Creatine Kinase (30-135) units/L CK-MB (CK-2) (0.0-4.0) ng/mL CK-MB (CK-2) Rel Index (0-4) Troponin T (0.00-0.029) ng/mL NT-Pro-B Natriuret Pep 5.00 (0-450) pg/mL Total Protein 7.7 (6.3-8.2) g/dL Albumin 3.7 L (3.9-5) g/dL Albumin/Globulin Ratio 0.9 % Urine Color (Yellow) Urine Turbidity (Clear) Urine pH (5.0-7.0) Ur Specific Herman (1.003-1.030) Urine Protein (Negative) mg/dL Urine Glucose (UA) (Negative) mg/dL Urine Ketones (Negative) mg/dL Urine Blood (Negative) Urine Nitrite (Negative) Urine Bilirubin (Negative) Urine Urobilinogen (<2.0) mg/dL Ur Leukocyte Esterase (Negative) Urine WBC (Auto) (0.0-6.0) /HPF Urine RBC (Auto) (0.0-6.0) /HPF U Epithel Cells (Auto) (0-13.0) /HPF Urine HCG, Qual (Negative) 10/01/18 10/01/18 10/01/18 Range/Units 03:49 03:49 05:05 WBC (4.5-11.0) K/mm3 RBC (3.65-5.03) M/mm3 Hgb (10.1-14.3) gm/dl Hct (30.3-42.9) % MCV (79-97) fl MCH (28-32) pg MCHC (30-34) % RDW (13.2-15.2) % Plt Count (140-440) K/mm3 Lymph % (Auto) (13.4-35.0) % Butler % (Auto) (0.0-7.3) % Eos % (Auto) (0.0-4.3) % Baso % (Auto) (0.0-1.8) % Lymph # (1.2-5.4) K/mm3 Butler # (0.0-0.8) K/mm3 Eos # (0.0-0.4) K/mm3 Baso # (0.0-0.1) K/mm3 Seg Neutrophils % (40.0-70.0) % Seg Neutrophils # (1.8-7.7) K/mm3 PT 12.6 (12.2-14.9) Sec. INR 0.89 (0.87-1.13) APTT 20.0 L (24.2-36.6) Sec. D-Dimer 395.27 H (0-234) ng/mlDDU POC ABG pH (7.35-7.45) POC ABG pCO2 (35-45) POC ABG pO2 (80-105) POC ABG HCO3 POC ABG Total CO2 POC ABG O2 Sat POC ABG Base Excess FiO2 % Sodium (137-145) mmol/L Potassium (3.6-5.0) mmol/L Chloride (98-107) mmol/L Carbon Dioxide (22-30) mmol/L Anion Gap mmol/L BUN (7-17) mg/dL Creatinine (0.7-1.2) mg/dL Estimated GFR ml/min BUN/Creatinine Ratio % Glucose (65-100) mg/dL POC Glucose (70-105) Calcium (8.4-10.2) mg/dL Magnesium (1.7-2.3) mg/dL Total Bilirubin (0.1-1.2) mg/dL AST (5-40) units/L ALT (7-56) units/L Alkaline Phosphatase (35-129) units/L Total Creatine Kinase 128 (30-135) units/L CK-MB (CK-2) 1.8 (0.0-4.0) ng/mL CK-MB (CK-2) Rel Index 1.4 (0-4) Troponin T < 0.010 (0.00-0.029) ng/mL NT-Pro-B Natriuret Pep (0-450) pg/mL Total Protein (6.3-8.2) g/dL Albumin (3.9-5) g/dL Albumin/Globulin Ratio % Urine Color Straw (Yellow) Urine Turbidity Clear (Clear) Urine pH 6.0 (5.0-7.0) Ur Specific Herman 1.013 (1.003-1.030) Urine Protein <15 mg/dl (Negative) mg/dL Urine Glucose (UA) >=500 (Negative) mg/dL Urine Ketones Neg (Negative) mg/dL Urine Blood Neg (Negative) Urine Nitrite Neg (Negative) Urine Bilirubin Neg (Negative) Urine Urobilinogen < 2.0 (<2.0) mg/dL Ur Leukocyte Esterase Neg (Negative) Urine WBC (Auto) 1.0 (0.0-6.0) /HPF Urine RBC (Auto) 1.0 (0.0-6.0) /HPF U Epithel Cells (Auto) < 1.0 (0-13.0) /HPF Urine HCG, Qual Negative (Negative) 10/01/18 Range/Units 06:11 WBC (4.5-11.0) K/mm3 RBC (3.65-5.03) M/mm3 Hgb (10.1-14.3) gm/dl Hct (30.3-42.9) % MCV (79-97) fl MCH (28-32) pg MCHC (30-34) % RDW (13.2-15.2) % Plt Count (140-440) K/mm3 Lymph % (Auto) (13.4-35.0) % Butler % (Auto) (0.0-7.3) % Eos % (Auto) (0.0-4.3) % Baso % (Auto) (0.0-1.8) % Lymph # (1.2-5.4) K/mm3 Butler # (0.0-0.8) K/mm3 Eos # (0.0-0.4) K/mm3 Baso # (0.0-0.1) K/mm3 Seg Neutrophils % (40.0-70.0) % Seg Neutrophils # (1.8-7.7) K/mm3 PT (12.2-14.9) Sec. INR (0.87-1.13) APTT (24.2-36.6) Sec. D-Dimer (0-234) ng/mlDDU POC ABG pH 7.463 H (7.35-7.45) POC ABG pCO2 44.6 (35-45) POC ABG pO2 63 L (80-105) POC ABG HCO3 32.0 POC ABG Total CO2 33 POC ABG O2 Sat 93 POC ABG Base Excess 8 FiO2 28 % Sodium (137-145) mmol/L Potassium (3.6-5.0) mmol/L Chloride (98-107) mmol/L Carbon Dioxide (22-30) mmol/L Anion Gap mmol/L BUN (7-17) mg/dL Creatinine (0.7-1.2) mg/dL Estimated GFR ml/min BUN/Creatinine Ratio % Glucose (65-100) mg/dL POC Glucose (70-105) Calcium (8.4-10.2) mg/dL Magnesium (1.7-2.3) mg/dL Total Bilirubin (0.1-1.2) mg/dL AST (5-40) units/L ALT (7-56) units/L Alkaline Phosphatase (35-129) units/L Total Creatine Kinase (30-135) units/L CK-MB (CK-2) (0.0-4.0) ng/mL CK-MB (CK-2) Rel Index (0-4) Troponin T (0.00-0.029) ng/mL NT-Pro-B Natriuret Pep (0-450) pg/mL Total Protein (6.3-8.2) g/dL Albumin (3.9-5) g/dL Albumin/Globulin Ratio % Urine Color (Yellow) Urine Turbidity (Clear) Urine pH (5.0-7.0) Ur Specific Herman (1.003-1.030) Urine Protein (Negative) mg/dL Urine Glucose (UA) (Negative) mg/dL Urine Ketones (Negative) mg/dL Urine Blood (Negative) Urine Nitrite (Negative) Urine Bilirubin (Negative) Urine Urobilinogen (<2.0) mg/dL Ur Leukocyte Esterase (Negative) Urine WBC (Auto) (0.0-6.0) /HPF Urine RBC (Auto) (0.0-6.0) /HPF U Epithel Cells (Auto) (0-13.0) /HPF Urine HCG, Qual (Negative) - EKG Data -: EKG Interpreted by Me Rate: tachycardia - EKG Data When compared to previous EKG there are: previous EKG unavailable 10/01/18 06:36 Atrial Flutter with 2:1 AV block. No STEMI. - Radiology Data Radiology results: report reviewed, image reviewed CXR showed no infiltrate. - Medical Decision Making CHF exacerbation. Atrial Flutter. Critical care attestation.: If time is entered above; I have spent that time in minutes in the direct care of this critically ill patient, excluding procedure time. ED Disposition Clinical Impression: Morbid obesity with BMI of 40.0-44.9, adult, Atrial flutter with rapid ventricular response, Hypoxia Diabetes mellitus type 2, uncontrolled Qualifiers: Glycemic state: with hyperglycemia Qualified Code(s): E11.65 - Type 2 diabetes mellitus with hyperglycemia CHF exacerbation Qualifiers: Heart failure type: unspecified Qualified Code(s): I50.9 - Heart failure, unspecified Disposition: 09 OP ADMIT IP TO THIS HOSP Is pt being admited?: Yes Does the pt Need Aspirin: No Condition: Stable Instructions: Diabetes Mellitus Type 2 in Adults (ED) Referrals: KELSEY DAVIS MD [Primary Care Provider] - 3-5 Days Time of Disposition: 06:45
--- NOTE | 2018-10-01 03:40 | XRay Report ---
FINAL REPORT PROCEDURE: XR CHEST ROUTINE 2V TECHNIQUE: PA and lateral chest radiographs were obtained. CPT 61636 HISTORY: LUIS ENRIQUE COMPARISON: 12/23/2020 FINDINGS: Heart: Normal. Mediastinum/Vessels: Normal. Lungs/Pleural space: There are patchy reticular opacities scattered throughout both lungs. This has n ot changed. No acute infiltrate or effusion is seen. Bony thorax: No acute osseous abnormality. Other: IMPRESSION: Reticular patchy opacities scattered throughout both lungs are not changed. This is most consistent w ith scarring. No acute infiltrate or effusion..
[2018-10-01] MEDS ORDERED: LASIX IV ONE (03:41)
[2018-10-01] MEDS ORDERED: NORMODYNE IV ONE (03:41)
[2018-10-01 04:41] LABS: Basophils # (Auto) 0.1 K/mm3 (0.0-0.1); Basophils % (Auto) 1.1 % (0.0-1.8); Eosinophils # (Auto) 0.1 K/mm3 (0.0-0.4); Eosinophils % (Auto) 1.1 % (0.0-4.3); Hematocrit 41.3 % (30.3-42.9); Lymphocytes # (Auto) 3.3 K/mm3 (1.2-5.4); Lymphocytes % (Auto) 26.1 % (13.4-35.0); Mean Corpuscular HGB Conc 32 % (30-34); Mean Corpuscular Volume 83 fl (79-97); Monocytes # (Auto) 1.1 K/mm3 (0.0-0.8); Monocytes % (Auto) 8.7 % (0.0-7.3); Red Blood Count 4.98 M/mm3 (3.65-5.03); Red Cell Distribution Width 15.3 % (13.2-15.2)
[2018-10-01 04:42] LABS: Platelet Count 71 K/mm3 (140-440)
[2018-10-01 05:06] LABS: Creatine Kinase MB 1.8 ng/mL (0.0-4.0)
[2018-10-01 05:15] LABS: INR 0.89 (0.87-1.13)
[2018-10-01 05:40] LABS: Bilirubin,Urine NEG (Negative); Blood,Urine NEG (Negative); Color,Urine Straw (Yellow); Protein,Urine <15 mg/dL mg/dL (Negative); Urobilinogen,Urine < 2.0 mg/dL (<2.0)
[2018-10-01 05:48] LABS: HCG Qualitative,Urine Negative (Negative)
[2018-10-01 06:12] LABS: Albumin 3.7 g/dL (3.9-5); BUN/Creatinine Ratio 20; Blood Urea Nitrogen 12 mg/dL (7-17); Calcium 9.6 mg/dL (8.4-10.2); Hemolysis Index 315
[2018-10-01 06:30] LABS: Alanine Aminotransferase 22 units/L (7-56)
[2018-10-01] MEDS ORDERED: GLUCOTROL PO ONE (06:47)
--- NOTE | 2018-10-01 08:29 | History and Physical Report ---
History of Present Illness Date of examination: 10/01/18 Date of admission: 10/01/18 06:45 Chief complaint: Shortness of breath, generalized swelling. History of present illness: Patient is a 38-year-old lady was a history of pulmonary sarcoidosis, hypoxia and on 2 L of oxygen at home, diabetes mellitus, hypertension and morbid obesity was out of her medications about a week ago primary care doctor wanted to see before a refill. She had problems with a short rest she stated. She progressive notices that she was becoming short of breath on slight exertion and was swelling all over. Denies any chest pain, orthopnea or paroxysmal nocturnal dyspnea. No fever. Came to the emergency department where chest x-ray shows evidence of pulmonary congestion with no infiltrates. BNP was normal. Had tachycardia with EKG showing evidence of atrial flutter. Also had hypoxia on ABG. Admission was requested Past History Past Medical History: diabetes, hypertension, sarcoidosis Past Surgical History: No surgical history Social history: denies: smoking, alcohol abuse, prescription drug abuse Family history: diabetes Medications and Allergies Allergies Allergy/AdvReac Type Severity Reaction Status Date / Time No Known Allergies Allergy Verified 12/22/16 10:19 Home Medications Medication Instructions Recorded Confirmed Last Taken Type Aspirin 81 mg PO DAILY 12/22/16 10/01/18 09/30/18 History Insulin NPH/Regular [NovoLIN 70/30] 50 unit SUB-Q BIDDIAB units 08/24/17 10/01/18 09/30/18 Rx Metoprolol [Lopressor TAB] 75 mg PO BID #60 tablet 08/24/17 10/01/18 09/28/18 Rx Torsemide [Demadex] 20 mg PO BID 10/01/18 10/01/18 09/28/18 History glipiZIDE [Glipizide] 10 mg PO BID 10/01/18 10/01/18 09/28/18 History predniSONE [Deltasone] 20 mg PO QDAY 10/01/18 10/01/18 09/28/18 History Active Meds: Active Medications Albuterol/Ipratropium (Duoneb *Not For Prn Use*) 1 ampul IH QIDRT [facility] Aspirin (Baby Aspirin) 81 mg PO DAILY [facility] Budesonide (Pulmicort) 0.25 mg IH Q12HRT [facility] Enoxaparin Sodium (Lovenox) 40 mg SUB-Q QDAY [facility] Furosemide (Lasix) 40 mg IV QDAY [facility] Insulin Human Isoph/Insulin Regular (Humulin 70/30) 50 unit SUB-Q BIDDIAB [facility] Metoprolol Tartrate (Lopressor) 75 mg PO BID [facility] Potassium Chloride (K-Dur) 30 meq PO QDAY [facility] Prednisone (Deltasone) 20 mg PO QDAY [facility] Review of systems Constitutional: Well Nourished and Well developed. Head: NC/ AT Eyes: Denies any visual impairments. No discharge from the eyes Nose: Denies any rhinorrhea or epistaxis Throats: Denies any post nasal drainage. Ears: Denies any hearing deficits Cardiovascular system: Denies any chest pain, shortness of breath, orthopnea, paroxysmal nocturnal dyspnea, or palpitation. Respiratory system: Has shortness of breath and Cough with difficulty breathing, no wheezing, pleuritic chest pain, Gastrointestinal system: Denies any abdominal pain, nausea vomiting, hematemesis or melena. Neurological system: Denies any headache, slurred speech, facial droop, lateralizing weakness Genitalia system: Denies any dysuria, urinary frequency or urgency, urethral discharge Skin: No rashes, hyperpigmented spots. Hematological: Denies any cervical tenderness hemorrhages or petechia. Immunological: Denies any multiple septic spots, Extremities: Swelling Lymphatic: Denies any generalized lymphadenopathy. Endocrine: Denies any polyuria, polydipsia, polyphagia. No heat or cold intolerance. Musculoskeletal system: No joint pain or swelling. Psych: No visual, tactile, auditory or hallucination Exam - Physical Exam Narrative exam: Constitutional: Morbidly obese with a BMI of 47.0. Well-developed. In no distress Head: Normocephalic atraumatic Eyes: Pupils are equal round and reactive to light Nose: No enlarged turbinates, no septal deviation. Mouth: Moist mucous membranes. Neck: Supple no thyromegaly. No bruit. No JVD Heart: Regular rate and rhythm, S1-S2 normal. No rubs murmurs or gallop Lungs: Decreased breath sounds bilaterally. no rales or rhonchi Abdomen: Soft, nontender. Bowel sound are present. Extremities: edema 2 +, no cyanosis, no clubbing. Neuro: Alert oriented Oriented x3. No focal sensory or motor deficit. Skin: No rashes or hyperpigmented spots Musculoskeletal system: No joint pain or swelling Hematological: No petechia or subcutanous hemorrhages. Immunological: No multiple septic spots on the skin Lymphatic: No generalized lymphadenopathy Psychiatry: Euthymic. Calm. - Constitutional Vitals: Temp Pulse Resp BP Pulse Ox 98.2 F 108 H 18 136/75 97 10/01/18 08:00 10/01/18 08:00 10/01/18 08:00 10/01/18 08:00 10/01/18 08:00 Results - Labs CBC & Chem 7: 10/01/18 03:49 10/01/18 03:49 Labs: Abnormal lab results 10/01/18 10/01/18 10/01/18 Range/Units 02:56 03:49 03:49 WBC 12.8 H (4.5-11.0) K/mm3 MCH 26 L (28-32) pg RDW 15.3 H (13.2-15.2) % Plt Count 71 L (140-440) K/mm3 [place] % (Auto) 8.7 H (0.0-7.3) % [place] # 1.1 H (0.0-0.8) K/mm3 Seg Neutrophils # 8.1 H (1.8-7.7) K/mm3 APTT (24.2-36.6) Sec. D-Dimer (0-234) ng/mlDDU POC ABG pH (7.35-7.45) POC ABG pO2 (80-105) Chloride 95.2 L (98-107) mmol/L Creatinine 0.6 L (0.7-1.2) mg/dL Glucose 299 H (65-100) mg/dL POC Glucose 325 H (70-105) Magnesium 1.60 L (1.7-2.3) mg/dL AST 46 H (5-40) units/L Albumin 3.7 L (3.9-5) g/dL 10/01/18 10/01/18 Range/Units 03:49 06:11 WBC (4.5-11.0) K/mm3 MCH (28-32) pg RDW (13.2-15.2) % Plt Count (140-440) K/mm3 [place] % (Auto) (0.0-7.3) % [place] # (0.0-0.8) K/mm3 Seg Neutrophils # (1.8-7.7) K/mm3 APTT 20.0 L (24.2-36.6) Sec. D-Dimer 395.27 H (0-234) ng/mlDDU POC ABG pH 7.463 H (7.35-7.45) POC ABG pO2 63 L (80-105) Chloride (98-107) mmol/L Creatinine (0.7-1.2) mg/dL Glucose (65-100) mg/dL POC Glucose (70-105) Magnesium (1.7-2.3) mg/dL AST (5-40) units/L Albumin (3.9-5) g/dL Assessment and Plan - Chronic respiratory failure Continue oxygen supplementation. Patient is on 2 L AT home. DuoNeb, Pulmicort, IV Levaquin Continue by mouth Solu-Medrol - Pulmonary sarcoidosis Continue with DuoNeb, oxygen supplementation, PO prednisone. We'll hold off on IV Solu-Medrol as this may worsen her diabetes compared to current 20 mg prednisone Contract Loader consult - Shortness of breath Most likely secondary to #1 above However we'll obtain CT angiogram of the lungs to rule out any pulmonary embolism given her multiple risk factors We will also obtain an echocardiogram to rule out any cor pulmonale - Diabetes mellitus Obtain A1c Sliding scale insulin Consistent divided diet - Morbid obesity Dietary control -DVT prophylaxis with Lovenox and GI with Pepcid -Disposition: Stabilize patient's respiratory status and discharged home Time spent 40 minutes in direct patient care, review of laboratory and radiological data, explaining care plan to the patient's.
--- NOTE | 2018-10-01 10:12 | Cat Scan Report ---
FINAL REPORT EXAM: CT ANGIO CHEST HISTORY: shortness of breath COMPARISON: CT of the chest performed on 12/22/2016 TECHNIQUE: Multiple contiguous axial images were obtained through the chest after administration of IV contrast. Maximal intensity projection images as well as reformatted sagittal and coronal images w ere available for review. FINDINGS: Medical devices: None. Thyroid: Normal. Lymph nodes: Again seen are prominent lymph nodes in the prevascular, pretracheal, and subcarinal are as of the mediastinum, measuring up to 1.2 centimeters in the prevascular area in short axis and 1.7 centimeters in the subcarinal region. Again seen are enlarged right hilar lymph nodes measuring up to 1.3 centimeters in short axis and prominent left hilar lymph nodes measuring up to 9 millimeters in short axis. Vasculature: No filling defect within the pulmonary artery to suggest pulmonary embolism. Normal amelia rosamaria of the thoracic aorta with a conventional branching pattern of the aortic arch. Heart: Normal heart size. Other mediastinal structures: Small hiatal hernia. Lung parenchyma: Stable chronic interstitial changes and central ground-glass opacities Airways: Diffuse cylindrical bronchiectasis throughout both lungs, with some areas of saccular bronch iectasis in the periphery of both lungs. Findings are similar to the previous study. Pleura: No pleural effusion or pneumothorax. Chest wall and spine: No suspicious osseous lesions. No acute fracture or dislocation. Normal soft ti ssues. Upper Abdomen: No acute abnormality. IMPRESSION: 1. No evidence of pulmonary embolism. 2. Stable enlarged mediastinal and hilar lymph nodes. 3. Stable chronic lung disease and bronchiectasis. Recommend clinical correlation.
[2018-10-01] MEDS ORDERED: BABY ASPIRIN ONE (10:30)
[2018-10-01] MEDS ORDERED: LOPRESSOR ONE ×2 (10:31→10:32)
[2018-10-01] MEDS ORDERED: LOVENOX SUB-Q ONE (10:31)
[2018-10-01] MEDS ORDERED: LASIX ONE (10:31)
[2018-10-01] MEDS ORDERED: LEVAQUIN 750MG/150ML 750 MG/150 ML BAG IV ONE (10:31)
[2018-10-01] MEDS ORDERED: K-DUR PO ONE (10:32)
[2018-10-01] MEDS ORDERED: DELTASONE ONE (10:36)
[2018-10-01] MEDS: BABY ASPIRIN PO SCH (10:43)
[2018-10-01] MEDS: K-DUR PO SCH (10:43)
[2018-10-01] MEDS: LASIX IV SCH (10:43)
[2018-10-01] MEDS: DELTASONE PO SCH (10:43)
[2018-10-01] MEDS: LEVAQUIN 750MG/150ML 750 MG/150 ML BAG IV SCH (10:43)
[2018-10-01] MEDS: LOVENOX SUB-Q SCH (10:44)
[2018-10-01] MEDS: LOPRESSOR PO SCH ×2 (10:44→22:21)
[2018-10-01] MEDS: PULMICORT IH SCH ×2 (12:48→19:13)
[2018-10-01] MEDS: DUONEB *Not for PRN Use IH SCH ×3 (12:51→19:13)
[2018-10-01] MEDS ORDERED: DUONEB *Not for PRN Use IH ONE (12:53)
[2018-10-01] MEDS ORDERED: PROVENTIL IH PRN (19:14)
[2018-10-01] MEDS ORDERED: LANTUS SUB-Q SCH (22:00)
[2018-10-02 08:17] VITALS: BP 123/70
[2018-10-02] MEDS: PULMICORT IH SCH (08:32)
[2018-10-02] MEDS: DUONEB *Not for PRN Use IH SCH ×3 (08:32→15:08)
[2018-10-02] MEDS: LEVAQUIN 750MG/150ML 750 MG/150 ML BAG IV SCH (09:09)
[2018-10-02] MEDS: LASIX IV SCH (09:09)
[2018-10-02] MEDS: LOVENOX SUB-Q SCH (09:09)
[2018-10-02] MEDS: K-DUR PO SCH (09:10)
[2018-10-02] MEDS: BABY ASPIRIN PO SCH (09:10)
[2018-10-02] MEDS: LOPRESSOR PO SCH (09:10)
[2018-10-02] MEDS: DELTASONE PO SCH (09:10)
--- NOTE | 2018-10-02 14:47 | Discharge Summary ---
Providers - Providers Date of Admission: 10/01/18 06:45 Date of discharge: 10/02/18 Attending physician: FOREST KOROMA 10/01/18 08:22 Consult to Physician [CONS] Routine Comment: Consulting Provider: YAYA HOUGH Physician Instructions: Reason For Exam: Pulm Sarcoid, Acut merry chronic respiratoyr failure [facility] Reason for admission: Acute on chronic rrespiratory failure, Pulm. Sarcoidosis, DM, Shortnessof b Condition: Stable Pertinent studies: CXR showed pulm chronic lung disease with scaring CTA of the chest showed no PE Procedures: none Hospital course: Patient is a 38-year-old lady was a history of pulmonary sarcoidosis, hypoxia and on 2 L of oxygen at home, diabetes mellitus, hypertension and morbid obesity was out of her medications about a week ago primary care doctor wanted to see before a refill. She had problems with a short rest she stated. She progressive notices that she was becoming short of breath on slight exertion and was swelling all over. Denies any chest pain, orthopnea or paroxysmal nocturnal dyspnea. No fever. Came to the emergency department where chest x- ray shows evidence of pulmonary congestion with no infiltrates. BNP was normal. Had tachycardia with EKG showing evidence of atrial flutter. Also had hypoxia on ABG. Admission was requested. On admission pt was commenced on bronchodilalators with po prednisone adn diuresis. Glycemic control was eith SSI. Symptom improved and pt is able to ambulate without distress. She is requesting to go home today saying she is much better with the diuresis and bronchodilators. She is to f/u with PCP in 3-5 days Disposition: DC- TO HOME OR SELFCARE Time spent for discharge: 35 mins - Discharge Diagnoses (1) Hypoxia Status: Acute (2) Diabetes mellitus type 2, uncontrolled Status: Chronic Qualifiers: Glycemic state: with hyperglycemia Qualified Code(s): E11.65 - Type 2 diabetes mellitus with hyperglycemia (3) Morbid obesity with BMI of 40.0-44.9, adult Status: Chronic (4) Acute and chronic respiratory failure Status: Acute Qualifiers: Respiratory failure complication: hypoxia Qualified Code(s): J96.21 - Acute and chronic respiratory failure with hypoxia Core Measure Documentation - Palliative Care Palliative Care/ Comfort Measures: Not Applicable - Core Measures Any of the following diagnoses?: none Exam - Physical Exam Narrative exam: Constitutional: Morbidly obese with a BMI of 47.0. Well-developed. In no distress Head: Normocephalic atraumatic Eyes: Pupils are equal round and reactive to light Nose: No enlarged turbinates, no septal deviation. Mouth: Moist mucous membranes. Neck: Supple no thyromegaly. No bruit. No JVD Heart: Regular rate and rhythm, S1-S2 normal. No rubs murmurs or gallop Lungs: Decreased breath sounds bilaterally. no rales or rhonchi Abdomen: Soft, nontender. Bowel sound are present. Extremities: edema 2 +, no cyanosis, no clubbing. Neuro: Alert oriented Oriented x3. No focal sensory or motor deficit. Skin: No rashes or hyperpigmented spots Musculoskeletal system: No joint pain or swelling Hematological: No petechia or subcutanous hemorrhages. Immunological: No multiple septic spots on the skin Lymphatic: No generalized lymphadenopathy Psychiatry: Euthymic. Calm. - Constitutional Vitals: Temp Pulse Resp BP Pulse Ox 98.6 F 98 H 18 123/70 90 10/02/18 08:15 10/02/18 11:26 10/02/18 11:26 10/02/18 08:15 10/02/18 08:38 Plan Weight Bearing Status: Weight Bear as Tolerated Diet: regular, diabetic Durable Medical Equipment Needed Upon Discharge: Oxygen Follow up with: MERVAT BRYANTRENTON MD MARCUS [Primary Care Provider] - 3-5 Days Forms: AMA Form Prescriptions: ALBUTEROL NEB's [Proventil 0.083% NEBS] 2.5 mg IH Q4HRT PRN #100 nebu PRN Reason: Shortness Of Breath Aspirin [Aspirin BABY CHEW TAB] 81 mg PO DAILY #30 tab.chew Budesonide [Pulmicort Respules] 0.25 mg IH Q12HRT #60 nebu Enoxaparin [Lovenox] 40 mg SUB-Q QDAY #30 syringe Glimepiride [Amaryl] 4 mg PO BID #60 tablet Ipratropium/Albuterol Sulfate [DUONEB *Not for PRN Use*] 1 ampul IH QIDRT #100 ampul.neb Metoprolol [Lopressor TAB] 75 mg PO BID #30 tablet Potassium Chloride [K-Dur] 30 meq PO QDAY #30 tablet predniSONE [Deltasone] 20 mg PO QDAY #30 tablet Torsemide [Demadex] 20 mg PO BID #60 tablet
== END 2018-10-02 19:33 | disposition home or self-care (01) | DRG 189 ==
LOC: ED 02:09 → 4A 06:45
PROVIDERS: ADMIT Internal Medicine; ATTEND Family Medicine
PROC: 4A033R1 Measurement of Arterial Saturation, Peripheral, Percutaneous Approach (ICD-10-PCS; principal; 2018-10-01)
DX: J96.21 Acute and chronic respiratory failure with hypoxia (principal); I48.92 Unspecified atrial flutter; Z68.41 Body mass index [BMI] 40.0-44.9, adult; I50.9 Heart failure, unspecified; E11.65 Type 2 diabetes mellitus with hyperglycemia; I48.91 Unspecified atrial fibrillation; I11.0 Hypertensive heart disease with heart failure; D86.89 Sarcoidosis of other sites; E66.01 Morbid (severe) obesity due to excess calories; Z79.82 Long term (current) use of aspirin; Z79.899 Other long term (current) drug therapy; Z79.84 Long term (current) use of oral hypoglycemic drugs; Z99.81 Dependence on supplemental oxygen; Z87.891 Personal history of nicotine dependence; Z83.3 Family history of diabetes mellitus
CPT/HCPCS: 36415; 71046; 71275; 80053; 81001; 81025; 82550; 82553; 82803; 82962; 83735; 83880; 84484; 85025; 85379; 85610; 85730; 93005; 93010; 93306; 94640; 94760; 96365; 96366; 96372; 96375; 96376; G0378; J1650; J1815; J1940; J1956; J7512; Q9967

== ENCOUNTER 2018-12-19 17:26 | Emergency (ER) | payer OTHER ==
--- NOTE | 2018-12-19 19:40 | Emergency Department Report ---
Chief Complaint: Upper Respiratory Infection Stated Complaint: SOB Time Seen by Provider: 12/19/18 19:24 - HPI History of Present Illness: sarcoid of lung sat 80's cough chills to main MSE screening note: Focused history and physical exam performed. Due to findings the following was ordered: ED Disposition for MSE Condition: Stable
[2018-12-19 20:17] LABS: Hemoglobin 13.2 gm/dl (10.1-14.3); Mean Corpuscular HGB Conc 32 % (30-34); Mean Corpuscular Volume 82 fl (79-97); Platelet Count 208 K/mm3 (140-440); Red Blood Count 4.97 M/mm3 (3.65-5.03); Red Cell Distribution Width 16.2 % (13.2-15.2)
[2018-12-19 20:29] LABS: Albumin 3.2 g/dL (3.9-5); BUN/Creatinine Ratio 18; Blood Urea Nitrogen 16 mg/dL (7-17); Calcium 9.4 mg/dL (8.4-10.2); Hemolysis Index 297
[2018-12-19 20:32] LABS: Alanine Aminotransferase 23 units/L (7-56)
[2018-12-19] MEDS ORDERED: PROVENTIL IH ONE (21:05)
[2018-12-19] MEDS ORDERED: SOLU-Medrol IV ONE (21:05)
[2018-12-19] MEDS ORDERED: ATROVENT IH ONE (21:05)
[2018-12-19] MEDS ORDERED: TORADOL IV ONE (21:08)
--- NOTE | 2018-12-19 21:19 | XRay Report ---
PROCEDURE: XR CHEST ROUTINE 2V TECHNIQUE: PA and lateral chest radiographs were obtained. HISTORY: COUGH COMPARISONS: None. FINDINGS: Extensive diffuse prominence of interstitial markings with honeycombing is again noted. There are no areas of consolidation. No mass lesions are identified. Pleural spaces are clear. Cardiomediastinal s ilhouette is within normal limits. IMPRESSION: Findings are most consistent with advanced interstitial lung disease. No evidence of any acute pulmonary process. This document is electronically signed by Norberto Shetty MD., Dec 19 2018 09:17:09 PM ET
--- NOTE | 2018-12-20 01:07 | Cat Scan Report ---
PROCEDURE: CT ANGIO CHEST, CT ABDOMEN PELVIS W CON CLINICAL STATEMENT: Shortness of breath, rule out pulmonary embolus. COMPARISON: Several prior studies, most recent CT angiogram dated October 01, 2018. TECHNIQUE: Uneventful IV contrast administration of weight-dependent volume of iodine-based contrast medium (100 mL Omnipaque 350). CTA chest to opacify pulmonary arteries. MPR. Postcontrast imaging of the abdomen and pelvis was performed. Multiplanar reformatted images acquired . CAUTION: Study not optimized for aortic dissection evaluation. Overall image quality is satisfactory. COMMENTS: CHEST: Pulmonary artery embolism: None identified. There is enlargement of the main pulmonary artery. Pneumothorax, consolidation or pleural effusion: Decreased lung volumes. Advanced fibrotic change wit h multiple subpleural and parenchymal cystic areas, multifocal bronchiectasis, thickening of the intr alobular septa and multifocal groundglass opacities. Mediastinum: Multifocal enlarged lymph nodes measure between 1-1 0.5 cm in short axis in the AP windo w, prevascular, subcarinal and paratracheal satnos stations. Cardiomegaly or pericardial effusion: None Sternum, ribs and thoracic spine: Multilevel thoracic degenerative changes. ABDOMEN/PELVIS: LIVER: Homogeneous decreased attenuation and mild enlargement. SPLEEN: Enhances homogeneously. PANCREAS: Demonstrates normal morphology. ADRENAL GLANDS: Maintain their normal shapes and sizes. GALL BLADDER: Distended with bile. BILIARY SYSTEM: There is no significant intra- or extrahepatic biliary dilatation. PORTAL VEIN: Opacifies normally. KIDNEYS: Enhance promptly and symmetrically. No hydronephrosis. GREAT VESSELS: Enhance unremarkably. LYMPH NODES: Scattered, moderately prominent periaortic lymph nodes. Additional lymph nodes versus sp lenules noted in the splenic hilum. VARIABLY OPACIFIED AND DISTENDED BOWEL LOOPS: Unremarkable given the limitation. APPENDIX: Normal appearance. SIGMOID COLON AND RECTUM: Grossly unremarkable. URINARY BLADDER: Distended with urine and without any obvious intravesical mass. INTERNAL GENITAL ORGANS: Present. Tubal ligation clips are noted. A 4.0 cm low-attenuation mass is pr esent within the left ovary, probable cyst. No adjacent inflammatory change. OSSEOUS STRUCTURES: Multilevel thoracic endplate degenerative changes. IMPRESSION: 1. No identified pulmonary embolism. 2. Multifocal, advanced interstitial lung disease with fibrosis, cystic changes and bronchiectasis, d etailed above. Recommend pulmonology referral. 3. Moderate mediastinal adenopathy may be reactive or neoplastic. Similar appearance as compared to t he prior exam dated October 01, 2018. 4. Hepatic steatosis and hepatomegaly. 5. Probable left ovarian cyst. Follow-up ultrasound in 6-8 weeks to document resolution requested. This document is electronically signed by Ronn Soria DO., Dec 20 2018 01:05:20 AM ET
[2018-12-20] MEDS ORDERED: ULTRAM PO ONE (01:27)
[2018-12-20] MEDS ORDERED: ULTRAM ONE (01:30)
[2018-12-20 01:34] VITALS: BP 154/78
--- NOTE | 2018-12-20 01:50 | Emergency Department Report ---
- General Chief Complaint: Upper Respiratory Infection Stated Complaint: SOB Time Seen by Provider: 12/19/18 19:24 Source: patient Mode of arrival: Ambulatory Limitations: No Limitations - History of Present Illness Initial Comments: 38-year-old female with history of sarcoidosis, CHF, chronically on 3 L O2 at home presents with complaint of URI symptoms times one week. Patient states cough has worsened over the last 3 days with associated chest pain with cough and wheezing. Patient denies chest pain that is not associated with cough. Denies fever. States cough is productive with green sputum. Patient also reports abdominal pain with constipation. MD Complaint: cough -: week(s) (1) Severity: moderate Consistency: constant Improves With: nothing Worsens With: nothing Associated Symptoms: chest pain (with cough), shortness of breath. denies: fever, chills, nausea, vomiting, diarrhea - Related Data Home Medications Medication Instructions Recorded Confirmed Last Taken Metoprolol [Lopressor TAB] 50 mg PO QDAY 12/20/18 12/20/18 Unknown Previous Rx's Medication Instructions Recorded Last Taken Type Insulin NPH/Regular [NovoLIN 70/30] 50 unit SUB-Q BIDDIAB units 08/24/17 09/30/18 Rx ALBUTEROL NEB's [Proventil 0.083% 2.5 mg IH Q4HRT PRN #100 nebu 10/02/18 Unknown Rx NEBS] Aspirin [Aspirin BABY CHEW TAB] 81 mg PO DAILY #30 tab.chew 10/02/18 Unknown Rx Budesonide [Pulmicort Respules] 0.25 mg IH Q12HRT #60 nebu 10/02/18 Unknown Rx Glimepiride [Amaryl] 4 mg PO BID #60 tablet 10/02/18 Unknown Rx Torsemide [Demadex] 20 mg PO BID #60 tablet 10/02/18 Unknown Rx predniSONE [Deltasone] 20 mg PO QDAY #30 tablet 10/02/18 Unknown Rx Benzonatate [Tessalon Perles] 100 mg PO Q8HR PRN #20 capsule 12/20/18 Unknown Rx predniSONE [Deltasone] 50 mg PO QDAY #5 tab 12/20/18 Unknown Rx Allergies Allergy/AdvReac Type Severity Reaction Status Date / Time No Known Allergies Allergy Verified 12/19/18 17:34 ED Review of Systems ROS: Stated complaint: SOB Other details as noted in HPI Comment: All other systems reviewed and negative Constitutional: denies: chills, fever Respiratory: cough, wheezing Cardiovascular: chest pain (with cough) Gastrointestinal: denies: nausea, vomiting ED Past Medical Hx - Past Medical History Hx Hypertension: Yes Hx CVA: No Hx Heart Attack/AMI: No Hx Congestive Heart Failure: No Hx Diabetes: Yes Hx Deep Vein Thrombosis: No Hx Pulmonary Embolism: No Hx Sickle Cell Disease: No Hx Asthma: No Hx COPD: No Hx Tuberculosis: No Hx HIV: No Additional medical history: Sarcoidosis, Home 02 2-4L. Afib - Surgical History Hx Coronary Stent: No Hx Pacemaker: No Additional Surgical History: x3 - Social History Smoking Status: Never Smoker - Medications Home Medications: Home Medications Medication Instructions Recorded Confirmed Last Taken Type Insulin NPH/Regular [NovoLIN 70/30] 50 unit SUB-Q BIDDIAB units 08/24/17 10/01/18 09/30/18 Rx ALBUTEROL NEB's [Proventil 0.083% 2.5 mg IH Q4HRT PRN #100 nebu 10/02/18 Un known Rx NEBS] Aspirin [Aspirin BABY CHEW TAB] 81 mg PO DAILY #30 tab.chew 10/02/18 Unknown Rx Budesonide [Pulmicort Respules] 0.25 mg IH Q12HRT #60 nebu 10/02/18 Unknown Rx Glimepiride [Amaryl] 4 mg PO BID #60 tablet 10/02/18 12/20/18 Unknown Rx Torsemide [Demadex] 20 mg PO BID #60 tablet 10/02/18 12/20/18 Unknown Rx predniSONE [Deltasone] 20 mg PO QDAY #30 tablet 10/02/18 12/20/18 Unknown Rx Benzonatate [Tessalon Perles] 100 mg PO Q8HR PRN #20 capsule 12/20/18 Unknown Rx Metoprolol [Lopressor TAB] 50 mg PO QDAY 12/20/18 12/20/18 Unknown History predniSONE [Deltasone] 50 mg PO QDAY #5 tab 12/20/18 Unknown Rx ED Physical Exam - General Limitations: No Limitations General appearance: alert, in no apparent distress - Head Head exam: Present: atraumatic, normocephalic - Eye Eye exam: Present: normal appearance - ENT ENT exam: Present: mucous membranes moist - Neck Neck exam: Present: normal inspection - Respiratory Respiratory exam: Present: respiratory distress (mild), wheezes - Cardiovascular Cardiovascular Exam: Present: normal rhythm, tachycardia - GI/Abdominal GI/Abdominal exam: Present: soft. Absent: distended, tenderness - Extremities Exam Extremities exam: Present: normal inspection. Absent: pedal edema - Neurological Exam Neurological exam: Present: alert, oriented X3 - Psychiatric Psychiatric exam: Present: normal affect, normal mood - Skin Skin exam: Present: warm, dry, intact, normal color ED Course Vital Signs 12/19/18 12/19/18 12/19/18 19:25 19:40 20:10 Temperature 98.4 F 98.4 F Pulse Rate 137 H 138 H 137 H Pulse Rate [ Anterior Bilateral Throughout] Respiratory 18 18 26 H Rate Respiratory Rate [Anterior Bilateral Throughout] Blood Pressure 114/76 114/76 Blood Pressure 140/89 [Left] O2 Sat by Pulse 92 88 93 Oximetry 12/19/18 12/19/18 12/19/18 20:16 20:38 20:46 Temperature Pulse Rate 133 H 135 H Pulse Rate [ Anterior Bilateral Throughout] Respiratory Rate Respiratory Rate [Anterior Bilateral Throughout] Blood Pressure 140/89 Blood Pressure [Left] O2 Sat by Pulse 92 94 Oximetry 12/19/18 12/19/18 12/19/18 21:00 21:16 21:29 Temperature Pulse Rate 126 H Pulse Rate [ 128 H Anterior Bilateral Throughout] Respiratory 26 H Rate Respiratory 16 Rate [Anterior Bilateral Throughout] Blood Pressure Blood Pressure [Left] O2 Sat by Pulse 98 97 Oximetry 12/19/18 12/19/18 12/19/18 21:30 21:38 21:39 Temperature Pulse Rate 127 H 126 H Pulse Rate [ Anterior Bilateral Throughout] Respiratory 37 H 30 H 30 H Rate Respiratory Rate [Anterior Bilateral Throughout] Blood Pressure 140/89 Blood Pressure 145/64 [Left] O2 Sat by Pulse 92 98 Oximetry 12/19/18 12/19/18 12/19/18 21:46 22:02 22:23 Temperature Pulse Rate 128 H 127 H 129 H Pulse Rate [ Anterior Bilateral Throughout] Respiratory 31 H 34 H 33 H Rate Respiratory Rate [Anterior Bilateral Throughout] Blood Pressure 146/63 146/63 Blood Pressure [Left] O2 Sat by Pulse 98 98 97 Oximetry 12/19/18 12/19/18 12/19/18 22:31 22:45 23:01 Temperature Pulse Rate 127 H 121 H 127 H Pulse Rate [ Anterior Bilateral Throughout] Respiratory 25 H 31 H 41 H Rate Respiratory Rate [Anterior Bilateral Throughout] Blood Pressure Blood Pressure [Left] O2 Sat by Pulse 97 99 96 Oximetry 12/19/18 12/19/18 12/19/18 23:15 23:25 23:31 Temperature Pulse Rate 124 H 126 H Pulse Rate [ 110 H Anterior Bilateral Throughout] Respiratory 38 H 38 H Rate Respiratory 16 Rate [Anterior Bilateral Throughout] Blood Pressure Blood Pressure [Left] O2 Sat by Pulse 96 97 Oximetry 12/19/18 12/19/18 12/20/18 23:45 23:56 00:00 Temperature Pulse Rate 124 H 124 H 126 H Pulse Rate [ Anterior Bilateral Throughout] Respiratory 38 H 27 H 34 H Rate Respiratory Rate [Anterior Bilateral Throughout] Blood Pressure 146/63 128/69 Blood Pressure [Left] O2 Sat by Pulse 98 98 Oximetry 12/20/18 12/20/18 12/20/18 00:35 00:45 01:01 Temperature Pulse Rate 128 H 125 H Pulse Rate [ Anterior Bilateral Throughout] Respiratory 21 43 H Rate Respiratory Rate [Anterior Bilateral Throughout] Blood Pressure 128/69 128/69 128/69 Blood Pressure [Left] O2 Sat by Pulse 96 90 Oximetry 12/20/18 12/20/18 12/20/18 01:15 01:31 01:32 Temperature Pulse Rate 121 H 122 H Pulse Rate [ Anterior Bilateral Throughout] Respiratory 36 H 34 H 20 Rate Respiratory Rate [Anterior Bilateral Throughout] Blood Pressure 128/69 154/78 Blood Pressure [Left] O2 Sat by Pulse 97 95 Oximetry ED Medical Decision Making - Lab Data Result diagrams: 12/19/18 19:49 12/19/18 19:49 - Radiology Data Radiology results: report reviewed, image reviewed - Medical Decision Making 38 yo F w/ hx sarcoidosis, diabetes, CHF presents w/ URI symptoms x 1 week. Pt wheezing on exam. One hour neb treatment given. Following treatment, wheezing has resolved, pt feels much more comfortable, does not appear to be in any re spiratory distress. Pt remains tachycardic into the 120s. Possibly due to the neb treatment, as CTA Chest and CT A/P negative for any abnormalities. Pt afebrile, WBCs normal. Pt has hx of Afib, however is sinus tach on the monitor. Glucose initially elevated to the 400s, however, pt not in DKA. Repeat accucheck 295. Gave pt the option of admission due to her tachycardia, however, pt wants to go home. Pt is in no distress. Return precautions given. Outpt follow-up advised - Differential Diagnosis pneumonia, pulm edema, PE, bowel obstruction, constipation Critical care attestation.: If time is entered above; I have spent that time in minutes in the direct care of this critically ill patient, excluding procedure time. ED Disposition Clinical Impression: Interstitial lung disease, Asthma exacerbation, Acute hyperglycemia Disposition: TO HOME OR SELFCARE Is pt being admited?: No Condition: Stable Instructions: Upper Respiratory Infection (ED), Dyspnea (ED) Prescriptions: predniSONE [Deltasone] 50 mg PO QDAY #5 tab Benzonatate [Tessalon Perles] 100 mg PO Q8HR PRN #20 capsule PRN Reason: Cough Referrals: KELSEY DAVIS MD [Primary Care Provider] - 3-5 Days Forms: Work/School Release Form Time of Disposition: 01:55
== END 2018-12-20 02:54 | disposition home or self-care (01) ==
LOC: ED 17:26
DX: J84.9 Interstitial pulmonary disease, unspecified (principal); J45.901 Unspecified asthma with (acute) exacerbation; E11.65 Type 2 diabetes mellitus with hyperglycemia; I10 Essential (primary) hypertension; I48.91 Unspecified atrial fibrillation; Z79.4 Long term (current) use of insulin; Z79.82 Long term (current) use of aspirin
CPT/HCPCS: 36415; 71046; 71275; 74177; 80053; 82803; 82962; 85027; 94640; 96374; 96375; 99285; J1885; J2930; Q9967

== ENCOUNTER 2019-01-02 18:05 | Emergency (ER) | payer OTHER ==
[2019-01-02] MEDS ORDERED: IBUPROFEN PO ONE ×2 (18:44→18:47)
--- NOTE | 2019-01-02 18:46 | Emergency Department Report ---
Blank Doc - Documentation Documentation: 38 y o female presents to ED cc of boil to bottom accompanied with dizziness, g eneral body aches and fever PMH: sarcoidosis Labs ordered,ua sobeida in triage ACC eval
[2019-01-02 19:43] LABS: Basophils # (Auto) 0.3 K/mm3 (0.0-0.1); Basophils % (Auto) 1.8 % (0.0-1.8); Eosinophils % (Auto) 0.1 % (0.0-4.3); Hematocrit 42.5 % (30.3-42.9); Hemoglobin 13.5 gm/dl (10.1-14.3); Lymphocytes # (Auto) 2.1 K/mm3 (1.2-5.4); Mean Corpuscular HGB Conc 32 % (30-34); Mean Corpuscular Volume 83 fl (79-97); Monocytes # (Auto) 1.3 K/mm3 (0.0-0.8); Monocytes % (Auto) 6.9 % (0.0-7.3); Platelet Count 227 K/mm3 (140-440); Red Cell Distribution Width 16.5 % (13.2-15.2)
[2019-01-02 19:55] LABS: BUN/Creatinine Ratio 17; Blood Urea Nitrogen 17 mg/dL (7-17); Calcium 9.1 mg/dL (8.4-10.2); Hemolysis Index 4
[2019-01-02] MEDS ORDERED: HumuLIN R IV ONE (21:23)
[2019-01-02] MEDS ORDERED: TORADOL IV ONE (21:24)
--- NOTE | 2019-01-02 21:28 | Emergency Department Report ---
Abscess Boil HPI - HPI Chief Complaint: Skin/Abscess/Foreign Body Stated Complaint: BOIL ON BUTT/BODY PAIN/CHILL/FEVER Time Seen by Provider: 01/02/19 18:42 Duration: 3 Days Location: Perianal Severity: Moderate History: Yes Fever, Yes Pain, No Purulent Drainage, No Numbness, No Foreign Body, No Previous History, No Insect Bite HPI: This is a 38-year-old -Citizen Of [place] female who presents to the emergency room with cyst right but 3 days. History of diabetes, hypertension, and sarcoidosis. Patient has follow home oxygen 2-3 L. She also reports headache, fever, and chills. She reports a history of an abscess as a child. She is currently apply warm compresses with mild drainage. She denies chest pain, shortness of breath, palpitations, nausea or vomiting. Home Medications: Home Medications Medication Instructions Recorded Confirmed Last Taken Metoprolol [Lopressor TAB] 50 mg PO QDAY 12/20/18 12/20/18 Unknown Previous Rx's Medication Instructions Recorded Last Taken Type Insulin NPH/Regular [NovoLIN 70/30] 50 unit SUB-Q BIDDIAB units 08/24/17 09/30/18 Rx ALBUTEROL NEB's [Proventil 0.083% 2.5 mg IH Q4HRT PRN #100 nebu 10/02/18 Unknown Rx NEBS] Aspirin [Aspirin BABY CHEW TAB] 81 mg PO DAILY #30 tab.chew 10/02/18 Unknown Rx Budesonide [Pulmicort Respules] 0.25 mg IH Q12HRT #60 nebu 10/02/18 Unknown Rx Glimepiride [Amaryl] 4 mg PO BID #60 tablet 10/02/18 Unknown Rx Torsemide [Demadex] 20 mg PO BID #60 tablet 10/02/18 Unknown Rx predniSONE [Deltasone] 20 mg PO QDAY #30 tablet 10/02/18 Unknown Rx Benzonatate [Tessalon Perles] 100 mg PO Q8HR PRN #20 capsule 12/20/18 Unknown Rx predniSONE [Deltasone] 50 mg PO QDAY #5 tab 12/20/18 Unknown Rx Acetaminophen/Codeine [Tylenol 1 tab PO Q6H PRN #12 tab 01/02/19 Unknown Rx /Codeine # 3 tab] Clindamycin [Clindamycin CAP] 300 mg PO Q8H #21 cap 01/02/19 Unknown Rx Sulfamethoxazole/Trimethoprim 1 each PO BID #20 tablet 01/02/19 Unknown Rx [Bactrim DS TAB] Allergies/Adverse Reactions: Allergies Allergy/AdvReac Type Severity Reaction Status Date / Time No Known Allergies Allergy Verified 01/02/19 18:09 ED Review of Systems ROS: Stated complaint: BOIL ON BUTT/BODY PAIN/CHILL/FEVER Other details as noted in HPI Constitutional: chills, fever Respiratory: denies: cough, shortness of breath, wheezing Cardiovascular: denies: chest pain, palpitations Gastrointestinal: denies: abdominal pain, nausea, diarrhea Skin: lesions (abscess right buttock). denies: rash Neurological: denies: headache, weakness, paresthesias Psychiatric: denies: anxiety, depression ED Past Medical Hx - Past Medical History Hx Hypertension: Yes Hx CVA: No Hx Heart Attack/AMI: No Hx Congestive Heart Failure: No Hx Diabetes: Yes Hx Deep Vein Thrombosis: No Hx Pulmonary Embolism: No Hx Sickle Cell Disease: No Hx Asthma: No Hx COPD: No Hx Tuberculosis: No Hx HIV: No Additional medical history: Sarcoidosis, Home 02 2-4L. Afib - Surgical History Hx Coronary Stent: No Hx Pacemaker: No Additional Surgical History: x3 - Social History Smoking Status: Never Smoker - Medications Home Medications: Home Medications Medication Instructions Recorded Confirmed Last Taken Type Insulin NPH/Regular [NovoLIN 70/30] 50 unit SUB-Q BIDDIAB units 08/24/17 10/01/18 09/30/18 Rx ALBUTEROL NEB's [Proventil 0.083% 2.5 mg IH Q4HRT PRN #100 nebu 10/02/18 Unknown Rx NEBS] Aspirin [Aspirin BABY CHEW TAB] 81 mg PO DAILY #30 tab.chew 10/02/18 Unknown Rx Budesonide [Pulmicort Respules] 0.25 mg IH Q12HRT #60 nebu 10/02/18 Unknown Rx Glimepiride [Amaryl] 4 mg PO BID #60 tablet 10/02/18 12/20/18 Unknown Rx Torsemide [Demadex] 20 mg PO BID #60 tablet 10/02/18 12/20/18 Unknown Rx predniSONE [Deltasone] 20 mg PO QDAY #30 tablet 10/02/18 12/20/18 Unknown Rx Benzonatate [Tessalon Perles] 100 mg PO Q8HR PRN #20 capsule 12/20/18 Unknown Rx Metoprolol [Lopressor TAB] 50 mg PO QDAY 12/20/18 12/20/18 Unknown History predniSONE [Deltasone] 50 mg PO QDAY #5 tab 12/20/18 Unknown Rx Acetaminophen/Codeine [Tylenol 1 tab PO Q6H PRN #12 tab 01/02/19 Unknown Rx /Codeine # 3 tab] Clindamycin [Clindamycin CAP] 300 mg PO Q8H #21 cap 01/02/19 Unknown Rx Sulfamethoxazole/Trimethoprim 1 each PO BID #20 tablet 01/02/19 Unknown Rx [Bactrim DS TAB] ED Abscess Boil Physical Exam - Exam General: Vital signs noted. No distress. Alert and acting appropriately. Front/Back of Body, Lg (Color): 1 - 1 cm nonfluctuant nodule to right inner gluteal, tenderness, surrounding cellulitis, no drainage Size: 1 cm Exam: Yes Tenderness, Yes Surrounding Cellulites/Erythema, Yes Normal Neurologic Exam, Yes Normal Circulation, No Fluctuance, No Lymphangitis, No Crepitation, No Heart Murmur ED Course Vital Signs 01/02/19 18:41 Temperature 100.6 F H Pulse Rate 75 Respiratory 22 Rate Blood Pressure 141/93 [Right] O2 Sat by Pulse 96 Oximetry Critical care attestation.: If time is entered above; I have spent that time in minutes in the direct care of this critically ill patient, excluding procedure time. ED Medical Decision Making - Lab Data Result diagrams: 01/02/19 19:25 01/02/19 19:25 Lab Results 01/02/19 01/02/19 01/02/19 Range/Units 19:25 19:25 21:55 WBC 19.0 H (4.5-11.0) K/mm3 RBC 5.10 H (3.65-5.03) M/mm3 Hgb 13.5 (10.1-14.3) gm/dl Hct 42.5 (30.3-42.9) % MCV 83 (79-97) fl MCH 27 L (28-32) pg MCHC 32 (30-34) % RDW 16.5 H (13.2-15.2) % Plt Count 227 (140-440) K/mm3 Lymph % (Auto) 11.0 L (13.4-35.0) % [place] % (Auto) 6.9 (0.0-7.3) % Eos % (Auto) 0.1 (0.0-4.3) % Baso % (Auto) 1.8 (0.0-1.8) % Lymph # 2.1 (1.2-5.4) K/mm3 [place] # 1.3 H (0.0-0.8) K/mm3 Eos # 0.0 (0.0-0.4) K/mm3 Baso # 0.3 H (0.0-0.1) K/mm3 Seg Neutrophils % 80.2 H (40.0-70.0) % Seg Neutrophils # 15.2 H (1.8-7.7) K/mm3 Sodium 131 L (137-145) mmol/L Potassium 3.9 (3.6-5.0) mmol/L Chloride 86.5 L (98-107) mmol/L Carbon Dioxide 30 (22-30) mmol/L Anion Gap 18 mmol/L BUN 17 (7-17) mg/dL Creatinine 1.0 (0.7-1.2) mg/dL Estimated GFR > 60 ml/min BUN/Creatinine Ratio 17 % Glucose 455 H (65-100) mg/dL POC Glucose (70-105) Calcium 9.1 (8.4-10.2) mg/dL Urine Color Yellow (Yellow) Urine Turbidity Clear (Clear) Urine pH 5.0 (5.0-7.0) Ur Specific [place] 1.035 H (1.003-1.030) Urine Protein 30 mg/dl (Negative) mg/dL Urine Glucose (UA) >=500 (Negative) mg/dL Urine Ketones 20 (Negative) mg/dL Urine Blood Neg (Negative) Urine Nitrite Neg (Negative) Urine Bilirubin Neg (Negative) Urine Urobilinogen < 2.0 (<2.0) mg/dL Ur Leukocyte Esterase Neg (Negative) Urine WBC (Auto) < 1.0 (0.0-6.0) /HPF Urine RBC (Auto) 1.0 (0.0-6.0) /HPF U Epithel Cells (Auto) < 1.0 (0-13.0) /HPF Urine Mucus Few /HPF / Range/Units 23:38 WBC (4.5-11.0) K/mm3 RBC (3.65-5.03) M/mm3 Hgb (10.1-14.3) gm/dl Hct (30.3-42.9) % MCV (79-97) fl MCH (28-32) pg MCHC (30-34) % RDW (13.2-15.2) % Plt Count (140-440) K/mm3 Lymph % (Auto) (13.4-35.0) % [place] % (Auto) (0.0-7.3) % Eos % (Auto) (0.0-4.3) % Baso % (Auto) (0.0-1.8) % Lymph # (1.2-5.4) K/mm3 [place] # (0.0-0.8) K/mm3 Eos # (0.0-0.4) K/mm3 Baso # (0.0-0.1) K/mm3 Seg Neutrophils % (40.0-70.0) % Seg Neutrophils # (1.8-7.7) K/mm3 Sodium (137-145) mmol/L Potassium (3.6-5.0) mmol/L Chloride (98-107) mmol/L Carbon Dioxide (22-30) mmol/L Anion Gap mmol/L BUN (7-17) mg/dL Creatinine (0.7-1.2) mg/dL Estimated GFR ml/min BUN/Creatinine Ratio % Glucose (65-100) mg/dL POC Glucose 283 H (70-105) Calcium (8.4-10.2) mg/dL Urine Color (Yellow) Urine Turbidity (Clear) Urine pH (5.0-7.0) Ur Specific [place] (1.003-1.030) Urine Protein (Negative) mg/dL Urine Glucose (UA) (Negative) mg/dL Urine Ketones (Negative) mg/dL Urine Blood (Negative) Urine Nitrite (Negative) Urine Bilirubin (Negative) Urine Urobilinogen (<2.0) mg/dL Ur Leukocyte Esterase (Negative) Urine WBC (Auto) (0.0-6.0) /HPF Urine RBC (Auto) (0.0-6.0) /HPF U Epithel Cells (Auto) (0-13.0) /HPF Urine Mucus /HPF - Medical Decision Making This is a 38 y.o. female that presents with abscess to right foot. History of DM2, HTN, and sarcoidosis home oxygen 2-3 L. Patient was examined by me. Obtained BMP, CBC, & UA. Review labs. Glucose 455 on admission. Given Regular i nsulin 7 units once, NS 1L bolus once, and motrin. Leukocytosis, given Rocephin 1 g IV while in ER. On focal exam a nonfluctuance nodule to right inner gluteal region. I&D not indicated at this time. Abscess drained while at home. Glucose 289 after treatment and reports feeling better. Patient states she didn't' take insulin today because she was in to much pain. Start bactrim, clindamycin and tylenol #3 for cellulitis abscess. Discussed plan with patient and agreed to plan. No further questions noted by the patient. Discharged home in stable condition. ED Disposition Clinical Impression: IDDM (insulin dependent diabetes mellitus), Morbid obesity with BMI of 40.0- 44.9, adult, Abscess and cellulitis of gluteal region Diabetes mellitus type 2, uncontrolled Qualifiers: Glycemic state: with hyperglycemia Qualified Code(s): E11.65 - Type 2 diabetes mellitus with hyperglycemia Disposition: DC-01 TO HOME OR SELFCARE Is pt being admited?: No Does the pt Need Aspirin: No Condition: Stable Instructions: Diabetes Mellitus Type 2 in Adults (ED), Cellulitis (ED), Abscess (ED) Additional Instructions: Complete full round of antibiotics as prescribed. Never discontinue insulin without discussion with doctor. Low blood sugar is often accompanied by symptoms such as tachycardia, sweating, shakiness, intense hunger, or confusion, and must be dealt with promptly by eating a carbohydrate such as apple or drink juice. After self-treatment, blood sugar should be checked if possible. Eat a carbohydrate snack prior to exercise if blood glucose is less than 100. Follow up with Primary Care Provider Dr. Lowery at [facility] in 24-72 days. Follow up with PCP or ER in 2-3 days. Return to ER if foul smelling discharge, swelling, or severe pain to wound. Prescriptions: Sulfamethoxazole/Trimethoprim [Bactrim DS TAB] 1 each PO BID #20 tablet Clindamycin [Clindamycin CAP] 300 mg PO Q8H #21 cap Acetaminophen/Codeine [Tylenol /Codeine # 3 tab] 1 tab PO Q6H PRN #12 tab PRN Reason: Pain , Severe (7-10) Referrals: [facility] [Outside] - 3-5 Days [facility] [Outside] - 3-5 Days [facility] [Outside] - 3-5 Days [facility] [Provider Group] - 3-5 Days Forms: Work/School Release Form(ED) Time of Disposition: 23:51
[2019-01-02] MEDS ORDERED: NACL 0.9% 1000 ML 1,000 ML IV ONE (21:35)
[2019-01-02] MEDS ORDERED: ROCEPHIN/NS 1 GM/50 ML 1 GM/50 ML BAG IV ONE (22:55)
[2019-01-02 23:30] LABS: Bilirubin,Urine NEG (Negative); Blood,Urine NEG (Negative); Color,Urine Yellow (Yellow); Mucus,Urine FEW /HPF; Urobilinogen,Urine < 2.0 mg/dL (<2.0); WBC,Urine < 1.0 /HPF (0.0-6.0)
[2019-01-03 00:32] VITALS: BP 106/57
== END 2019-01-03 00:36 | disposition home or self-care (01) ==
LOC: ED 18:05
DX: E11.65 Type 2 diabetes mellitus with hyperglycemia (principal); I10 Essential (primary) hypertension; I48.91 Unspecified atrial fibrillation; E66.09 Other obesity due to excess calories; Z68.41 Body mass index [BMI] 40.0-44.9, adult; Z79.4 Long term (current) use of insulin; Z79.82 Long term (current) use of aspirin
CPT/HCPCS: 36415; 80048; 81001; 82962; 85025; 96361; 96365; 96375; 99283; J0696; J1885; J7030; J1815

== ENCOUNTER 2019-01-07 16:31 | Emergency (ER) | payer SELFPAY ==
--- NOTE | 2019-01-07 16:42 | Emergency Department Report ---
Chief Complaint: Skin/Abscess/Foreign Body Stated Complaint: ABSCESS ON R BUTTOCK Time Seen by Provider: 01/07/19 16:37 - HPI History of Present Illness: This is a 38 y.o. female that presents to the ER with abscess to buttocks. Patient states it started draining 3 days ago. PMH sarcodosis, DM - Exam Vital Signs: Vital Signs 01/07/19 16:37 Temperature 98 F Pulse Rate 117 H Respiratory 18 Rate Blood Pressure 139/87 O2 Sat by Pulse 95 Oximetry MSE screening note: Focused history and physical exam performed. Due to findings the following was ordered: ED Disposition for MSE Condition: Stable
[2019-01-07] MEDS ORDERED: ZOFRAN ODT PO ONE (17:47)
[2019-01-07] MEDS ORDERED: NORCO 5/325 PO ONE (17:47)
[2019-01-07] MEDS ORDERED: CLEOCIN 900 MG/50 mL 900 MG/50 ML BAG IV ONE (19:03)
--- NOTE | 2019-01-07 19:16 | Emergency Department Report ---
- General Chief complaint: Skin/Abscess/Foreign Body Stated complaint: ABSCESS ON R BUTTOCK Time Seen by Provider: 01/07/19 16:37 Source: patient Mode of arrival: Wheelchair Limitations: Physical Limitation - History of Present Illness Initial comments: pt is a 38 yo female who presents to the ED with c/o an abscess to the right buttocks that began on 01/02/19. The patient states she was seen in the ED on 01/02/19 and it was not ready to be drained per pt and she was placed on clindamycin and bactrim. She states it is currently open and draining pus with a foul odor. The patient believes the area has gotten larger. she states she had a subjective fever yesterday but none today. Pt is a diabetic and states her blood sugar has been between 200-300 which she states is normal for her. - Related Data Home Medications Medication Instructions Recorded Confirmed Last Taken Metoprolol [Lopressor TAB] 50 mg PO QDAY 12/20/18 12/20/18 Unknown Previous Rx's Medication Instructions Recorded Last Taken Type Insulin NPH/Regular [NovoLIN 70/30] 50 unit SUB-Q BIDDIAB units 08/24/17 09/30/18 Rx ALBUTEROL NEB's [Proventil 0.083% 2.5 mg IH Q4HRT PRN #100 nebu 10/02/18 Unknown Rx NEBS] Aspirin [Aspirin BABY CHEW TAB] 81 mg PO DAILY #30 tab.chew 10/02/18 Unknown Rx Budesonide [Pulmicort Respules] 0.25 mg IH Q12HRT #60 nebu 10/02/18 Unknown Rx Glimepiride [Amaryl] 4 mg PO BID #60 tablet 10/02/18 Unknown Rx Torsemide [Demadex] 20 mg PO BID #60 tablet 10/02/18 Unknown Rx predniSONE [Deltasone] 20 mg PO QDAY #30 tablet 10/02/18 Unknown Rx Benzonatate [Tessalon Perles] 100 mg PO Q8HR PRN #20 capsule 12/20/18 Unknown Rx predniSONE [Deltasone] 50 mg PO QDAY #5 tab 12/20/18 Unknown Rx Acetaminophen/Codeine [Tylenol 1 tab PO Q6H PRN #12 tab 01/02/19 Unknown Rx /Codeine # 3 tab] Clindamycin [Clindamycin CAP] 300 mg PO Q8H #21 cap 01/02/19 Unknown Rx Sulfamethoxazole/Trimethoprim 1 each PO BID #20 tablet 01/02/19 Unknown Rx [Bactrim DS TAB] Allergies Allergy/AdvReac Type Severity Reaction Status Date / Time No Known Allergies Allergy Verified 01/02/19 18:09 Abscess Boil HPI - HPI Chief Complaint: Skin/Abscess/Foreign Body Stated Complaint: ABSCESS ON R BUTTOCK Time Seen by Provider: 01/07/19 16:37 Home Medications: Home Medications Medication Instructions Recorded Confirmed Last Taken Metoprolol [Lopressor TAB] 50 mg PO QDAY 12/20/18 12/20/18 Unknown Previous Rx's Medication Instructions Recorded Last Taken Type Insulin NPH/Regular [NovoLIN 70/30] 50 unit SUB-Q BIDDIAB units 08/24/17 09/30/18 Rx ALBUTEROL NEB's [Proventil 0.083% 2.5 mg IH Q4HRT PRN #100 nebu 10/02/18 Unknown Rx NEBS] Aspirin [Aspirin BABY CHEW TAB] 81 mg PO DAILY #30 tab.chew 10/02/18 Unknown Rx Budesonide [Pulmicort Respules] 0.25 mg IH Q12HRT #60 nebu 10/02/18 Unknown Rx Glimepiride [Amaryl] 4 mg PO BID #60 tablet 10/02/18 Unknown Rx Torsemide [Demadex] 20 mg PO BID #60 tablet 10/02/18 Unknown Rx predniSONE [Deltasone] 20 mg PO QDAY #30 tablet 10/02/18 Unknown Rx Benzonatate [Tessalon Perles] 100 mg PO Q8HR PRN #20 capsule 12/20/18 Unknown Rx predniSONE [Deltasone] 50 mg PO QDAY #5 tab 12/20/18 Unknown Rx Acetaminophen/Codeine [Tylenol 1 tab PO Q6H PRN #12 tab 01/02/19 Unknown Rx /Codeine # 3 tab] Clindamycin [Clindamycin CAP] 300 mg PO Q8H #21 cap 01/02/19 Unknown Rx Sulfamethoxazole/Trimethoprim 1 each PO BID #20 tablet 01/02/19 Unknown Rx [Bactrim DS TAB] Allergies/Adverse Reactions: Allergies Allergy/AdvReac Type Severity Reaction Status Date / Time No Known Allergies Allergy Verified 01/02/19 18:09 ED Review of Systems ROS: Stated complaint: ABSCESS ON R BUTTOCK Other details as noted in HPI Comment: All other systems reviewed and negative ED Past Medical Hx - Past Medical History Previous Medical History?: Yes Hx Hypertension: Yes Hx CVA: No Hx Heart Attack/AMI: No Hx Congestive Heart Failure: No Hx Diabetes: Yes Hx Deep Vein Thrombosis: No Hx Pulmonary Embolism: No Hx Sickle Cell Disease: No Hx Asthma: No Hx COPD: No Hx Tuberculosis: No Hx HIV: No Additional medical history: Sarcoidosis, Home 02 2-4L. Afib - Surgical History Past Surgical History?: Yes Hx Coronary Stent: No Hx Pacemaker: No Additional Surgical History: x3 - Social History Smoking Status: Never Smoker Substance Use Type: None - Medications Home Medications: Home Medications Medication Instructions Recorded Confirmed Last Taken Type Insulin NPH/Regular [NovoLIN 70/30] 50 unit SUB-Q BIDDIAB units 08/24/17 10/01/18 09/30/18 Rx ALBUTEROL NEB's [Proventil 0.083% 2.5 mg IH Q4HRT PRN #100 nebu 10/02/18 Unknown Rx NEBS] Aspirin [Aspirin BABY CHEW TAB] 81 mg PO DAILY #30 tab.chew 10/02/18 Unknown Rx Budesonide [Pulmicort Respules] 0.25 mg IH Q12HRT #60 nebu 10/02/18 Unknown Rx Glimepiride [Amaryl] 4 mg PO BID #60 tablet 10/02/18 12/20/18 Unknown Rx Torsemide [Demadex] 20 mg PO BID #60 tablet 10/02/18 12/20/18 Unknown Rx predniSONE [Deltasone] 20 mg PO QDAY #30 tablet 10/02/18 12/20/18 Unknown Rx Benzonatate [Tessalon Perles] 100 mg PO Q8HR PRN #20 capsule 12/20/18 Unknown Rx Metoprolol [Lopressor TAB] 50 mg PO QDAY 12/20/18 12/20/18 Unknown History predniSONE [Deltasone] 50 mg PO QDAY #5 tab 12/20/18 Unknown Rx Acetaminophen/Codeine [Tylenol 1 tab PO Q6H PRN #12 tab 01/02/19 Unknown Rx /Codeine # 3 tab] Clindamycin [Clindamycin CAP] 300 mg PO Q8H #21 cap 01/02/19 Unknown Rx Sulfamethoxazole/Trimethoprim 1 each PO BID #20 tablet 01/02/19 Unknown Rx [Bactrim DS TAB] ED Physical Exam - General Limitations: No Limitations General appearance: alert, in no apparent distress - Head Head exam: Present: atraumatic, normocephalic - Eye Eye exam: Present: normal appearance - ENT ENT exam: Present: mucous membranes moist - Respiratory Respiratory exam: Present: normal lung sounds bilaterally. Absent: respiratory distress, wheezes, rales, rhonchi, stridor, chest wall tenderness, accessory muscle use, decreased breath sounds, prolonged expiratory - Cardiovascular Cardiovascular Exam: Present: regular rate, normal rhythm, normal heart sounds. Absent: systolic murmur, diastolic murmur, rubs, gallop - Neurological Exam Neurological exam: Present: alert, oriented X3 - Psychiatric Psychiatric exam: Present: normal affect, normal mood - Skin Skin exam: Present: other (3 cm area of induration, with 6 cm area of surrounding erythema, there is a 1 cm area that is open and draining foul smelling purulent drainage) ED Course Vital Signs 01/07/19 01/07/19 01/07/19 16:37 19:00 20:00 Temperature 98 F Pulse Rate 117 H Respiratory 18 16 16 Rate Blood Pressure 139/87 Blood Pressure [Right] O2 Sat by Pulse 95 99 Oximetry 01/07/19 20:13 Temperature 99 F Pulse Rate 96 H Respiratory 16 Rate Blood Pressure Blood Pressure 123/78 [Right] O2 Sat by Pulse 99 Oximetry - I & D Right Buttocks Type of Procedure: Simple Site: right buttocks Blade Size: 11 I & D Procedure: betadine prep, sterile drapes applied, sterile dressing applied Progress: area prepped with betadine, 5 cc of 1% lidocaine used, 2 cm incision made, copious amounts of very foul odor purulent drainage, 50 cc of irrigation used, packed with iodoform gauze, sterile dressing applied, bleeding controlled, pt tolerated well with no complications ED Medical Decision Making - Lab Data Vital Signs 01/07/19 01/07/19 01/07/19 16:37 19:00 20:00 Temperature 98 F Pulse Rate 117 H Respiratory 18 16 16 Rate Blood Pressure 139/87 Blood Pressure [Right] O2 Sat by Pulse 95 99 Oximetry 01/07/19 20:13 Temperature 99 F Pulse Rate 96 H Respiratory 16 Rate Blood Pressure Blood Pressure 123/78 [Right] O2 Sat by Pulse 99 Oximetry - Medical Decision Making pt is a 38 yo female who presents to the ED with c/o an abscess to the right buttocks that began on 01/02/19. The patient states she was seen in the ED on 01/02/19 and it was not ready to be drained per pt and she was placed on clindamycin and bactrim. She states it is currently open and draining pus with a foul odor. The patient believes the area has gotten larger. she states she had a subjective fever yesterday but none today. Pt is a diabetic and states her blood sugar has been between 200-300 which she states is normal for her. large abscess present to the right buttock. incision extending to area that was already drainage and copious amounts of foul smelling drainage was expressed, packing placed. pt given IV clindamycin while in the ED. advised pt that packing would need to be removed in two days either by PCP or in the ED. advised pt to follow up with a general surgeon in the next 2-3 days. return to the emergency room immediately for any new or worsening symptoms. Critical care attestation.: If time is entered above; I have spent that time in minutes in the direct care of this critically ill patient, excluding procedure time. ED Disposition Clinical Impression: Abscess of right buttock Disposition: -01 TO HOME OR SELFCARE Is pt being admited?: No Does the pt Need Aspirin: No Condition: Stable Instructions: Abscess Incision and Drainage (ED), Abscess (ED) Additional Instructions: Please keep area clean and dry. Packing will need to be removed in two days (01/09) either come to the emergency room or be seen by your primary care doctor. Please follow up with a general surgeon in the next 2-3 days. please follow up with your primary care doctor in the next 2-3 days. return to the emergency room immediately for any new or worsening symptoms. Referrals: KELSEY DAVIS MD [Primary Care Provider] - 2-3 Days JOHNY AMADOR DO [Staff Physician] - 2-3 Days Time of Disposition: 19:20 Print Language: VIET[place]ESE
[2019-01-07 20:14] VITALS: BP 123/78
== END 2019-01-07 20:18 | disposition home or self-care (01) ==
LOC: ED 16:31
DX: L02.31 Cutaneous abscess of buttock (principal)
CPT/HCPCS: 96365; 99283; Q0162

== ENCOUNTER 2019-01-09 09:52 | Inpatient (IN) | payer OTHER ==
[2019-01-09] MEDS ORDERED: ZOFRAN IV ONE ×2 (10:47→20:02)
[2019-01-09] MEDS ORDERED: DILAUDID IV ONE ×3 (10:47→20:01)
--- NOTE | 2019-01-09 10:52 | Emergency Department Report ---
HPI - General Chief Complaint: Laceration/Recheck/Suture Time Seen by Provider: 01/09/19 10:45 - HPI HPI: He comes to the ER today for packing removal. She was seen here previously and had an abscess opened up her left buttocks. Upon removing the packing she has stool draining from the wound. Discussed with Dr. Garzon patient is being moved to Main ER. Note that the patient is immunocompromised with sarcoidosis and is on home oxygen. She also has DM. Rolling in pain in ER. Discussed with Dr Garzon Charge Nurse aware To main ED Past Medical Hx - Past Medical History Hx Hypertension: Yes Hx CVA: No Hx Heart Attack/AMI: No Hx Congestive Heart Failure: No Hx Diabetes: Yes Hx Deep Vein Thrombosis: No Hx Pulmonary Embolism: No Hx Sickle Cell Disease: No Hx Asthma: No Hx COPD: No Hx Tuberculosis: No Hx HIV: No Additional medical history: Sarcoidosis, Home 02 2-4L. Afib - Surgical History Hx Coronary Stent: No Hx Pacemaker: No Additional Surgical History: x3 - Social History Smoking Status: Never Smoker Substance Use Type: None - Medications Home Medications: Home Medications Medication Instructions Recorded Confirmed Last Taken Type Insulin NPH/Regular [NovoLIN 70/30] 50 unit SUB-Q BIDDIAB units 08/24/17 10/01/18 09/30/18 Rx ALBUTEROL NEB's [Proventil 0.083% 2.5 mg IH Q4HRT PRN #100 nebu 10/02/18 Unknown Rx NEBS] Aspirin [Aspirin BABY CHEW TAB] 81 mg PO DAILY #30 tab.chew 10/02/18 Unknown Rx Budesonide [Pulmicort Respules] 0.25 mg IH Q12HRT #60 nebu 10/02/18 Unknown Rx Glimepiride [Amaryl] 4 mg PO BID #60 tablet 10/02/18 12/20/18 Unknown Rx Torsemide [Demadex] 20 mg PO BID #60 tablet 10/02/18 12/20/18 Unknown Rx predniSONE [Deltasone] 20 mg PO QDAY #30 tablet 10/02/18 12/20/18 Unknown Rx Benzonatate [Tessalon Perles] 100 mg PO Q8HR PRN #20 capsule 12/20/18 Unknown Rx Metoprolol [Lopressor TAB] 50 mg PO QDAY 12/20/18 12/20/18 Unknown History predniSONE [Deltasone] 50 mg PO QDAY #5 tab 12/20/18 Unknown Rx Acetaminophen/Codeine [Tylenol 1 tab PO Q6H PRN #12 tab 01/02/19 Unknown Rx /Codeine # 3 tab] Clindamycin [Clindamycin CAP] 300 mg PO Q8H #21 cap 01/02/19 Unknown Rx Sulfamethoxazole/Trimethoprim 1 each PO BID #20 tablet 01/02/19 Unknown Rx [Bactrim DS TAB] ED Review of Systems ROS: Stated complaint: PACKING REMOVAL Other details as noted in HPI Physical Exam - Physical Exam Vital Signs: Vital Signs 01/09/19 09:59 Temperature 98.2 F Pulse Rate 65 Respiratory 16 Rate Blood Pressure 106/59 O2 Sat by Pulse 98 Oximetry ED Course Vital Signs 01/09/19 09:59 Temperature 98.2 F Pulse Rate 65 Respiratory 16 Rate Blood Pressure 106/59 O2 Sat by Pulse 98 Oximetry Critical care attestation.: If time is entered above; I have spent that time in minutes in the direct care of this critically ill patient, excluding procedure time. ED Disposition Clinical Impression: Abscess of right buttock Disposition: OP ADMIT IP TO THIS HOSP Is pt being admited?: No Condition: Stable Referrals: KELSEY DAVIS MD [Primary Care Provider] - 3-5 Days Time of Disposition: 10:59
[2019-01-09] MEDS ORDERED: NACL 0.9% 1000 ML IV ONE (10:54)
[2019-01-09] MEDS ORDERED: ZOSYN/NS 4.5GM/100ML 4.5 GM/100 ML VIAL IV ONE (10:57)
[2019-01-09 11:03] LABS: Hematocrit 37.7 % (30.3-42.9); Hemoglobin 11.8 gm/dl (10.1-14.3); Mean Corpuscular HGB Conc 31 % (30-34); Mean Corpuscular Volume 83 fl (79-97); Platelet Count 294 K/mm3 (140-440); Red Blood Count 4.56 M/mm3 (3.65-5.03); Red Cell Distribution Width 16.3 % (13.2-15.2)
[2019-01-09 11:28] LABS: Alanine Aminotransferase 14 units/L (7-56); Albumin 2.7 g/dL (3.9-5); BUN/Creatinine Ratio 16; Blood Urea Nitrogen 14 mg/dL (7-17); Calcium 9.2 mg/dL (8.4-10.2); Hemolysis Index 6
--- NOTE | 2019-01-09 13:13 | Emergency Department Report ---
HPI <LJ ROSS C - Last Filed: 01/09/19 18:29> - HPI HPI: 38-year-old female presents to the emergency department originally for a removal of packing from a right buttock abscess. When the nurse practitioner remove the packing, she noticed some feculent material coming from this wound and the patient was transferred over to the main emergency Department side for further evaluation. The patient continues to have pain to the right buttock, in the area of this abscess. She has a past medical history of sarcoidosis, diabetes, morbid obesity. She denies any fever, nausea, vomitin g. <ARCELIA EVANS - Last Filed: 01/10/19 08:16> - General Chief Complaint: Laceration/Recheck/Suture Time Seen by Provider: 01/09/19 11:00 ED Past Medical Hx <LJ ROSS - Last Filed: 01/09/19 18:29> - Past Medical History Hx Hypertension: Yes Hx CVA: No Hx Heart Attack/AMI: No Hx Congestive Heart Failure: No Hx Diabetes: Yes Hx Deep Vein Thrombosis: No Hx Pulmonary Embolism: No Hx Sickle Cell Disease: No Hx Asthma: No Hx COPD: No Hx Tuberculosis: No Hx HIV: No Additional medical history: Sarcoidosis, Home 02 2-4L. Afib - Surgical History Hx Coronary Stent: No Hx Pacemaker: No Additional Surgical History: x3 - Social History Smoking Status: Never Smoker Substance Use Type: None <ARCELIA EVANS - Last Filed: 01/10/19 08:16> - Medications Home Medications: Home Medications Medication Instructions Recorded Confirmed Last Taken Type Insulin NPH/Regular [NovoLIN 70/30] 50 unit SUB-Q BIDDIAB units 08/24/17 10/01/18 09/30/18 Rx ALBUTEROL NEB's [Proventil 0.083% 2.5 mg IH Q4HRT PRN #100 nebu 10/02/18 Unknown Rx NEBS] Aspirin [Aspirin BABY CHEW TAB] 81 mg PO DAILY #30 tab.chew 10/02/18 Unknown Rx Budesonide [Pulmicort Respules] 0.25 mg IH Q12HRT #60 nebu 10/02/18 Unknown Rx Glimepiride [Amaryl] 4 mg PO BID #60 tablet 10/02/18 12/20/18 Unknown Rx Torsemide [Demadex] 20 mg PO BID #60 tablet 10/02/18 12/20/18 Unknown Rx predniSONE [Deltasone] 20 mg PO QDAY #30 tablet 10/02/18 12/20/18 Unknown Rx Benzonatate [Tessalon Perles] 100 mg PO Q8HR PRN #20 capsule 12/20/18 Unknown Rx Metoprolol [Lopressor TAB] 50 mg PO QDAY 12/20/18 12/20/18 Unknown History predniSONE [Deltasone] 50 mg PO QDAY #5 tab 12/20/18 Unknown Rx Acetaminophen/Codeine [Tylenol 1 tab PO Q6H PRN #12 tab 01/02/19 Unknown Rx /Codeine # 3 tab] Sulfamethoxazole/Trimethoprim 1 each PO BID #20 tablet 01/02/19 Unknown Rx [Bactrim DS TAB] Clindamycin [Clindamycin CAP] 300 mg PO Q8H #21 cap 01/09/19 Unknown Rx HYDROcodone/APAP 5-325 [[place] 1 each PO Q6HR PRN #12 tablet 01/09/19 Unknown Rx 5/325] ED Review of Systems ROS: Stated complaint: PACKING REMOVAL Other details as noted in HPI <LJ ROSS C - Last Filed: 01/09/19 18:29> ROS: Stated complaint: PACKING REMOVAL Other details as noted in HPI Constitutional: denies: chills, fever Eyes: denies: eye pain, vision change ENT: denies: ear pain, throat pain Respiratory: denies: cough, shortness of breath Cardiovascular: denies: chest pain, palpitations Gastrointestinal: denies: abdominal pain, vomiting Genitourinary: denies: dysuria, discharge Musculoskeletal: denies: joint swelling, arthralgia Skin: other (right buttock abscess). denies: rash Neurological: denies: headache, weakness <ARCELIA EVANS - Last Filed: 01/10/19 08:16> Physical Exam - Physical Exam Vital Signs: Vital Signs 01/09/19 01/09/19 01/09/19 09:59 12:32 12:45 Temperature 98.2 F Pulse Rate 65 Respiratory 16 Rate Blood Pressure 106/59 129/76 126/79 O2 Sat by Pulse 98 95 Oximetry 01/09/19 01/09/19 01/09/19 13:00 13:15 13:30 Temperature Pulse Rate Respiratory Rate Blood Pressure 111/70 119/74 113/77 O2 Sat by Pulse 100 97 Oximetry 01/09/19 01/09/19 01/09/19 14:00 14:31 15:00 Temperature Pulse Rate Respiratory Rate Blood Pressure 119/74 119/74 125/78 O2 Sat by Pulse 98 100 96 Oximetry 01/09/19 15:31 Temperature Pulse Rate Respiratory Rate Blood Pressure 125/78 O2 Sat by Pulse 98 Oximetry <LJ ROSS - Last Filed: 01/09/19 18:29> - Physical Exam Vital Signs: Vital Signs 01/09/19 09:59 Temperature 98.2 F Pulse Rate 65 Respiratory 16 Rate Blood Pressure 106/59 O2 Sat by Pulse 98 Oximetry Physical Exam: GENERAL: The patient is well-developed well-nourished. HENT: Normocephalic. Atraumatic. Patient has moist mucous membranes. EYES: Extraocular motions are intact. Pupils equal reactive to light bilaterally. NECK: Supple. Trachea is midline. CHEST/LUNGS: Clear to auscultation. There is no respiratory distress noted. HEART/CARDIOVASCULAR: Regular. There is no tachycardia. There is no murmur. ABDOMEN: Abdomen is soft, nontender. Patient has normal bowel sounds. Morbidly obese habitus. SKIN: There is a medial right buttock abscess. Mild erythema. There is some continued drainage. There is some malodorous discharge from the abscess as well. NEURO: The patient is awake, alert, and oriented. The patient is cooperative. The patient has no focal neurologic deficits. The patient has normal speech. MUSCULOSKELETAL: There is no tenderness or deformity. There is no evidence of acute injury. <ARCELIA EVNAS S - Last Filed: 01/10/19 08:16> ED Course Vital Signs 01/09/19 01/09/19 01/09/19 09:59 12:32 12:45 Temperature 98.2 F Pulse Rate 65 Respiratory 16 Rate Blood Pressure 106/59 129/76 126/79 O2 Sat by Pulse 98 95 Oximetry 01/09/19 01/09/19 01/09/19 13:00 13:15 13:30 Temperature Pulse Rate Respiratory Rate Blood Pressure 111/70 119/74 113/77 O2 Sat by Pulse 100 97 Oximetry 01/09/19 01/09/19 01/09/19 14:00 14:31 15:00 Temperature Pulse Rate Respiratory Rate Blood Pressure 119/74 119/74 125/78 O2 Sat by Pulse 98 100 96 Oximetry 01/09/19 15:31 Temperature Pulse Rate Respiratory Rate Blood Pressure 125/78 O2 Sat by Pulse 98 Oximetry - Consultations Consultation #1: 01/09/19 18:20 Case was discussed with Dr. Graham before and after CT results. After his review he does not believe that there is any signs of any fistula given the patient received oral, IV, and rectal contrast. Recommends outpatient follow-up to the wound care clinic by Tuesday and for patient to call to schedule a follow- up visit on this date. <LJ ROSS - Last Filed: 01/09/19 18:29> Vital Signs 01/09/19 09:59 Temperature 98.2 F Pulse Rate 65 Respiratory 16 Rate Blood Pressure 106/59 O2 Sat by Pulse 98 Oximetry <ARCELIA EVANS S - Last Filed: 01/10/19 08:16> ED Medical Decision Making - Lab Data Result diagrams: 01/09/19 10:50 01/09/19 10:50 - Radiology Data Radiology results: report reviewed PROCEDURE: CT ABDOMEN PELVIS W CON TECHNIQUE: Computerized axial tomography of the abdomen and pelvis was performed after the IV injection of iodinated nonionic contrast. CT DOSE LENGTH PRODUCT: 4309.1 mGycm HISTORY: fecal matter from left buttock wound COMPARISONS: Prior CT scan of abdomen and pelvis 12/20/2018 . FINDINGS: Lower Lung dunn: Increased markings again seen in the lung bases. There appears to be fibrosis and bronchiectasis. No masses or effusions are identified. Mildly prominent lymph nodes again partially visualized in the infracarinal space. Upper Abdomen: Liver density mildly diffusely increased consistent with fatty infiltration. The liver is otherwise unremarkable. The gallbladder showed no abnormalities. The adrenal glands and pancreas show no abnormalities. The spleen does not appear to be enlarged. Kidneys, Ureters and Urinary bladder: No abnormalities are seen. Retroperitoneum: Atherosclerotic changes are seen in the abdominal aorta. No aneurysm is visualized. Nonspecific subcentimeter lymph nodes are seen in the retroperitoneum. No pathologically enlarged lymph nodes are identified. Bowel: A rectal tube appears to be in place. To the right of the rectal tube, perianal location there is inflammatory change in the subcutaneous tissue. This extends posteriorly and also along the right side of the buttocks posteriorly. On axial image 211 series 2 there are multiple bubbles of gas in the subcutaneous location, right perianal location measuring 6 cm x 1.5 cm suggesting an abscess. Cutaneous fissure cannot be excluded. Bowel loops otherwise are unremarkable. Normal- appearing appendix is seen in the right lower quadrant. Reproductive organs: Uterus and adnexa show no focal abnormalities. Other: No acute bone abnormalities are seen. IMPRESSION: Inflammatory change seen to the right of the anus. Skin thickening is seen extending inferiorly along the perineum and along the right side of the buttocks suggesting cellulitis. There is in addition a collection of bubbles of gas in the right perianal location suggesting an abscess. A perianal fissure cannot be excluded. I do not see evidence of bowel obstruction. Fatty infiltration of the liver. Fibrosis and bronchiectasis appear to be visualized in the lung bases. Mild adenopathy partially visualized infracarinal region. This appear to be present on the prior study as well. - Medical Decision Making CT abd/pelvis reviewed by on-call surgeon Dr. Graham. No signs of fistula formation and superficial abscess noted. Patient may follow-up on Tuesday to wound care clinic for further wound care. Antibiotics and pain medication prescribed by Dr. Evans. <LJ ROSS - Last Filed: 01/09/19 18:29> - Lab Data Result diagrams: 01/10/19 06:20 01/10/19 06:20 - Radiology Data Radiology results: report reviewed - Medical Decision Making This patient originally presented for removal of packing from a previous right buttock abscess. At the time there was concern that there was some feculent material that was coming from the abscess. This means either one of 2 things: The patient is poor cleaning herself after bowel movements and some of the feces has gotten into the wound, or the patient could have a fistula. I think a fistula is less likely given the area of the abscess and the size of the patient's body habitus as there would be a very long track to get through the soft tissue. I originally spoke with the on-call surgeon, Dr. Graham, who recommended triple contrast for the CT. Patient's labs were mostly unremarkable. She had some lactic acidosis at first but that resolved with pain medication and antibiotics. The CT shows a superficial abscess and no signs of any fistula formation. The patient was going to be discharged with pain medi cation and antibiotics but had continued pain and drainage and so instead she was admitted for surgical consult and pain management. - Differential Diagnosis abscess, fistula, cellulitis <ARCELIA EVANS - Last Filed: 01/10/19 08:16> Critical Care Time: No Critical care attestation.: If time is entered above; I have spent that time in minutes in the direct care of this critically ill patient, excluding procedure time. <LJ ROSS - Last Filed: 01/09/19 18:29> Critical Care Time: No Critical care attestation.: If time is entered above; I have spent that time in minutes in the direct care of this critically ill patient, excluding procedure time. <ARCELIA EVANS - Last Filed: 01/10/19 08:16> ED Disposition Is pt being admited?: No Does the pt Need Aspirin: No Time of Disposition: 18:22 <LJ ROSS - Last Filed: 01/09/19 18:29> Is pt being admited?: No Time of Disposition: 16:33 <ARCELIA EVANS - Last Filed: 01/10/19 08:16> Clinical Impression: Abscess of right buttock, Abscess and cellulitis of gluteal region Disposition: 09 OP ADMIT IP TO THIS HOSP Condition: Stable
--- NOTE | 2019-01-09 17:24 | Cat Scan Report ---
PROCEDURE: CT ABDOMEN PELVIS W CON TECHNIQUE: Computerized axial tomography of the abdomen and pelvis was performed after the IV inject ion of iodinated nonionic contrast. CT DOSE LENGTH PRODUCT: 4309.1 mGycm HISTORY: fecal matter from left buttock wound COMPARISONS: Prior CT scan of abdomen and pelvis 12/20/2018 . FINDINGS: Lower Lung dunn: Increased markings again seen in the lung bases. There appears to be fibrosis and bronchiectasis. No masses or effusions are identified. Mildly prominent lymph nodes again partially visualized in the infracarinal space. Upper Abdomen: Liver density mildly diffusely increased consistent with fatty infiltration. The live r is otherwise unremarkable. The gallbladder showed no abnormalities. The adrenal glands and pancreas show no abnormalities. The spleen does not appear to be enlarged. Kidneys, Ureters and Urinary bladder: No abnormalities are seen. Retroperitoneum: Atherosclerotic changes are seen in the abdominal aorta. No aneurysm is visualized. Nonspecific subcentimeter lymph nodes are seen in the retroperitoneum. No pathologically enlarged ly mph nodes are identified. Bowel: A rectal tube appears to be in place. To the right of the rectal tube, perianal location ther e is inflammatory change in the subcutaneous tissue. This extends posteriorly and also along the righ t side of the buttocks posteriorly. On axial image 211 series 2 there are multiple bubbles of gas in the subcutaneous location, right perianal location measuring 6 cm x 1.5 cm suggesting an abscess. Cut aneous fissure cannot be excluded. Bowel loops otherwise are unremarkable. Normal-appearing appendix is seen in the right lower quadrant. Reproductive organs: Uterus and adnexa show no focal abnormalities. Other: No acute bone abnormalities are seen. IMPRESSION: Inflammatory change seen to the right of the anus. Skin thickening is seen extending inferiorly along the perineum and along the right side of the buttocks suggesting cellulitis. There is in addition a collection of bubbles of gas in the right perianal location suggesting an abscess. A perianal fissure cannot be excluded. I do not see evidence of bowel obstruction. Fatty infiltration of the liver. Fibrosis and bronchiectasis appear to be visualized in the lung bases. Mild adenopathy partially visualized infracarinal region. This appear to be present on the prior stud y as well. This document is electronically signed by Gerald Guillermo MD., Jan 09 2019 05:22:07 PM ET
--- NOTE | 2019-01-09 19:28 | History and Physical Report ---
History of Present Illness Chief complaint: My butt hurts History of present illness: 38 YO Female with DM, HTN, Sarcoidosis, Obesity Hypoventilation, Chronic Respiratory Failure on 2 L Home oxygen, Paroxysmal Atrial Fib not on therapeutic anticoagulation currently on Beta Radha therapy presents to ED for evaluation. Pt states that she has experienced pain and tenderness to her right buttock for the past 2 days with persistent symptoms over the same time frame. Pain is 3/10, constant, worse with sitting on her right buttock, relieved with sitting on her left side. Pt was seen and evaluated by her wound care nurse and was found to have purulent drainage, redness, and tenderness to right buttock wound. Pt trans ported to [facility] via private vehicle. Pt seen and evaluated in ED and found to have evidence of Right Buttock Cellulitis and Abscess complicated by SIRS. Pt initiated on IV antibiotic therapy. Surgery team consulted in ED. Pt admitted to medical floor. Pt denies fever, chills, CP, Palpitations, NVD, Trauma, hematuria, BRBPR, or recent ill contacts. Prior admission on 10/01/18 reviewed. All listed medication reconciled at time of admission. Past History Past Medical History: diabetes, hypertension, sarcoidosis Past Surgical History: Social history: single. denies: smoking, alcohol abuse, prescription drug abuse Family history: diabetes, hypertension Medications and Allergies Allergies Allergy/AdvReac Type Severity Reaction Status Date / Time No Known Allergies Allergy Verified 01/09/19 09:53 Home Medications Medication Instructions Recorded Confirmed Last Taken Type Insulin NPH/Regular [NovoLIN 70/30] 50 unit SUB-Q BIDDIAB units 08/24/17 10/01/18 09/30/18 Rx ALBUTEROL NEB's [Proventil 0.083% 2.5 mg IH Q4HRT PRN #100 nebu 10/02/18 Unknown Rx NEBS] Aspirin [Aspirin BABY CHEW TAB] 81 mg PO DAILY #30 tab.chew 10/02/18 Unknown Rx Budesonide [Pulmicort Respules] 0.25 mg IH Q12HRT #60 nebu 10/02/18 Unknown Rx Glimepiride [Amaryl] 4 mg PO BID #60 tablet 10/02/18 12/20/18 Unknown Rx Torsemide [Demadex] 20 mg PO BID #60 tablet 10/02/18 12/20/18 Unknown Rx predniSONE [Deltasone] 20 mg PO QDAY #30 tablet 10/02/18 12/20/18 Unknown Rx Benzonatate [Tessalon Perles] 100 mg PO Q8HR PRN #20 capsule 12/20/18 Unknown Rx Metoprolol [Lopressor TAB] 50 mg PO QDAY 12/20/18 12/20/18 Unknown History predniSONE [Deltasone] 50 mg PO QDAY #5 tab 12/20/18 Unknown Rx Acetaminophen/Codeine [Tylenol 1 tab PO Q6H PRN #12 tab 01/02/19 Unknown Rx /Codeine # 3 tab] Sulfamethoxazole/Trimethoprim 1 each PO BID #20 tablet 01/02/19 Unknown Rx [Bactrim DS TAB] Clindamycin [Clindamycin CAP] 300 mg PO Q8H #21 cap 01/09/19 Unknown Rx HYDROcodone/APAP 5-325 [[place] 1 each PO Q6HR PRN #12 tablet 01/09/19 Unknown Rx 5/325] Review of Systems Constitutional: no weight loss, no weight gain, no fever, no chills Ears, nose, mouth and throat: no ear pain, no ear discharge, no tinnitis, no nose pain, no nasal congestion Breasts: no change in shape, no swelling, no mass Cardiovascular: no chest pain, no orthopnea, no palpitations, no rapid/irregular heart beat, no edema Respiratory: no cough, no cough with sputum, no excessive sputum, no hemoptysis, no shortness of breath Gastrointestinal: no nausea, no vomiting, no diarrhea, no change in bowel habits Genitourinary Female: no pelvic pain, no flank pain, no menorrhagia, no dysuria, no urinary frequency Rectal: no pain, no incontinence Integumentary: rash, redness, no jaundice, no boils, no blisters Neurological: no transient paralysis, no paralysis, no weakness, no parathesias, no numbness, no seizures Psychiatric: no memory loss, no change in sleep habits, no sleep disturbances, no insomnia Endocrine: no cold intolerance, no heat intolerance, no polyphagia, no polydipsia, no polyuria, no nocturia Hematologic/Lymphatic: no easy bruising, no easy bleeding, no lymphadenopathy Allergic/Immunologic: no urticaria, no allergic rhinitis, no wheezing, no angioedema Exam - Constitutional Vitals: Temp Pulse Resp BP Pulse Ox 98.2 F 65 16 125/78 98 01/09/19 09:59 01/09/19 09:59 01/09/19 09:59 01/09/19 15:31 01/09/19 15:31 General appearance: Present: mild distress, obese - EENT Eyes: Present: PERRL ENT: hearing intact, clear oral mucosa - Neck Neck: Present: supple, normal ROM - Respiratory Respiratory effort: normal Respiratory: bilateral: CTA - Cardiovascular Heart Sounds: Present: S1 & S2. Absent: rub, click - Extremities Extremities: pulses symmetrical, No edema Peripheral Pulses: within normal limits - Abdominal General gastrointestinal: Present: soft, non-tender, non-distended, normal bowel sounds Female genitourinary: Present: normal - Rectal Rectal Exam: normal exam-external/orifice - Integumentary Integumentary: Present: warm (Right buttock), erythema - Musculoskeletal Musculoskeletal: gait normal, strength equal bilaterally - Psychiatric Psychiatric: appropriate mood/affect, intact judgment & insight - Neurologic Neurologic: CNII-XII intact, moves all extremities Results - Labs CBC & Chem 7: 01/09/19 10:50 01/09/19 10:50 Labs: Abnormal lab results 01/09/19 01/09/19 01/09/19 Range/Units 10:50 10:50 11:11 WBC 12.9 H (4.5-11.0) K/mm3 MCH 26 L (28-32) pg RDW 16.3 H (13.2-15.2) % Sodium 136 L (137-145) mmol/L Chloride 97.9 L (98-107) mmol/L Glucose 130 H (65-100) mg/dL Lactic Acid 2.30 H* (0.7-2.0) mmol/L Albumin 2.7 L (3.9-5) g/dL 01/09/19 Range/Units 13:45 WBC (4.5-11.0) K/mm3 MCH (28-32) pg RDW (13.2-15.2) % Sodium (137-145) mmol/L Chloride (98-107) mmol/L Glucose (65-100) mg/dL Lactic Acid 2.80 H* (0.7-2.0) mmol/L Albumin (3.9-5) g/dL Assessment and Plan - Patient Problems (1) SIRS (systemic inflammatory response syndrome) Current Visit: Yes Status: Acute Plan to address problem: IV antibiotic therapy, CBC, CMP, Urinalysis, chest x ray, serial lactic acid, IVF resuscitation therapy, repeat cbc in AM. (2) Obesity hypoventilation syndrome Current Visit: Yes Status: Acute Plan to address problem: Supplemental oxygen, nebulizer therapy, NIPPV as clinically indicated, balanced diet, increased physical activity at discharge (3) Diabetes Current Visit: Yes Status: Acute Plan to address problem: ADA diet, sliding scale insulin, accu check, hypoglycemia protocol (4) Sarcoidosis Current Visit: Yes Status: Acute Plan to address problem: Supportive care, continue steroid therapy, (5) Abscess of right buttock Current Visit: Yes Status: Acute Plan to address problem: Surgery consulted in ED, IV antibiotic therapy, No surgical intervention at this time, wound care (6) Acidosis Current Visit: Yes Status: Acute Plan to address problem: IVF resuscitation therapy, Treat SIRS, repeat lactic acid after resuscitation completed, (7) DVT prophylaxis Current Visit: Yes Status: Acute Plan to address problem: SCD to BLE while in bed, Prophylactic lovenox
[2019-01-09] MEDS ORDERED: SODIUM CHLORIDE FLUSH SYRINGE 10 ML IV PRN (19:32)
[2019-01-09] MEDS ORDERED: ZOFRAN IV PRN (19:32)
[2019-01-09] MEDS ORDERED: PROVENTIL IH PRN (19:32)
[2019-01-09] MEDS ORDERED: TYLENOL PO PRN (19:32)
[2019-01-09] MEDS ORDERED: TESSALON PERLES PO PRN (19:34)
[2019-01-09] MEDS ORDERED: VANCOMYCIN/NS 1 GM/250 ML 1 GM/250 ML BAG IV ONE (20:22)
[2019-01-09] MEDS ORDERED: D50W (25GM) Syringe IV PRN (20:31)
[2019-01-09] MEDS ORDERED: VANCOMYCIN 2,000 MG in NACL 0.9% 500 ML 500 ML IV ONE (21:00)
[2019-01-09] MEDS ORDERED: VANCOMYCIN PHARMACY TO DOSE IV SCH (21:00)
[2019-01-09] MEDS: PULMICORT IH SCH (21:32)
[2019-01-09] MEDS ORDERED: NON-FORMULARY (Torsemide [Demadex] 20 MG) PO SCH (22:00)
[2019-01-09] MEDS: HumuLIN R SUB-Q SCH (23:14)
[2019-01-09] MEDS: SODIUM CHLORIDE FLUSH SYRINGE 10 ML IV SCH (23:22)
[2019-01-09] MEDS: PERCOCET 5/325 PO PRN (23:36)
[2019-01-10] MEDS: DEMADEX PO SCH ×2 (06:37→18:07)
[2019-01-10] MEDS: PERCOCET 5/325 PO PRN ×2 (06:37→12:35)
[2019-01-10 07:16] LABS: Basophils # (Auto) 0.1 K/mm3 (0.0-0.1); Basophils % (Auto) 0.6 % (0.0-1.8); Eosinophils # (Auto) 0.2 K/mm3 (0.0-0.4); Eosinophils % (Auto) 1.9 % (0.0-4.3); Hemoglobin 11.4 gm/dl (10.1-14.3); Lymphocytes # (Auto) 2.3 K/mm3 (1.2-5.4); Lymphocytes % (Auto) 21.1 % (13.4-35.0); Mean Corpuscular HGB Conc 32 % (30-34); Mean Corpuscular Volume 83 fl (79-97); Monocytes # (Auto) 1.2 K/mm3 (0.0-0.8); Monocytes % (Auto) 10.9 % (0.0-7.3); Platelet Count 302 K/mm3 (140-440); Red Blood Count 4.34 M/mm3 (3.65-5.03); Red Cell Distribution Width 16.2 % (13.2-15.2)
[2019-01-10 07:32] LABS: Alanine Aminotransferase 16 units/L (7-56); Albumin 2.9 g/dL (3.9-5); BUN/Creatinine Ratio 11; Blood Urea Nitrogen 9 mg/dL (7-17); Calcium 8.8 mg/dL (8.4-10.2); Hemolysis Index 0
[2019-01-10] MEDS: PULMICORT IH SCH ×2 (08:14→20:07)
--- NOTE | 2019-01-10 09:07 | Consultation ---
History of Present Illness Consult date: 01/10/19 Reason for consult: wound care Requesting physician: [facility] ROSS Chief complaint: right buttock infection - History of present illness History of present illness: 38yo F with DM presented to the emergency room last night for wound packing change. This is the first time she has had a buttock abscess. Denies any fevers, chills, nausea, vomiting. Emergency room was concerned that there was stool in the wound. There was concern for fistula. Patient was admitted for further evaluation and care. Other than localized pain, patient has no other complaints. Past History Past Medical History: diabetes, hypertension, sarcoidosis Past Surgical History: Social history: single. denies: smoking, alcohol abuse, prescription drug abuse Family history: diabetes, hypertension Medications and Allergies Allergies Allergy/AdvReac Type Severity Reaction Status Date / Time No Known Allergies Allergy Verified 01/09/19 09:53 Home Medications Medication Instructions Recorded Confirmed Last Taken Type Insulin NPH/Regular [NovoLIN 70/30] 50 unit SUB-Q BIDDIAB units 08/24/17 10/01/18 09/30/18 Rx ALBUTEROL NEB's [Proventil 0.083% 2.5 mg IH Q4HRT PRN #100 nebu 10/02/18 Unknown Rx NEBS] Aspirin [Aspirin BABY CHEW TAB] 81 mg PO DAILY #30 tab.chew 10/02/18 Unknown Rx Budesonide [Pulmicort Respules] 0.25 mg IH Q12HRT #60 nebu 10/02/18 Unknown Rx Glimepiride [Amaryl] 4 mg PO BID #60 tablet 10/02/18 12/20/18 Unknown Rx Torsemide [Demadex] 20 mg PO BID #60 tablet 10/02/18 12/20/18 Unknown Rx predniSONE [Deltasone] 20 mg PO QDAY #30 tablet 10/02/18 12/20/18 Unknown Rx Benzonatate [Tessalon Perles] 100 mg PO Q8HR PRN #20 capsule 12/20/18 Unknown Rx Metoprolol [Lopressor TAB] 50 mg PO QDAY 12/20/18 12/20/18 Unknown History predniSONE [Deltasone] 50 mg PO QDAY #5 tab 12/20/18 Unknown Rx Acetaminophen/Codeine [Tylenol 1 tab PO Q6H PRN #12 tab 01/02/19 Unknown Rx /Codeine # 3 tab] Sulfamethoxazole/Trimethoprim 1 each PO BID #20 tablet 01/02/19 Unknown Rx [Bactrim DS TAB] Clindamycin [Clindamycin CAP] 300 mg PO Q8H #21 cap 01/09/19 Unknown Rx HYDROcodone/APAP 5-325 [[place] 1 each PO Q6HR PRN #12 tablet 01/09/19 Unknown Rx 5/325] Active Meds: Active Medications Acetaminophen (Tylenol) 650 mg PO Q4H PRN PRN Reason: Pain MILD(1-3)/Fever >100.5/IBRAHIM Albuterol (Proventil) 2.5 mg IH Q4HRT PRN PRN Reason: Shortness Of Breath Aspirin (Baby Aspirin) 81 mg PO DAILY GABRIEL Benzonatate (Tessalon Perles) 100 mg PO Q8HR PRN PRN Reason: Cough Budesonide (Pulmicort) 0.25 mg IH Q12HRT [facility] Last Admin: 01/10/19 08:14 Dose: Not Given Documented by: Dextrose (D50w (25gm) Syringe) 50 ml IV PRN PRN PRN Reason: Hypoglycemia Enoxaparin Sodium (Lovenox) 40 mg SUB-Q QDAY@2200 GABRIEL Vancomycin HCl 1,500 mg/ (Sodium Chloride) 530 mls @ 333.333 mls/hr IV Q12H [facility] Insulin Human Isoph/Insulin Regular (Humulin 70/30) 50 unit SUB-Q BIDDIAB [facility] Insulin Human Regular (Humulin R) 0 units SUB-Q ACHS [facility]; Protocol Last Admin: 01/09/19 23:14 Dose: Not Given Documented by: Lidocaine/Epinephrine (Xylocaine 2%/Epi 1:100,000) 20 ml INFILTRATI ONCE ONE Stop: 01/10/19 09:00 Metoprolol Succinate (Toprol Xl) 50 mg PO QDAY [facility] Ondansetron HCl (Zofran) 4 mg IV Q8H PRN PRN Reason: Nausea And Vomiting Oxycodone/Acetaminophen (Percocet 5/325) 1 tab PO Q6H PRN PRN Reason: Pain, Moderate (4-6) Last Admin: 01/10/19 06:37 Dose: 1 tab Documented by: Prednisone (Deltasone) 20 mg PO QDAY [facility] Sodium Chloride (Sodium Chloride Flush Syringe 10 Ml) 10 ml IV BID [facility] Last Admin: 01/09/19 23:22 Dose: 10 ml Documented by: Sodium Chloride (Sodium Chloride Flush Syringe 10 Ml) 10 ml IV PRN PRN PRN Reason: LINE FLUSH Torsemide (Demadex) 20 mg PO BID@0600,1800 [facility] Last Admin: 01/10/19 06:37 Dose: 20 mg Documented by: Review of Systems - Constitutional no fever, no chills - Cardiovascular no chest pain - Respiratory no cough, no shortness of breath - Gastrointestinal no abdominal pain, no nausea, no vomiting - Genitourinary Genitourinary: no dysuria - Integumentary wounds Exam Vital Signs Temp Pulse Resp BP Pulse Ox 98.2 F 65 16 106/59 98 01/09/19 09:59 01/09/19 09:59 01/09/19 09:59 01/09/19 09:59 01/09/19 09:59 - General physical appearance Positive: no distress, no pain, obese, other (anxious) - Eyes Positive: normal occular movement - Respiratory Positive: normal expansion, normal respiratory effort - Abdomen Abdomen: Present: soft. Absent: tender - Rectum Rectum: other (1cm opening noted on inner aspect of right buttock. +purulent drainage. +induration and tenderness. No feculent discharge. Wound probed to about 3x4cm cavity under the opening. ) - Neurologic Neurologic: alert and oriented to time, place and person, motor strength and sensation are grossly intact - Psychiatric Psychiatric: appropriate mood/affect, intact judgment & insight, cooperative Results - Labs 01/10/19 06:20 01/10/19 06:20 Abnormal lab results 01/09/19 01/09/19 01/09/19 Range/Units 10:50 10:50 10:50 WBC 12.9 H (4.5-11.0) K/mm3 MCH 26 L (28-32) pg RDW 16.3 H (13.2-15.2) % [place] % (Auto) (0.0-7.3) % [place] # (0.0-0.8) K/mm3 Sodium 136 L (137-145) mmol/L Potassium (3.6-5.0) mmol/L Chloride 97.9 L (98-107) mmol/L Glucose 130 H (65-100) mg/dL POC Glucose (70-105) Hemoglobin A1c 13.9 H (4-6) % Lactic Acid (0.7-2.0) mmol/L Albumin 2.7 L (3.9-5) g/dL 01/09/19 01/09/19 01/09/19 Range/Units 11:11 13:45 22:23 WBC (4.5-11.0) K/mm3 MCH (28-32) pg RDW (13.2-15.2) % [place] % (Auto) (0.0-7.3) % [place] # (0.0-0.8) K/mm3 Sodium (137-145) mmol/L Potassium (3.6-5.0) mmol/L Chloride (98-107) mmol/L Glucose (65-100) mg/dL POC Glucose 139 H (70-105) Hemoglobin A1c (4-6) % Lactic Acid 2.30 H* 2.80 H* (0.7-2.0) mmol/L Albumin (3.9-5) g/dL 01/10/19 01/10/19 Range/Units 06:20 06:20 WBC (4.5-11.0) K/mm3 MCH 26 L (28-32) pg RDW 16.2 H (13.2-15.2) % [place] % (Auto) 10.9 H (0.0-7.3) % [place] # 1.2 H (0.0-0.8) K/mm3 Sodium (137-145) mmol/L Potassium 3.5 L (3.6-5.0) mmol/L Chloride (98-107) mmol/L Glucose (65-100) mg/dL POC Glucose (70-105) Hemoglobin A1c (4-6) % Lactic Acid (0.7-2.0) mmol/L Albumin 2.9 L (3.9-5) g/dL Diabetes panel 01/09/19 01/09/19 01/10/19 Range/Units 10:50 10:50 06:20 Sodium 136 L 140 (137-145) mmol/L Potassium 3.7 3.5 L (3.6-5.0) mmol/L Chloride 97.9 L 101.8 (98-107) mmol/L Carbon Dioxide 25 27 (22-30) mmol/L BUN 14 9 (7-17) mg/dL Creatinine 0.9 0.8 (0.7-1.2) mg/dL Glucose 130 H 85 (65-100) mg/dL Hemoglobin A1c 13.9 H (4-6) % Calcium 9.2 8.8 (8.4-10.2) mg/dL AST 12 21 (5-40) units/L ALT 14 16 (7-56) units/L Alkaline Phosphatase 79 85 (35-129) units/L Total Protein 6.7 6.7 (6.3-8.2) g/dL Albumin 2.7 L 2.9 L (3.9-5) g/dL Calcium panel 01/09/19 01/10/19 Range/Units 10:50 06:20 Calcium 9.2 8.8 (8.4-10.2) mg/dL Albumin 2.7 L 2.9 L (3.9-5) g/dL Pituitary panel 01/09/19 01/10/19 Range/Units 10:50 06:20 Sodium 136 L 140 (137-145) mmol/L Potassium 3.7 3.5 L (3.6-5.0) mmol/L Chloride 97.9 L 101.8 (98-107) mmol/L Carbon Dioxide 25 27 (22-30) mmol/L BUN 14 9 (7-17) mg/dL Creatinine 0.9 0.8 (0.7-1.2) mg/dL Glucose 130 H 85 (65-100) mg/dL Calcium 9.2 8.8 (8.4-10.2) mg/dL Adrenal panel 01/09/19 01/10/19 Range/Units 10:50 06:20 Sodium 136 L 140 (137-145) mmol/L Potassium 3.7 3.5 L (3.6-5.0) mmol/L Chloride 97.9 L 101.8 (98-107) mmol/L Carbon Dioxide 25 27 (22-30) mmol/L BUN 14 9 (7-17) mg/dL Creatinine 0.9 0.8 (0.7-1.2) mg/dL Glucose 130 H 85 (65-100) mg/dL Calcium 9.2 8.8 (8.4-10.2) mg/dL Total Bilirubin < 0.20 0.20 (0.1-1.2) mg/dL AST 12 21 (5-40) units/L ALT 14 16 (7-56) units/L Alkaline Phosphatase 79 85 (35-129) units/L Total Protein 6.7 6.7 (6.3-8.2) g/dL Albumin 2.7 L 2.9 L (3.9-5) g/dL - Imaging CT scan - abdomen: report reviewed, image reviewed CT scan - pelvis: report reviewed, image reviewed Assessment and Plan - Patient Problems (1) Abscess of right buttock Current Visit: Yes Status: Acute Plan to address problem: Pt stable. Patient has not received formal wound care yet. Very unusual to have a fistula with the first episode of a abscess. Also, based on the CT scan, I do not believe that there is a fistula. At this point, I will open up the wound to allow for adequate drainage. I will see the patient with the wound care nurse and we will decide on a wound care plan. Most likely, the patient will be set up for wound care clinic follow-up. I will return later this jesenia ramirez for the bedside incision and drainage. Consent will be obtained at that time. Please call with questions Time=30min
[2019-01-10] MEDS: HumuLIN R SUB-Q SCH ×4 (09:32→22:17)
[2019-01-10] MEDS ORDERED: XYLOCAINE 2%/EPI 1:100,000 INFILTRATI ONE (10:00)
[2019-01-10] MEDS: TOPROL XL PO SCH (10:58)
[2019-01-10] MEDS: DELTASONE PO SCH (10:58)
[2019-01-10] MEDS: BABY ASPIRIN PO SCH (10:58)
[2019-01-10] MEDS: SODIUM CHLORIDE FLUSH SYRINGE 10 ML IV SCH ×2 (10:59→22:18)
[2019-01-10] MEDS: VANCOMYCIN 1,500 MG in NACL 0.9% 500 ML 500 ML IV SCH (11:12)
--- NOTE | 2019-01-10 11:14 | Procedure Note ---
Date of procedure: 01/10/19 Pre-op diagnosis: right buttock abscess Post-op diagnosis: same Procedure: I&D of right buttock abscess Consent was obtained. Timeout was done. Skin was prepped with Betadine. 2% lidocaine with epinephrine was injected into the skin through the opening that was already present. Skin was opened sharply with a scalpel. The skin was opened up both medially and inferiorly. The wedge of skin in between was excised with scissors. Cavity was probed. There was no feculent material or purulent material in the wound. Wound was thoroughly washed out with saline. Wound care nurse then cleaned the surrounding skin and packed the wound. Patient tolerated the procedure well. She was very emotional due to fear. She denied pain. There were no complications. Findings: approx 4x5cm cavity in subcutaneous space. Anesthesia: local Surgeon: YAMILE ALONSO Estimated blood loss: minimal Pathology: none Condition: stable Disposition: floor
--- NOTE | 2019-01-10 13:04 | Progress Note ---
Assessment and Plan Assessment and plan: 38 YO Female with DM, HTN, Sarcoidosis, Obesity Hypoventilation, Chronic Respi ratory Failure on 2 L Home oxygen, Paroxysmal Atrial Fib not on therapeutic anticoagulation currently on Beta Radha therapy presents with R buttock pain/swelling Past History Past Medical History: diabetes, hypertension, sarcoidosis, obesity R buttock abscess/cellulitis -sp I and D on 01/10 -IV abx, and pain meds -tentative dc tomorrow on oral abx dvt ppx- early ambulation' htn. dm cont home meds patient is self pay, she was adviced to apply for health insurance -case mgt made aware History Interval history: Continues to complain of right buttock pain, it's improved since incision and drainage Review of systems Constitutional: No fevers, no malaise, no joint pains CVS: No chest pain, no orthopnea, no pedal edema GI: No abdominal pain, no diarrhea, no vomiting, no constipation Respiratory: No shortness of breath, no wheezing, no coughing Hospitalist Physical - Physical exam Narrative exam: General.: Obese HEENT: Moist mucous membranes, extraocular muscles intact, no lymphadenopathy Neck: supple Cardiac: S1-S2 heard Lungs: clear to auscultation bilaterally Abdomen: soft , nontender, nondistended, bowel sounds positive Extremities: no edema clubbing or cyanosis Skin: Surgical dressing was not removed, there is surrounding erythema, induration and tendernessoss Neuro; no focal deficits Psych: calm, and cooperative - Constitutional Vitals: Temp Pulse Resp BP Pulse Ox 97.8 F 110 H 20 110/51 98 01/10/19 05:18 01/10/19 10:58 01/10/19 05:18 01/10/19 05:18 01/10/19 05:18 General appearance: Present: mild distress, obese Results - Labs CBC & Chem 7: 01/10/19 06:20 01/10/19 06:20 Labs: Laboratory Last Values WBC 10.8 K/mm3 (4.5-11.0) 01/10/19 06:20 RBC 4.34 M/mm3 (3.65-5.03) 01/10/19 06:20 Hgb 11.4 gm/dl (10.1-14.3) 01/10/19 06:20 Hct 36.0 % (30.3-42.9) 01/10/19 06:20 MCV 83 fl (79-97) 01/10/19 06:20 MCH 26 pg (28-32) L 01/10/19 06:20 MCHC 32 % (30-34) 01/10/19 06:20 RDW 16.2 % (13.2-15.2) H 01/10/19 06:20 Plt Count 302 K/mm3 (140-440) 01/10/19 06:20 Lymph % (Auto) 21.1 % (13.4-35.0) 01/10/19 06:20 [place] % (Auto) 10.9 % (0.0-7.3) H 01/10/19 06:20 Eos % (Auto) 1.9 % (0.0-4.3) 01/10/19 06:20 Baso % (Auto) 0.6 % (0.0-1.8) 01/10/19 06:20 Lymph # 2.3 K/mm3 (1.2-5.4) 01/10/19 06:20 [place] # 1.2 K/mm3 (0.0-0.8) H 01/10/19 06:20 Eos # 0.2 K/mm3 (0.0-0.4) 01/10/19 06:20 Baso # 0.1 K/mm3 (0.0-0.1) 01/10/19 06:20 Seg Neutrophils % 65.5 % (40.0-70.0) 01/10/19 06:20 Seg Neutrophils # 7.1 K/mm3 (1.8-7.7) 01/10/19 06:20 Sodium 140 mmol/L (137-145) 01/10/19 06:20 Potassium 3.5 mmol/L (3.6-5.0) L 01/10/19 06:20 Chloride 101.8 mmol/L (98-107) 01/10/19 06:20 Carbon Dioxide 27 mmol/L (22-30) 01/10/19 06:20 15 mmol/L 01/10/19 06:20 BUN 9 mg/dL (7-17) 01/10/19 06:20 0.8 mg/dL (0.7-1.2) 01/10/19 06:20 Estimated GFR > 60 ml/min 01/10/19 06:20 11 % 01/10/19 06:20 Glucose 85 mg/dL (65-100) 01/10/19 06:20 POC Glucose 192 (70-105) H 01/10/19 11:34 13.9 % (4-6) H 01/09/19 10:50 Lactic Acid 1.50 mmol/L (0.7-2.0) 01/09/19 15:27 Calcium 8.8 mg/dL (8.4-10.2) 01/10/19 06:20 0.20 mg/dL (0.1-1.2) 01/10/19 06:20 AST 21 units/L (5-40) 01/10/19 06:20 ALT 16 units/L (7-56) 01/10/19 06:20 85 units/L (35-129) 01/10/19 06:20 6.7 g/dL (6.3-8.2) 01/10/19 06:20 2.9 g/dL (3.9-5) L 01/10/19 06:20 0.8 % 01/10/19 06:20 Active Medications - Current Medications Current Medications: Generic Name Dose Route Start Last Admin Trade Name Freq PRN Reason Stop Dose Admin Acetaminophen 650 mg 01/09/19 19:32 Tylenol PO Q4H PRN Pain MILD(1-3)/Fever >100.5/IBRAHIM Albuterol 2.5 mg 01/09/19 19:32 Proventil IH Q4HRT PRN Shortness Of Breath Aspirin 81 mg 01/10/19 10:00 01/10/19 10:58 Baby Aspirin PO 81 mg DAILY [facility] Administration Benzonatate 100 mg 01/09/19 19:34 Tessalon Perles PO Q8HR PRN Cough Budesonide 0.25 mg 01/09/19 20:00 01/10/19 08:14 Pulmicort IH Not Given Q12HRT GABRIEL Dextrose 50 ml 01/09/19 20:31 D50w (25gm) Syringe IV PRN PRN Hypoglycemia Enoxaparin Sodium 40 mg 01/10/19 22:00 Lovenox SUB-Q QDAY@2200 GABRIEL Hydromorphone HCl 1 mg 01/10/19 12:08 Dilaudid IV Q4H PRN Pain , Severe (7-10) Vancomycin HCl 1,500 mg/ 530 mls @ 333.333 mls/hr 01/10/19 11:00 01/10/19 11:12 Sodium Chloride IV 333.333 mls/hr Q12H GABRIEL Administration Insulin Human Isoph/Insulin Regular 50 unit 01/10/19 08:00 01/10/19 11:13 Humulin 70/30 SUB-Q 50 unit BIDDIAB GABRIEL Administration Insulin Human Regular 0 units 01/09/19 22:00 01/10/19 09:32 Humulin R SUB-Q Not Given ACHS [facility] Protocol Metoprolol Succinate 50 mg 01/10/19 10:00 01/10/19 10:58 Toprol Xl PO 50 mg QDAY GABRIEL Administration Ondansetron HCl 4 mg 01/09/19 19:32 Zofran IV Q8H PRN Nausea And Vomiting Oxycodone/Acetaminophen 1 tab 01/09/19 19:32 01/10/19 06:37 Percocet 5/325 PO 1 tab Q6H PRN Administration Pain, Moderate (4-6) Prednisone 20 mg 01/10/19 10:00 01/10/19 10:58 Deltasone PO 20 mg QDAY GABRIEL Administration Sodium Chloride 10 ml 01/09/19 22:00 01/10/19 10:59 Sodium Chloride Flush Syringe 10 Ml IV 10 ml BID GABRIEL Administration Sodium Chloride 10 ml 01/09/19 19:32 Sodium Chloride Flush Syringe 10 Ml IV PRN PRN LINE FLUSH Torsemide 20 mg 01/10/19 06:00 01/10/19 06:37 Demadex PO 20 mg BID@0600,1800 GABRIEL Administration
[2019-01-10] MEDS: DILAUDID IV PRN (20:05)
[2019-01-10] MEDS: LOVENOX SUB-Q SCH (22:17)
[2019-01-11] MEDS: DILAUDID IV PRN ×2 (00:30→13:20)
[2019-01-11] MEDS: VANCOMYCIN 1,500 MG in NACL 0.9% 500 ML 500 ML IV SCH ×2 (00:30→10:50)
[2019-01-11] MEDS: DEMADEX PO SCH ×2 (06:10→17:48)
[2019-01-11] MEDS: PULMICORT IH SCH ×2 (08:10→19:59)
[2019-01-11] MEDS: HumuLIN R SUB-Q SCH ×4 (08:39→23:55)
[2019-01-11] MEDS: PERCOCET 5/325 PO PRN (08:55)
--- NOTE | 2019-01-11 09:08 | Progress Note ---
Assessment and Plan - Patient Problems (1) Abscess of right buttock Current Visit: Yes Status: Acute Plan to address problem: Pt stable. s/p I&D - 01/10 - POD#1. as patient has limited options due to no help at home and no insurance, we discussed ways in which she can care for the wound to give it the best chance to heal. The main treatment will be the Sitz baths frequently to keep the wound clean. She may apply a pad over it to keep her clothes clean. I gave her my business card in case she has questions. She was appreciative of the help. May be d/c'd from my standpoint. Please call with questions Subjective Date of service: 01/11/19 Patient Reports: Positive: no new complaints Objective Vital Signs - 12hr 01/10/19 01/11/19 01/11/19 23:51 05:54 08:04 Temperature 97.8 F 98.6 F Pulse Rate 94 H 89 Respiratory 16 18 Rate Blood Pressure 100/65 112/64 O2 Sat by Pulse 97 100 96 Oximetry - General physical appearance no distress, no pain - Respiratory normal expansion, normal respiratory effort - Psychiatric oriented to time, oriented to person, oriented to place, speech is normal, memory intact - Labs 01/10/19 06:20 01/10/19 06:20
[2019-01-11] MEDS: BABY ASPIRIN PO SCH (10:35)
[2019-01-11] MEDS: DELTASONE PO SCH (10:35)
[2019-01-11] MEDS: TOPROL XL PO SCH (10:35)
[2019-01-11] MEDS: SODIUM CHLORIDE FLUSH SYRINGE 10 ML IV SCH ×2 (10:36→22:01)
--- NOTE | 2019-01-11 20:35 | Event Note ---
Date: 01/11/19 Received consultation for right perianal abscess s/p bedside I+D, wound culture showed usual skin osman. MRSA screening negative. Stop vancomycin, start ceftriaxone and flagyl. Dr Oquendo to see patient tomorrow.
[2019-01-11] MEDS ORDERED: ROCEPHIN/NS 2 GM/100 ML 2 GM/100 ML BAG IV SCH ×2 (21:00)
[2019-01-11] MEDS: FLAGYL 500 MG/100 ML 500 MG/100 ML BAG IV SCH (22:00)
[2019-01-11] MEDS: LOVENOX SUB-Q SCH (22:01)
[2019-01-12] MEDS: PERCOCET 5/325 PO PRN (04:08)
[2019-01-12] MEDS: FLAGYL 500 MG/100 ML 500 MG/100 ML BAG IV SCH (06:06)
[2019-01-12] MEDS: DEMADEX PO SCH (06:06)
[2019-01-12 06:41] VITALS: BP 122/59
[2019-01-12] MEDS: PULMICORT IH SCH (08:39)
[2019-01-12] MEDS: HumuLIN R SUB-Q SCH (08:40)
--- NOTE | 2019-01-12 09:25 | Progress Note ---
Assessment and Plan R buttock abscess/cellulitis -sp I and D on 01/10 -IV abx, and pain meds -tentative dc on oral abx dvt ppx- early ambulation' htn. dm cont home meds patient is self pay, she was adviced to apply for health insurance -case mgt made aware Past History Past Medical History: diabetes, hypertension, sarcoidosis, obesity Subjective Date of service: 01/11/19 Principal diagnosis: Buttock abscess Interval history: Doing better Objective - Constitutional Vitals: Vital Signs - 12hr 01/11/19 01/12/19 01/12/19 23:48 05:43 08:40 Temperature 98.0 F 98.0 F Pulse Rate 97 H 88 Respiratory 16 16 Rate Blood Pressure 102/53 122/59 O2 Sat by Pulse 99 100 99 Oximetry General appearance: Present: no acute distress, well-nourished - EENT Eyes: PERRL, EOM intact ENT: hearing intact, clear oral mucosa Ears: bilateral: normal - Neck Neck: supple, normal ROM - Respiratory Respiratory effort: normal Respiratory: bilateral: CTA - Breasts Breasts: normal - Cardiovascular Heart rate: 78 Rhythm: regular Heart Sounds: Present: S1 & S2. Absent: gallop, rub Extremities: pulses intact, No edema, normal color, Full ROM - Gastrointestinal General gastrointestinal: Present: soft, non-tender, non-distended, normal bowel sounds Rectal Exam: deferred - Genitourinary Female genitourinary: normal - Integumentary Integumentary: clear, warm, dry - Musculoskeletal Musculoskeletal: 1, strength equal bilaterally - Neurologic Neurologic: moves all extremities - Psychiatric Psychiatric: memory intact, appropriate mood/affect, intact judgment & insight - Allied health notes Allied health notes reviewed: nursing, case management - Labs CBC & Chem 7: 01/10/19 06:20 01/10/19 06:20 Labs: Abnormal lab results 01/11/19 01/11/19 01/11/19 Range/Units 11:51 16:54 21:30 POC Glucose 163 H 154 H 208 H (70-105)
--- NOTE | 2019-01-12 09:30 | Discharge Summary ---
Providers - Providers Date of Admission: 01/09/19 19:32 Date of discharge: 01/12/19 Attending physician: PELON YUAN 01/09/19 19:02 Consult to Physician [CONS] Urgent Comment: Consulting Provider: YAMILE ALONSO Physician Instructions: Reason For Exam: right buttock abscess 01/10/19 06:47 Consult to Wound/ET Nurse [CONS] Routine Reason For Exam: wound eval 01/10/19 16:51 Consult to Physician [CONS] Routine Comment: Consulting Provider: MADONNA GARCIA Physician Instructions: Reason For Exam: buttock abscess [facility] Condition: Stable Hospital course: R buttock abscess/cellulitis sp I and D on 01/10 IV abx, and pain meds dc on oral abx--Keflex and Bactrim ds 2 bid ambulation' htn. dm cont home meds patient is self pay, she was adviced to apply for health insurance -case mgt made aware Past History Past Medical History: diabetes, hypertension, sarcoidosis, obesity Disposition: DC- TO HOME OR SELFCARE Core Measure Documentation - Palliative Care Palliative Care/ Comfort Measures: Not Applicable - Core Measures Any of the following diagnoses?: none Exam - Constitutional Vitals: Temp Pulse Resp BP Pulse Ox 98.0 F 88 16 122/59 99 01/12/19 05:43 01/12/19 05:43 01/12/19 05:43 01/12/19 05:43 01/12/19 08:40 General appearance: Present: no acute distress, well-nourished - EENT Eyes: Present: PERRL ENT: hearing intact, clear oral mucosa - Neck Neck: Present: supple, normal ROM - Respiratory Respiratory effort: normal Respiratory: bilateral: CTA - Cardiovascular Heart rate: 78 Rhythm: regular Heart Sounds: Present: S1 & S2. Absent: rub, click - Extremities Extremities: pulses symmetrical, No edema, abnormal (Abscess- no drainage,Indurated.) Peripheral Pulses: within normal limits - Abdominal General gastrointestinal: Present: soft, non-tender, non-distended, normal bowel sounds Female genitourinary: Present: normal - Rectal Rectal Exam: deferred - Integumentary Integumentary: Present: clear, warm, dry - Musculoskeletal Musculoskeletal: gait normal, strength equal bilaterally - Psychiatric Psychiatric: appropriate mood/affect, intact judgment & insight - Neurologic Neurologic: CNII-XII intact, moves all extremities - Allied Health Allied health notes reviewed: nursing, case management Plan Activity: no restrictions Diet: diabetic Wound: open to air, keep clean and dry, change dressing, per your surgeon's advice Special Instructions: smoking cessation Follow up with: [facility] [Outside] - 01/12/19 (call clinic tomorrow and tell the Dr Alonso wants you to follow up in wound care clinic by this tuesday. They should be able to accomodate you.) YAMILE ALONSO MD [Staff Physician] - 2-3 Days Prescriptions: Clindamycin [Clindamycin CAP] 300 mg PO Q8H #21 cap HYDROcodone/APAP 5-325 [[place] 5/325] 1 each PO Q6HR PRN #12 tablet PRN Reason: Pain
[2019-01-12] MEDS: TOPROL XL PO SCH (09:48)
[2019-01-12] MEDS: DELTASONE PO SCH (09:48)
[2019-01-12] MEDS: SODIUM CHLORIDE FLUSH SYRINGE 10 ML IV SCH (09:48)
[2019-01-12] MEDS: BABY ASPIRIN PO SCH (09:48)
[2019-01-13] MEDS ORDERED: SUBLIMAZE ONE (12:44)
== END 2019-01-12 10:38 | disposition home health service (06) | DRG 603 ==
LOC: ED 09:52 → 3A 19:32
PROVIDERS: ADMIT Internal Medicine; ATTEND Internal Medicine
PROC: 0Y903ZZ Drainage of Right Buttock, Percutaneous Approach (ICD-10-PCS; principal; 2019-01-10)
DX: L02.31 Cutaneous abscess of buttock (principal); E66.2 Morbid (severe) obesity with alveolar hypoventilation; J96.10 Chronic respiratory failure, unspecified whether with hypoxia or hypercapnia; R65.10 Systemic inflammatory response syndrome (SIRS) of non-infectious origin without acute organ dysfunction; E87.2 Acidosis; D86.0 Sarcoidosis of lung; L03.317 Cellulitis of buttock; I10 Essential (primary) hypertension; I48.0 Paroxysmal atrial fibrillation; E11.9 Type 2 diabetes mellitus without complications; Z99.81 Dependence on supplemental oxygen; Z82.49 Family history of ischemic heart disease and other diseases of the circulatory system; Z83.3 Family history of diabetes mellitus; Z79.4 Long term (current) use of insulin
CPT/HCPCS: 36415; 74177; 80053; 82140; 82962; 83036; 85025; 85027; 87040; 87116; 94760; 96374; 96375; 96376; G0378; J0696; J1170; J1650; J1815; J2405; J2543; J3010; J3370; J7030; J7040; J7512; Q9967

== ENCOUNTER 2021-03-02 22:53 | Emergency (ER) | payer MEDICAID ==
[2021-03-02] MEDS ORDERED: ASPIRIN 81 MG TAB CHEW PO ONE (23:15)
--- NOTE | 2021-03-02 23:17 | Emergency Department Report ---
ED Chest Pain HPI - General Chief Complaint: Chest Pain Stated Complaint: EMOTIONAL LOSS OF FAMILY PUI?: No Time Seen by Provider: 03/02/21 22:58 Source: patient, family Mode of arrival: Stretcher Limitations: No Limitations - History of Present Illness Initial Comments: Patient is a 40-year-old female with past medical history notable for congestive heart failure, sarcoidosis, diabetes, A. fib. She is on 4 L nasal cannula at home. Patient states that she received some bad news about a family member which caused her to pass out. When she came to she complained of chest pain. She states that her chest pain feels like a weird feeling in her chest. She also feels short of breath she also characterizes the pain as sharp, nonradiating. She states she blacked out. I spoke to the patient's son who reports that she had a 15-22nd loss of consciousness. Patient is on Eliquis for A. fib but she did not hit her head. MD Complaint: chest pain - Related Data Previous Rx's Medication Instructions Recorded Last Taken Type Insulin NPH/Regular [NovoLIN 70/30] 50 unit SUB-Q BIDDIAB units 08/24/17 09/30/18 Rx ALBUTEROL NEB's [Proventil 0.083% 2.5 mg IH Q4HRT PRN #100 nebu 10/02/18 Unknown Rx NEBS] Aspirin [Aspirin BABY CHEW TAB] 81 mg PO DAILY #30 tab.chew 10/02/18 Unknown Rx Budesonide [Pulmicort Respules] 0.25 mg IH Q12HRT #60 nebu 10/02/18 Unknown Rx predniSONE [Deltasone] 20 mg PO QDAY #30 tablet 10/02/18 Unknown Rx Benzonatate [Tessalon Perles] 100 mg PO Q8HR PRN #20 capsule 12/20/18 Unknown Rx Acetaminophen/Codeine [Tylenol 1 tab PO Q6H PRN #12 tab 01/02/19 Unknown Rx /Codeine # 3 tab] Clindamycin [Clindamycin CAP] 300 mg PO Q8H #21 cap 01/09/19 Unknown Rx HYDROcodone/APAP 5-325 [[place] 1 each PO Q6HR PRN #12 tablet 01/09/19 Unknown Rx 5/325] Cephalexin [Keflex] 750 mg PO QID #40 capsule 01/12/19 Unknown Rx Glimepiride [Amaryl] 4 mg PO BID #60 tablet 01/12/19 Unknown Rx Metoprolol [Lopressor TAB] 50 mg PO QDAY #30 tablet 01/12/19 Unknown Rx Oxycodone HCl/Acetaminophen 1 each PO Q6HR PRN #15 tablet 01/12/19 Unknown Rx [Percocet 7.5/325 mg] Potassium Chloride [K-Dur] 20 meq PO QDAY #30 tablet 01/12/19 Unknown Rx Sulfamethoxazole/Trimethoprim 2 each PO BID #40 tablet 01/12/19 Unknown Rx [Bactrim DS TAB] Torsemide [Demadex] 20 mg PO BID #60 tablet 01/12/19 Unknown Rx predniSONE [Deltasone] 20 mg PO QDAY #30 tab 01/12/19 Unknown Rx Allergies Allergy/AdvReac Type Severity Reaction Status Date / Time No Known Allergies Allergy Verified 01/09/19 09:53 Heart Score - HEART Score History: Slightly suspicious EKG: Normal Age: < 45 Risk factors: 1-2 risk factors Troponin: < normal limit HEART Score: 1 - EKG Read Time Time EKG Completed: 23:06 EKG Read Time: 23:10 ED Review of Systems ROS: Stated complaint: EMOTIONAL LOSS OF FAMILY Other details as noted in HPI Constitutional: denies: chills, fever Eyes: denies: eye discharge ENT: denies: dental pain Respiratory: shortness of breath Cardiovascular: chest pain, syncope Endocrine: no symptoms reported Gastrointestinal: denies: abdominal pain, nausea, vomiting Genitourinary: denies: frequency Musculoskeletal: denies: back pain Skin: denies: rash Neurological: denies: numbness Psychiatric: denies: anxiety, depression Hematological/Lymphatic: denies: easy bleeding ED Past Medical Hx - Past Medical History Hx Hypertension: Yes Hx CVA: No Hx Heart Attack/AMI: No Hx Congestive Heart Failure: No Hx Diabetes: Yes Hx Deep Vein Thrombosis: No Hx Pulmonary Embolism: No Hx Sickle Cell Disease: No Hx Asthma: No Hx COPD: No Hx Tuberculosis: No Hx HIV: No Additional medical history: Sarcoidosis, Home 02 2-4L. Afib - Surgical History Hx Coronary Stent: No Hx Pacemaker: No Additional Surgical History: x3 - Social History Smoking Status: Never Smoker Substance Use Type: None - Medications Home Medications: Home Medications Medication Instructions Recorded Confirmed Last Taken Type Insulin NPH/Regular [NovoLIN 70/30] 50 unit SUB-Q BIDDIAB units 08/24/17 10/01/18 09/30/18 Rx ALBUTEROL NEB's [Proventil 0.083% 2.5 mg IH Q4HRT PRN #100 nebu 10/02/18 Unknown Rx NEBS] Aspirin [Aspirin BABY CHEW TAB] 81 mg PO DAILY #30 tab.chew 10/02/18 Unknown Rx Budesonide [Pulmicort Respules] 0.25 mg IH Q12HRT #60 nebu 10/02/18 Unknown Rx predniSONE [Deltasone] 20 mg PO QDAY #30 tablet 10/02/18 12/20/18 Unknown Rx Benzonatate [Tessalon Perles] 100 mg PO Q8HR PRN #20 capsule 12/20/18 Unknown Rx Acetaminophen/Codeine [Tylenol 1 tab PO Q6H PRN #12 tab 01/02/19 Unknown Rx /Codeine # 3 tab] Clindamycin [Clindamycin CAP] 300 mg PO Q8H #21 cap 01/09/19 Unknown Rx HYDROcodone/APAP 5-325 [[place] 1 each PO Q6HR PRN #12 tablet 01/09/19 Unknown Rx 5/325] Cephalexin [Keflex] 750 mg PO QID #40 capsule 01/12/19 Unknown Rx Glimepiride [Amaryl] 4 mg PO BID #60 tablet 01/12/19 Unknown Rx Metoprolol [Lopressor TAB] 50 mg PO QDAY #30 tablet 01/12/19 Unknown Rx Oxycodone HCl/Acetaminophen 1 each PO Q6HR PRN #15 tablet 01/12/19 Unknown Rx [Percocet 7.5/325 mg] Potassium Chloride [K-Dur] 20 meq PO QDAY #30 tablet 01/12/19 Unknown Rx Sulfamethoxazole/Trimethoprim 2 each PO BID #40 tablet 01/12/19 Unknown Rx [Bactrim DS TAB] Torsemide [Demadex] 20 mg PO BID #60 tablet 01/12/19 Unknown Rx predniSONE [Deltasone] 20 mg PO QDAY #30 tab 01/12/19 Unknown Rx ED Physical Exam - General General appearance: alert, in no apparent distress - Head Head exam: Present: atraumatic, normocephalic - Eye Eye exam: Present: normal appearance Pupils: Present: normal accommodation - ENT ENT exam: Present: mucous membranes moist - Neck Neck exam: Present: normal inspection - Respiratory Respiratory exam: Present: wheezes. Absent: respiratory distress - Cardiovascular Cardiovascular Exam: Present: tachycardia. Absent: rubs, gallop - GI/Abdominal GI/Abdominal exam: Present: soft. Absent: distended, tenderness - Rectal Rectal exam: Present: deferred - Extremities Exam Extremities exam: Present: normal inspection - Back Exam Back exam: Present: normal inspection - Neurological Exam Neurological exam: Present: alert, oriented X3 - Psychiatric Psychiatric exam: Present: normal affect - Skin Skin exam: Present: warm, dry, intact ED Course Vital Signs 03/02/21 03/02/21 03/02/21 22:58 23:01 23:15 Temperature 98.4 F Pulse Rate 114 H 114 H 111 H Respiratory 21 27 H 18 Rate Blood Pressure 146/94 146/94 O2 Sat by Pulse 93 97 Oximetry 03/02/21 03/02/21 03/02/21 23:23 23:31 23:32 Temperature Pulse Rate 113 H 111 H Respiratory 26 H 22 20 Rate Blood Pressure 146/94 138/76 O2 Sat by Pulse 96 95 95 Oximetry 03/02/21 03/03/21 03/03/21 23:45 00:01 00:15 Temperature Pulse Rate 113 H 109 H 113 H Respiratory 28 H 27 H 27 H Rate Blood Pressure 138/76 131/79 131/79 O2 Sat by Pulse 93 98 89 Oximetry 03/03/21 03/03/21 03/03/21 00:31 00:45 01:01 Temperature Pulse Rate 104 H 108 H 105 H Respiratory 25 H 22 26 H Rate Blood Pressure 144/88 144/88 109/89 O2 Sat by Pulse 95 96 99 Oximetry 03/03/21 03/03/21 03/03/21 01:16 01:39 01:45 Temperature Pulse Rate 109 H Respiratory 24 Rate Blood Pressure 109/89 144/88 123/49 O2 Sat by Pulse 91 97 95 Oximetry 03/03/21 03/03/21 03/03/21 02:01 02:15 02:31 Temperature Pulse Rate Respiratory Rate Blood Pressure 125/65 125/65 125/65 O2 Sat by Pulse 96 98 98 Oximetry - Reevaluation(s) Reevaluation #1: 03/03/21 01:14 Patient reports feeling improved. Her chest pain has resolved. She has some electrolyte abnormalities that we are replacing. I have also reviewed her chest x-rays. The radiologist reads her chest x-ray as bilateral pneumonia versus pulmonary edema however patient has a history of sarcoidosis and currently however her BNP is normal, I have compared her chest x-ray to previous and it looks unchanged. I do not think the patient is in pulmonary edema and she has had no fevers chills or coughing suggestive of pneumonia. Given this I will give a small IV fluid bolus as patient states she is not been tolerating much p.o. intake. Patient likely to be discharged. Reevaluation #2: 03/03/21 02:33 Repeat troponin is negative. Patient's dimer also is normal. Given this and given that patient is improved and I think syncopal episode was likely due to response to hearing terrible news regarding a family member I think patient is safe for discharge. Patient will follow-up with primary care as needed and also return to the emergency department if she has had additional syncopal episode not related to emotional response. ED Medical Decision Making - Lab Data Result diagrams: 03/02/21 23:21 03/02/21 23:21 - EKG Data -: EKG Interpreted by Me Rate: tachycardia No standard instances Rhythm: other - EKG Data Interpretation: nonspecific ST-T wave tata - Radiology Data Radiology results: report reviewed, image reviewed - Medical Decision Making 20-year-old female who presents emergency department with complaint of chest pain shortness of breath in the setting of finding bad news on the family mem rosamaria. She also had a brief syncopal episode. Plan to evaluate for ACS, pulmonary embolism. Patient is slightly tachycardic and has some mild hypoxia. She is on 4 L nasal cannula. We will give a small IV bolus of fluids. If labs and imaging are grossly normal patient may be discharged given that I do think her reaction was likely emotional. Her heart score is low. Critical care attestation.: If time is entered above; I have spent that time in minutes in the direct care of this critically ill patient, excluding procedure time. ED Disposition Clinical Impression: Syncope with normal neurologic examination, Chest pain due to psychological stress Disposition: DC-01 TO HOME OR SELFCARE Is pt being admited?: No Does the pt Need Aspirin: No Condition: Stable Instructions: Nonspecific Chest Pain, Adult, Syncope, [id number], Syncope (ED) Additional Instructions: Your syncope was likely due to the emotional news you received today. If you have any additional chest pain or syncopal episodes please return to the emergency department for further evaluation. Referrals: PRIMARY CARE, [Primary Care Provider] - 3-5 Days DENNIS BENSON MD [Referring] - 3-5 Days Time of Disposition: 02:35
[2021-03-03 00:05] LABS: Basophils # (Auto) 0.1 K/mm3 (0.0-0.1); Basophils % (Auto) 0.5 % (0.0-1.8); Eosinophils # (Auto) 0.1 K/mm3 (0.0-0.4); Eosinophils % (Auto) 1.1 % (0.0-4.3); Hematocrit 43.3 % (30.3-42.9); Lymphocytes # (Auto) 2.7 K/mm3 (1.2-5.4); Lymphocytes % (Auto) 25.2 % (13.4-35.0); Mean Corpuscular HGB Conc 32 % (30-34); Mean Corpuscular Volume 91 fl (79-97); Monocytes # (Auto) 0.9 K/mm3 (0.0-0.8); Monocytes % (Auto) 8.7 % (0.0-7.3); Platelet Count 181 K/mm3 (140-440); Red Blood Count 4.76 M/mm3 (3.65-5.03); Red Cell Distribution Width 14.7 % (13.2-15.2)
[2021-03-03 00:16] LABS: Alanine Aminotransferase 68 units/L (7-56); Albumin 3.6 g/dL (3.9-5); BUN/Creatinine Ratio 17; Blood Urea Nitrogen 15 mg/dL (7-17); Hemolysis Index 14
--- NOTE | 2021-03-03 00:24 | XRay Report ---
CHEST 1 VIEW 03/02/2021 10:56 PM INDICATION / CLINICAL INFORMATION: cp; sob. COMPARISON: 12/19/2018 FINDINGS: SUPPORT DEVICES: None. HEART / MEDIASTINUM: No significant abnormality. LUNGS / PLEURA: There are mild diffuse patchy airspace opacities bilaterally. No pneumothorax. ADDITIONAL FINDINGS: No significant additional findings. IMPRESSION: 1. There are mild diffuse patchy airspace opacities bilaterally which could represent edema or pneumo anthony. Signer Name: Joe Salazar MD Signed: 03/03/2021 12:20 AM Workstation Name: [id number]
[2021-03-03] MEDS ORDERED: POTASSIUM CHLORIDE ER 20 MEQ TAB PO ONE (00:58)
[2021-03-03] MEDS ORDERED: MAGNESIUM OXIDE 400 MG TAB PO SCH (01:00)
[2021-03-03] MEDS ORDERED: SODIUM CHLORIDE 0.9% 250ML 250 ML IV ONE (01:13)
[2021-03-03 02:43] VITALS: BP 125/65
--- NOTE | 2021-03-03 10:22 | Electrocardiograph Report ---
[facility] Test Date: 2021-03-02 Test Time: 23:06:34 Pat Name: FADIA SWAN Department: Room: Gender: F Corporate Learning Consultant: [facility], [facility] : 1980 Requested By: BRYNN CAVAZOS Order Number: [id number] Reading MD: Indigo Crocker Measurements Intervals [place] Rate: 112 P: 52 CT: 164 QRS: -14 QRSD: 82 T: 92 QT: 352 QTc: 483 Interpretive Statements Sinus tachycardia Left axis deviation Nonspecific ST abnormality No previous ECG available for comparison Electronically Signed On 03-03-2021 10:22:19 EDT by Indigo Crocker
== END 2021-03-03 04:07 | disposition home or self-care (01) ==
LOC: ED 22:53
DX: R07.89 Other chest pain (principal); R55 Syncope and collapse; R06.02 Shortness of breath; I11.0 Hypertensive heart disease with heart failure; I50.9 Heart failure, unspecified; Z79.899 Other long term (current) drug therapy; Z79.4 Long term (current) use of insulin; Z79.82 Long term (current) use of aspirin
CPT/HCPCS: 36415; 71045; 80053; 83735; 83880; 84484; 85025; 85379; 93005; 96360; 99284; J7050